=== PATIENT | female | born 2005 | race Caucasian/White ===

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

== ENCOUNTER 2023-03-15 12:28 | Emergency (ER) | payer MEDICAID, SELFPAY ==
[2023-03-15] VITALS (31 sets, daily range): BP systolic 110–147; BP diastolic 54–94; PULSE 76–152; RESP 12–32; TEMP 37; O2SAT 98
--- NOTE | 2023-03-15 12:30 | RT.EKG_ITS ---
APPROVED REPORT Exam: Resting ECG Reason for Exam: tachycardia Patient Location: E HR:118 bpm ECG Measurements Heart Rate 118 AXIS MS 128 P 79 QRSd 77 QRS 79 QT 316 T -35 QTc 443 Conclusion Sinus tachycardia...rate> 99 Nonspecific repolarization abnormalities...ST dep, T neg, 2-3 leads
[2023-03-15 13:02] LABS: Abs Immature Grans 0.02 10^3/uL (0.0-0.06); Absolute Basophil Count 0.05 10^3/uL (0.0-0.2); Absolute Eosinophil Count 0.03 10^3/uL (0.0-0.7); Absolute Lymphocyte Count 2.35 10^3/uL (1.2-3.4); Absolute Monocyte Count 0.44 10^3/uL (0.1-0.8); Absolute Neutrophil Count 4.22 10^3/uL (1.2-6.7); Basophils % 0.7; Eosinophils % 0.4; HCT 37.8 % (36.0-46.0); HGB 12.9 g/dL (11.2-15.7); Immature Grans % 0.3; Lymphocytes % 33.1; MCH 31.2 pg (27.0-33.0); MCHC 34.1 % (32.0-36.0); MCV 92 fL (80-95); MPV 9.2 fL (8.0-11.0); Monocytes % 6.2; Neutrophils % 59.3; Platelet Count 324 10^3/uL (130-400); RBC 4.13 10^6/uL (3.93-5.22); RDW 12.2 % (11.7-14.6); WBC 7.11 10^3/uL (4.4-10.8)
[2023-03-15] MEDS: Lactated Ringers 1,000 ML 1000 ML IV (13:02)
[2023-03-15] MEDS: Dexamethasone 10 MG/ML VIAL IVP (13:02)
[2023-03-15 13:10] LABS: Mono Screening Negative (Negative)
[2023-03-15 13:22] LABS: ALT 15 U/L (14-59); AST 12 U/L (15-37); Albumin 4.4 g/dL (3.4-5.0); Alkaline Phosphatase 103 U/L (46-116); Anion Gap 15.2 mmol/L (3-11); BUN 10 mg/dL (7-18); Bilirubin, Total 0.5 mg/dL (0.2-1.0); CO2 20.8 mmol/L (21.0-32.0); CREATININE 0.9 mg/dL (0.55-1.02); Calcium 9.5 mg/dL (8.5-10.1); Chloride 107 mmol/L (98-107); Estimated GFR 94.44 (mL/min/1.73m2); Glucose 114 mg/dL (74-106); Potassium 3.7 mmol/L (3.5-5.1); Sodium 143 mmol/L (136-145); Total Protein 7.6 g/dL (6.4-8.2); Troponin I < 50 ng/L (< or =60)
--- NOTE | 2023-03-15 14:15 | DI.RAD_ITS ---
Exam(s) XR CHEST 2V PA LATERAL EXAM: XR CHEST 2V PA LATERAL CLINICAL HISTORY: shortness of breath TECHNIQUE: 2D digital imaging was performed. COMPARISON: No exams were available for comparison FINDINGS: HEART: Normal size. Aorta: Not dilated. PULMONARY VASCULATURE: Normal. LUNGS: Clear. PLEURAL SPACE: No pleural effusion or pneumothorax. BONE:Unremarkable for age. Soft tissues: Unremarkable. IMPRESSION: No acute abnormality. DATA REPOSITORY: RADIATION DOSE DELIVERED:
[2023-03-15 14:26] LABS: COVID-19 PCR Negative (Negative); Influenza A PCR Negative (Negative); Influenza B PCR Negative (Negative); RSV PCR Negative (Negative)
[2023-03-15 14:27] LABS: Source Nasopharynx
--- NOTE | 2023-03-15 15:16 | ED.GENADUL_ITS ---
HPI General Date/Time Provider Initiated Documentation: 03/15/23 12:45 . HPI Narrative: This 17-year-old female with history of oppositional behavior, anxiety, ADHD, familial cold auto inflammatory syndrome and numerous allergies presents with report of difficulty swallowing since 11:00 last night. Patient reportedly had some venison with some sort of spicy honey sauce and approximately 5 hours later developed some difficulty swallowing which she describes as a tightness with some shortness of breath. She used her inhaler for this and felt improvement. She not taken any additional medications at this time and her symptoms have persisted. She states she has a sore throat. Denies any additional complaints at this time. Receives an injection monthly for report of chronic fevers. Denies any drooling. Denies any rashes or lesions. Denies any chance of . Overall feeling mild improvement in symptoms per patient. Related Data Home Medications Medication Instructions Recorded Confirmed ibuprofen 200 mg tablet (Ibuprofen 600 mg PO PRN PRN 08/14/18 03/15/23 IB) inhalational spacing device (Space ##2 12/17/20 03/15/23 Chamber Plus) albuterol sulfate 90 mcg/actuation 2 puff inhalation Q4H PRN ##2 05/24/21 03/15/23 aerosol inhaler (ProAir HFA) chlorhexidine gluconate 0.12 % 15 ml mucous membrane BID #118 mL 05/24/21 03/15/23 mouthwash (Peridex) epinephrine 0.3 mg/0.3 mL 0.3 mg (0.3 mL) IM ONCE ##1 05/24/21 03/15/23 injection, auto-injector (EpiPen 2-Wellington) hydrocortisone acetate 1 % topical 1 applic topical BID #28.4 grams 05/24/21 03/15/23 cream ketotifen fumarate 0.025 % (0.035 1 drp ophthalmic (eye) BID PRN 05/24/21 03/15/23 %) eye drops allergy symptoms #5 mL cyproheptadine 4 mg tablet 4 mg PO BID #120 tabs 03/13/22 03/15/23 topiramate 25 mg tablet 25 mg PO QHS #90 tabs 03/21/22 03/15/23 topiramate 50 mg tablet 50 mg PO QAM #90 tabs 03/21/22 03/15/23 naproxen sodium 220 mg capsule 220 mg PO Q8H PRN pain #10 caps 05/22/22 03/15/23 ondansetron 4 mg disintegrating 4 mg PO Q8H PRN PRN nausea and 05/22/22 03/15/23 tablet vomiting #8 tabs cetirizine 10 mg tablet 10 mg PO DAILY #90 tab-caps 07/24/22 03/15/23 norethindrone (contraceptive) 0.35 0.35 mg PO DAILY #84 tabs 08/14/22 03/15/23 mg tablet famotidine 10 mg tablet 10 mg PO BID #60 tabs 09/20/22 03/15/23 Symbicort 80 mcg-4.5 mcg/actuation See Rx Instructions .Route 11/06/22 03/15/23 HFA aerosol inhaler .COMPLEX #10.2 grams (budesonide-formoterol) sertraline 100 mg tablet 100 mg PO DAILY #30 tabs 01/29/23 03/15/23 Previous Rx's Medication Instructions Recorded inhalational spacing device (Space ##2 12/17/20 Chamber Plus) albuterol sulfate 90 mcg/actuation 2 puff inhalation Q4H PRN ##2 05/24/21 aerosol inhaler (ProAir HFA) chlorhexidine gluconate 0.12 % 15 ml mucous membrane BID #118 mL 05/24/21 mouthwash (Peridex) epinephrine 0.3 mg/0.3 mL 0.3 mg (0.3 mL) IM ONCE ##1 05/24/21 injection, auto-injector (EpiPen 2-Wellington) hydrocortisone acetate 1 % topical 1 applic topical BID #28.4 grams 05/24/21 cream ketotifen fumarate 0.025 % (0.035 1 drp ophthalmic (eye) BID PRN 05/24/21 %) eye drops allergy symptoms #5 mL cyproheptadine 4 mg tablet 4 mg PO BID #120 tabs 03/13/22 topiramate 25 mg tablet 25 mg PO QHS #90 tabs 03/21/22 topiramate 50 mg tablet 50 mg PO QAM #90 tabs 03/21/22 naproxen sodium 220 mg capsule 220 mg PO Q8H PRN pain #10 caps 05/22/22 ondansetron 4 mg disintegrating 4 mg PO Q8H PRN PRN nausea and 05/22/22 tablet vomiting #8 tabs cetirizine 10 mg tablet 10 mg PO DAILY #90 tab-caps 07/24/22 norethindrone (contraceptive) 0.35 0.35 mg PO DAILY #84 tabs 08/14/22 mg tablet famotidine 10 mg tablet 10 mg PO BID #60 tabs 09/20/22 Symbicort 80 mcg-4.5 mcg/actuation See Rx Instructions .Route 11/06/22 HFA aerosol inhaler .COMPLEX #10.2 grams (budesonide-formoterol) sertraline 100 mg tablet 100 mg PO DAILY #30 tabs 01/29/23 Allergies Allergy/AdvReac Type Severity Reaction Status Date / Time bee venom protein (honey bee) Allergy Severe PROBLEMS Verified 02/01/23 13:04 BREATHING/ HIVES davis Allergy Mild Skin Rash Verified 02/01/23 13:04 cow dander Allergy Verified 02/01/23 13:04 grass pollen Allergy Verified 02/01/23 13:04 perfume AdvReac Mild watery Verified 02/01/23 13:04 eyes, runny nose, face gets blotchy pollen extracts AdvReac Mild watery Verified 02/01/23 13:04 eyes, runny nose, face gets blotchy cologne Allergy Mild Uncoded 02/01/23 13:04 hay Allergy Mild Uncoded 02/01/23 13:04 Haile] Allergy Mild rash Uncoded 02/01/23 13:04 sun Allergy Mild skin Uncoded 02/01/23 13:04 blotches Halloween makeup AdvReac Skin Rash Uncoded 02/01/23 13:04 General Stated Complaint: Allergic GARY: 3 Course Vital Signs Vital signs: Vital Signs Temperature 37.0 C 03/15/23 12:32 Pulse 128 H 03/15/23 12:32 Respiratory Rate 24 03/15/23 12:32 Blood Pressure 147/94 H 03/15/23 12:32 Pulse Oximetry 98 03/15/23 12:32 Temperature 37.0 C 03/15/23 12:32 Temperature Source Temporal Artery Scan 03/15/23 12:32 Pulse 90 03/15/23 13:46 Pulse 92 H 03/15/23 13:50 Respiratory Rate 14 01/25/24 13:50 Respiratory Effort Normal 03/15/23 13:11 Respiratory Pattern Normal 03/15/23 13:11 Blood Pressure 111/57 L 03/15/23 13:46 Blood Pressure Mean 73 03/15/23 13:46 Pulse Oximetry 98 03/15/23 12:32 Oxygen Delivery Method Room Air 03/15/23 12:32 Oxygen Flow Rate 0 03/15/23 12:32 Lab/Test Results Lab/Test Results: 03/15/23 13:20 Tonsil - Left Group A Streptococcus Culture - Pending Laboratory Tests Range/Units 03/15/23 03/15/23 12:55 13:44 WBC (4.4-10.8) 10^3/uL 7.11 RBC (3.93-5.22) 10^6/uL 4.13 Hgb (11.2-15.7) g/dL 12.9 Hct (36.0-46.0) % 37.8 MCV (80-95) fL 92 MCH (27.0-33.0) pg 31.2 MCHC (32.0-36.0) % 34.1 RDW (11.7-14.6) % 12.2 Plt Count (130-400) 10^3/uL 324 MPV (8.0-11.0) fL 9.2 Immature Gran % 0.3 Neutrophils % 59.3 Lymphocytes % 33.1 Monocytes % 6.2 Eosinophils % 0.4 Basophils % 0.7 Nucleated RBC % (0.0-0.3) % 0.0 Absolute Neutrophils (1.2-6.7) 10^3/uL 4.22 Absolute Lymphocytes (1.2-3.4) 10^3/uL 2.35 Absolute Monocytes (0.1-0.8) 10^3/uL 0.44 Absolute Eosinophils (0.0-0.7) 10^3/uL 0.03 Absolute Basophils (0.0-0.2) 10^3/uL 0.05 Sodium (136-145) mmol/L 143 Potassium (3.5-5.1) mmol/L 3.7 Chloride (98-107) mmol/L 107 Carbon Dioxide (21.0-32.0) mmol/L 20.8 L Anion Gap (3-11) mmol/L 15.2 H BUN (7-18) mg/dL 10 Creatinine (0.55-1.02) mg/dL 0.9 Est GFR (CKD-EPI 2020) (mL/min/1.73m2) 94.44 Glucose (74-106) mg/dL 114 H Calcium (8.5-10.1) mg/dL 9.5 Total Bilirubin (0.2-1.0) mg/dL 0.5 AST (15-37) U/L 12 L ALT (14-59) U/L 15 Alkaline Phosphatase (46-116) U/L 103 Troponin I (< or =60) ng/L < 50 Total Protein (6.4-8.2) g/dL 7.6 Albumin (3.4-5.0) g/dL 4.4 COVID-19 Source Nasopharynx SARS-CoV-2 (PCR) (Negative) Negative Monoscreen (Negative) Negative Influenza Type A (PCR) (Negative) Negative Influenza Type B (PCR) (Negative) Negative RSV (PCR) (Negative) Negative POC- Test(urine) Negative POC Strep Test-RADHA(Rapid) Start: 03/15/23 12:47 Freq: .Rapid Strep Test Status: Active Protocol: Document 03/15/23 13:51 N.RUDDY (Rec: 03/15/23 13:51 NYUDITH [id number]) Strep test-RADHA(Rapid)-POC POC-Strep test-RADHA (Rapid) Negative POC-Strep test-RADHA (Rapid) Negative Medical Decision Making 17-year-old female in no acute distress presents with some difficulty swallowing and shortness of breath, generally feeling unwell, uvula patent oropharynx midline, maintaining secretions, lungs clear to auscultation, sinus tachycardia, temp of 100.7, administer Tylenol and fluids, labs consistent with dehydration, no other significant acute abnormality on labs Given a dose of steroid to help with swallowing difficulties, low suspicion clinically for pulmonary embolism, no calf swelling or tenderness, no tachycardia, no history of coagulopathy, no recent flights, surgeries, long drives. After fluids, patient pulse is 90, oxygenation 98% on room air, blood pressure stable at 122/82, no respiratory distress, very low suspicion clinically for pulmonary embolism, patient appears quite anxious on exam and is looking or showing signs of marked improvement at time of reassessment Troponin negative, negative test Patient will be discharged home and encouraged to consume regular fluids, Tylenol, received 72-hour Decadron dose in the emergency department and will take Benadryl as needed Will continue to follow fevers, chest x-ray without acute abnormality denies any urinary complaints, no abdominal tenderness lungs are clear to auscultation Given the threshold to return with new or worsening complaints, will stay away from honey and other products in the tricky until reassessed Case discussed with Dr. Berger will reevaluate patient in the office tomorrow Discharged home in stable condition with stable vitals, oropharynx patent, vital signs improved Quality:SDOH Health Related Social Needs: No Data to Display PFSH All Active Problems (Updated 03/15/23 @ 15:10 by AMANDA Leonard) Fever (Acute) Pharyngitis (Acute) Familial cold autoinflammatory syndrome (Chronic) Followed by rheumatology at [facility] Anxiety (Chronic) Encounter for vaccination (Acute) Parosmia (Acute) Allergic rhinitis (Acute) School problem (Chronic) IEP updated 05/11/20-05/10/21: Counseling services once a week 45 min; Math intervention 4 times a week; reading intervention twice a week; updated IEP in chart as of 07/21/20 Custody issue (Acute) IN CUSTODY OF [employer] SINCE 2 MONTHS OF AGE- PARENTS NOT INVOLVED Dizziness (Acute) 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 On IEP. 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 Pectus excavatum (Chronic 12/26/11) surgery following 02/04 Oppositional behavior (Chronic 08/16/15) Insomnia (Chronic 02/05/17) Frequent headaches (Chronic 09/10/14) neurology- topamax rx Asthma (Chronic 05/24/12) 10/2013 mild intermittent ADHD (attention deficit hyperactivity disorder), combined type (Chronic 09/07/14) diagnosed by Child Development at [facility]- started concerta Medical History ADHD (attention deficit hyperactivity disorder) Asthma Bee sting allergy Depression GERD (gastroesophageal reflux disease) Sleep difficulties Speech delay Surgical History Adenoidectomy Tonsillectomy Family History Mother No problems noted. Father Mental disorder schizophrenia Other Mental disorder paternal femaily members Developmental delay sibs/half sibs ADHD (attention deficit hyperactivity disorder) maternal and paternal sides Social History Smoking/Tobacco Use Status: Never Smoking risk assessment performed?: Yes Alcohol Intake: never Drug use: Never Substance use type: does not use Housing: house Communication Needs: None and Corrective Lenses Education Level: high school Details: 11th grade () [place] Pets and animals: Yes (dogs, cat, ferret) Pets and animals: cat(s), dog(s) and ferret(s) Do you feel safe at home: Yes Do you feel safe in your relationship?: Yes Additional Social history: GRANDMOTHER WITH CUSTODY SINCE 2 MONTHS OF AGE- PARENTS HOMELESS AND NEGLECT Discharge Plan Disposition Patient Disposition: Home Discharge Details Clinical Impression: Pharyngitis, Familial cold autoinflammatory syndrome, Fever Primary Care Provider: Mukesh Keating ED Provider: Lissa Hernandez Home Meds and New Rx's Prescriptions: Continued naproxen sodium 220 mg capsule 220 mg PO Q8H PRN (Reason: pain) Qty: 10 0RF ondansetron 4 mg tablet,disintegrating 4 mg PO Q8H PRN PRN (Reason: nausea and vomiting) Qty: 8 0RF famotidine 10 mg tablet 10 mg PO BID Qty: 60 0RF (DME) Space Chamber Plus Spacer 1 ea Miscellaneous Q4H PRN Qty: 2 0RF Rx Instructions: use with inhaler every 4 hours as needed albuterol sulfate [ProAir HFA] 90 mcg/actuation HFA aerosol inhaler 2 puff Inhalation Q4H PRN Qty: 2 2RF Rx Instructions: give 2puffs with spacer every 4 hr as needed chlorhexidine gluconate [Peridex] 0.12 % mouthwash 15 ml mucous membrane BID Qty: 118 2RF Rx Instructions: rinse mouth 30 seconds and spit out twice a day epinephrine [EpiPen 2-Wellington] 0.3 mg/0.3 mL auto-injector 0.3 mg IM ONCE Qty: 1 2RF hydrocortisone acetate 1 % cream 1 applic Topical BID Qty: 28.4 1RF Rx Instructions: apply to areas of allergic reaction on face or body- twice a day for up to 7 days ketotifen fumarate 0.025 % (0.035 %) drops 1 drp Ophthalmic BID PRN (Reason: allergy symptoms) Qty: 5 3RF Rx Instructions: use for dry eyes cyproheptadine 4 mg tablet 4 mg PO BID Qty: 120 1RF Rx Instructions: IN AM AND HS- please dispense in 2 bottles thank you! topiramate 25 mg tablet 25 mg PO QHS Qty: 90 3RF topiramate 50 mg tablet 50 mg PO QAM Qty: 90 3RF cetirizine 10 mg tablet 10 mg PO DAILY Qty: 90 3RF norethindrone (contraceptive) 0.35 mg tablet 0.35 mg PO DAILY Qty: 84 3RF Rx Instructions: start day 1 of menstrual cycle budesonide-formoterol [Symbicort] 80-4.5 mcg/actuation HFA aerosol inhaler See Rx Instructions .ROUTE .COMPLEX Qty: 10.2 2RF Dose Instruction: INHALE 2 PUFFS BY MOUTH TWICE DAILY. MAY ALSO USE 1-2 PUFFS EVERY 4 HOURS NEEDED Rx Instructions: INHALE 2 PUFFS BY MOUTH TWICE DAILY. MAY ALSO USE 1-2 PUFFS EVERY 4 HOURS NEEDED sertraline 100 mg tablet 100 mg PO DAILY Qty: 30 2RF ibuprofen [Ibuprofen IB] 200 mg tablet 600 mg PO PRN PRN Discharge Instructions Instructions: Urticaria (ED), Pharyngitis (ED), Fever in Adults (ED) Additional Instructions: Please call the barrel raiser helper's office first thing in the morning to be reassessed Continue on your prescribed medications Stay away from [facility] to have dedicated testing You may take Benadryl as needed for symptoms, 25 mg Please keep yourself hydrated you are dehydrated, you did receive fluids in the emergency department and you are feeling improvement Take Tylenol as needed for fever, your temperature was 100.7 in the emergency department I do not see an obvious source of infection, this may be viral or related to her rheumatological history You may take Tylenol 500 mg every 4-6 hours as needed for fever control, fevers any temperature over 100.4 Referrals: Mukesh Keating MD [Primary Care Provider] -
== END 2023-03-15 15:25 | disposition home or self-care (01) ==
PROVIDERS: Emergency Provider Physician Assistant; PCP Pediatrics
DX: J02.9 Acute pharyngitis, unspecified (principal); M04.2 Cryopyrin-associated periodic syndromes; R05.9 Cough, unspecified
CPT/HCPCS: 80053; 81025; 87637; 87880; 93005; 96361; 96374; 96375; 99285; 71046; 84484; 85025; 86308; 87081; 93010; 99284; J0131; J1100

== ENCOUNTER 2023-03-17 15:21 | Emergency (ER) | payer MEDICAID, SELFPAY ==
[2023-03-17] VITALS (36 sets, daily range): BP systolic 115–146; BP diastolic 56–99; PULSE 68–136; RESP 10–23; TEMP 37.7; O2SAT 99–100
--- NOTE | 2023-03-17 15:15 | RT.EKG_ITS ---
APPROVED REPORT Exam: Resting ECG Reason for Exam: High Heart Rate Patient Location: E HR:91 bpm ECG Measurements Heart Rate 91 AXIS MN 122 P 80 QRSd 83 QRS 71 QT 353 T [id number] QTc 436 Conclusion Sinus rhythm normal axis no ST changes
[2023-03-17 15:48] LABS: Abs Immature Grans 0.02 10^3/uL (0.0-0.06); Absolute Basophil Count 0.06 10^3/uL (0.0-0.2); Absolute Eosinophil Count 0.02 10^3/uL (0.0-0.7); Absolute Lymphocyte Count 2.72 10^3/uL (1.2-3.4); Absolute Monocyte Count 0.39 10^3/uL (0.1-0.8); Absolute Neutrophil Count 4.46 10^3/uL (1.2-6.7); Basophils % 0.8; Eosinophils % 0.3; HGB 12.9 g/dL (11.2-15.7); Immature Grans % 0.3; Lymphocytes % 35.5; MCH 31.2 pg (27.0-33.0); MCHC 33.9 % (32.0-36.0); MCV 92 fL (80-95); MPV 9.3 fL (8.0-11.0); Monocytes % 5.1; Platelet Count 297 10^3/uL (130-400); RBC 4.13 10^6/uL (3.93-5.22); RDW 12.3 % (11.7-14.6); RDW-SD 41.4 fL; WBC 7.67 10^3/uL (4.4-10.8)
[2023-03-17] MEDS: LORazepam 2 MG/ML VIAL 0.5 MG IVP (15:49)
[2023-03-17] MEDS: Normal Saline 1,000 ML 1000 ML IV ×2 (15:50→16:55)
--- NOTE | 2023-03-17 15:50 | ED.GENADUL_ITS ---
HPI General Date/Time Provider Initiated Documentation: 03/17/23 15:38 . Limitations to Documentation: no limitations . Information obtained by: patient . HPI Narrative: 17-year-old female with past medical history including familial colorectal inflammatory syndrome, anxiety, asthma, presents for evaluation of palpitations. She reports that when she stands up she feels like her heart is racing and she feels lightheaded. She has not had any loss of consciousness or syncope. Denies any chest pain. She states when she lays back down she feels better. She reports that the symptoms have been ongoing since she was seen in the emergency department 2 days ago for an allergic reaction to honey. She was not discharged with any medications. She was not given epinephrine at that time. Related Data Home Medications Medication Instructions Recorded Confirmed ibuprofen 200 mg tablet (Ibuprofen 600 mg PO PRN PRN 08/14/18 03/17/23 IB) inhalational spacing device (Space ##2 12/17/20 03/15/23 Chamber Plus) chlorhexidine gluconate 0.12 % 15 ml mucous membrane BID #118 mL 05/24/21 03/17/23 mouthwash (Peridex) epinephrine 0.3 mg/0.3 mL 0.3 mg (0.3 mL) IM ONCE ##1 05/24/21 03/17/23 injection, auto-injector (EpiPen 2-Wellington) hydrocortisone acetate 1 % topical 1 applic topical BID #28.4 grams 05/24/21 03/17/23 cream ketotifen fumarate 0.025 % (0.035 1 drp ophthalmic (eye) BID PRN 05/24/21 03/17/23 %) eye drops allergy symptoms #5 mL cyproheptadine 4 mg tablet 4 mg PO BID #120 tabs 03/13/22 03/17/23 topiramate 25 mg tablet 25 mg PO QHS #90 tabs 03/21/22 03/17/23 topiramate 50 mg tablet 50 mg PO QAM #90 tabs 03/21/22 03/17/23 naproxen sodium 220 mg capsule 220 mg PO Q8H PRN pain #10 caps 05/22/22 03/17/23 ondansetron 4 mg disintegrating 4 mg PO Q8H PRN PRN nausea and 05/22/22 03/17/23 tablet vomiting #8 tabs cetirizine 10 mg tablet 10 mg PO DAILY #90 tab-caps 07/24/22 03/17/23 norethindrone (contraceptive) 0.35 0.35 mg PO DAILY #84 tabs 08/14/22 03/17/23 mg tablet famotidine 10 mg tablet 10 mg PO BID #60 tabs 09/20/22 03/17/23 Symbicort 80 mcg-4.5 mcg/actuation See Rx Instructions .Route 11/06/22 03/17/23 HFA aerosol inhaler .COMPLEX #10.2 grams (budesonide-formoterol) sertraline 100 mg tablet 100 mg PO DAILY #30 tabs 01/29/23 03/17/23 bupropion HCl 150 mg 24 hr tablet, 150 mg PO QAM #30 tabs 03/16/23 03/17/23 extended release (Wellbutrin XL) Previous Rx's Medication Instructions Recorded inhalational spacing device (Space ##2 12/17/20 Chamber Plus) chlorhexidine gluconate 0.12 % 15 ml mucous membrane BID #118 mL 05/24/21 mouthwash (Peridex) epinephrine 0.3 mg/0.3 mL 0.3 mg (0.3 mL) IM ONCE ##1 05/24/21 injection, auto-injector (EpiPen 2-Wellington) hydrocortisone acetate 1 % topical 1 applic topical BID #28.4 grams 05/24/21 cream ketotifen fumarate 0.025 % (0.035 1 drp ophthalmic (eye) BID PRN 05/24/21 %) eye drops allergy symptoms #5 mL cyproheptadine 4 mg tablet 4 mg PO BID #120 tabs 03/13/22 topiramate 25 mg tablet 25 mg PO QHS #90 tabs 03/21/22 topiramate 50 mg tablet 50 mg PO QAM #90 tabs 03/21/22 naproxen sodium 220 mg capsule 220 mg PO Q8H PRN pain #10 caps 05/22/22 ondansetron 4 mg disintegrating 4 mg PO Q8H PRN PRN nausea and 05/22/22 tablet vomiting #8 tabs cetirizine 10 mg tablet 10 mg PO DAILY #90 tab-caps 07/24/22 norethindrone (contraceptive) 0.35 0.35 mg PO DAILY #84 tabs 08/14/22 mg tablet famotidine 10 mg tablet 10 mg PO BID #60 tabs 09/20/22 Symbicort 80 mcg-4.5 mcg/actuation See Rx Instructions .Route 11/06/22 HFA aerosol inhaler .COMPLEX #10.2 grams (budesonide-formoterol) sertraline 100 mg tablet 100 mg PO DAILY #30 tabs 01/29/23 bupropion HCl 150 mg 24 hr tablet, 150 mg PO QAM #30 tabs 03/16/23 extended release (Wellbutrin XL) Allergies Allergy/AdvReac Type Severity Reaction Status Date / Time bee venom protein (honey bee) Allergy Severe PROBLEMS Verified 03/17/23 15:30 BREATHING/ HIVES honey Allergy Severe Verified 03/17/23 15:30 davis Allergy Mild Skin Rash Verified 03/17/23 15:30 cow dander Allergy Verified 03/17/23 15:30 grass pollen Allergy Verified 03/17/23 15:30 perfume AdvReac Mild watery Verified 03/17/23 15:30 eyes, runny nose, face gets blotchy pollen extracts AdvReac Mild watery Verified 03/17/23 15:30 eyes, runny nose, face gets blotchy cologne Allergy Mild Uncoded 03/17/23 15:30 hay Allergy Mild Uncoded 03/17/23 15:30 Haile] Allergy Mild rash Uncoded 03/17/23 15:30 sun Allergy Mild skin Uncoded 03/17/23 15:30 blotches Halloween makeup AdvReac Skin Rash Uncoded 03/17/23 15:30 General Stated Complaint: Palpitatns GARY: 2 Exam Narrative Exam Narrative: Review of Systems: All systems reviewed & are unremarkable except as noted in HPI and below Well-developed, tearful, anxious NACT PERRL, normal conjunctiva RRR, Unlabored respiratory effort, clear breath sounds bilaterally Nondistended abdomen Extremities w/o deformity, no cyanosis, no edema No rashes or lesions. no focal neurologic deficits Course Vital Signs Vital signs: Vital Signs Temperature 37.7 C H 03/17/23 15:25 Pulse 99 H 03/17/23 15:25 Respiratory Rate 18 03/17/23 15:25 Blood Pressure 146/99 H 03/17/23 15:25 Pulse Oximetry 100 03/17/23 15:25 Temperature 37.7 C H 03/17/23 15:25 Pulse 99 H 03/17/23 15:25 Respiratory Rate 18 03/17/23 15:25 Respiratory Effort Non-Labored 03/17/23 15:28 Blood Pressure 146/99 H 03/17/23 15:25 Pulse Oximetry 100 03/17/23 15:25 Pain Level 6 03/17/23 15:25 Lab/Test Results Lab/Test Results: Laboratory Tests Range/Units 03/17/23 15:35 WBC (4.4-10.8) 10^3/uL 7.67 RBC (3.93-5.22) 10^6/uL 4.13 Hgb (11.2-15.7) g/dL 12.9 Hct (36.0-46.0) % 38.0 MCV (80-95) fL 92 MCH (27.0-33.0) pg 31.2 MCHC (32.0-36.0) % 33.9 RDW (11.7-14.6) % 12.3 Plt Count (130-400) 10^3/uL 297 MPV (8.0-11.0) fL 9.3 Immature Gran % 0.3 Neutrophils % 58.0 Lymphocytes % 35.5 Monocytes % 5.1 Eosinophils % 0.3 Basophils % 0.8 Nucleated RBC % (0.0-0.3) % 0.0 Absolute Neutrophils (1.2-6.7) 10^3/uL 4.46 Absolute Lymphocytes (1.2-3.4) 10^3/uL 2.72 Absolute Monocytes (0.1-0.8) 10^3/uL 0.39 Absolute Eosinophils (0.0-0.7) 10^3/uL 0.02 Absolute Basophils (0.0-0.2) 10^3/uL 0.06 Medical Decision Making Emergent evaluation of palpitations. Initial differential includes dehydration, vasovagal episode, orthostatic. Plan for lab work, IV fluids. Her orthostatic vital signs are positive. Will continue to resuscitate with IV fluids. She is highly anxious. Will give a dose of Ativan and reassess. 1640: On reassessment, the patient reports that she still feels dizzy. She has received a liter of IV fluids, but her heart rate still goes from the 80s to 120s when she stands up. Lab work is unremarkable. Will repeat a fluid bolus and reassess. Final disposition pending vital sign reassessment after second liter. Medical Records Medical records reviewed: Yes I reviewed the patient's medical records. Lab Data Lab results reviewed: Yes I reviewed the patient's lab results. ECG Data Attestation: I personally reviewed and interpreted this ECG (s) as follows: Interpretation: Sinus 91 normal axis no acute ischemic changes Quality:SDOH Health Related Social Needs: No Data to Display PFSH All Active Problems (Updated 03/17/23 @ 16:37 by Darien Betancourt MD) Heart palpitations (Acute) Orthostatic dizziness (Acute) Fever (Acute) Pharyngitis (Acute) Familial cold autoinflammatory syndrome (Chronic) Followed by rheumatology at 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 On IEP. 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 Father Mental disorder schizophrenia Other Mental disorder paternal femaily members Developmental delay sibs/half sibs ADHD (attention deficit hyperactivity disorder) maternal and paternal sides Social History Smoking/Tobacco Use Status: Never Smoking risk assessment performed?: Yes Alcohol Intake: never Drug use: Never Substance use type: does not use Housing: house Communication Needs: None and Corrective Lenses Education Level: high school Details: 11th grade () [place] Pets and animals: Yes (dogs, cat, ferret) Pets and animals: cat(s), dog(s) and ferret(s) Do you feel safe at home: Yes Do you feel safe in your relationship?: Yes Additional Social history: GRANDMOTHER WITH CUSTODY SINCE 2 MONTHS OF AGE- PARENTS HOMELESS AND NEGLECT Discharge Plan Discharge Details Chief Complaint: Palpitatns Clinical Impression: Orthostatic dizziness, Heart palpitations Primary Care Provider: Mukesh Keating ED Provider: Darine Betancourt [place] Meds and New Rx's Prescriptions: No Action naproxen sodium 220 mg capsule 220 mg PO Q8H PRN (Reason: pain) Qty: 10 0RF ondansetron 4 mg tablet,disintegrating 4 mg PO Q8H PRN PRN (Reason: nausea and vomiting) Qty: 8 0RF famotidine 10 mg tablet 10 mg PO BID Qty: 60 0RF bupropion HCl [Wellbutrin XL] 150 mg tablet extended release 24 hr 150 mg PO QAM Qty: 30 0RF (DME) Space Chamber Plus Spacer 1 ea Miscellaneous Q4H PRN Qty: 2 0RF Rx Instructions: use with inhaler every 4 hours as needed chlorhexidine gluconate [Peridex] 0.12 % mouthwash 15 ml mucous membrane BID Qty: 118 2RF Rx Instructions: rinse mouth 30 seconds and spit out twice a day epinephrine [EpiPen 2-Wellington] 0.3 mg/0.3 mL auto-injector 0.3 mg IM ONCE Qty: 1 2RF hydrocortisone acetate 1 % cream 1 applic Topical BID Qty: 28.4 1RF Rx Instructions: apply to areas of allergic reaction on face or body- twice a day for up to 7 days ketotifen fumarate 0.025 % (0.035 %) drops 1 drp Ophthalmic BID PRN (Reason: allergy symptoms) Qty: 5 3RF Rx Instructions: use for dry eyes cyproheptadine 4 mg tablet 4 mg PO BID Qty: 120 1RF Rx Instructions: IN AM AND HS- please dispense in 2 bottles thank you! topiramate 25 mg tablet 25 mg PO QHS Qty: 90 3RF topiramate 50 mg tablet 50 mg PO QAM Qty: 90 3RF cetirizine 10 mg tablet 10 mg PO DAILY Qty: 90 3RF norethindrone (contraceptive) 0.35 mg tablet 0.35 mg PO DAILY Qty: 84 3RF Rx Instructions: start day 1 of menstrual cycle budesonide-formoterol [Symbicort] 80-4.5 mcg/actuation HFA aerosol inhaler See Rx Instructions .ROUTE .COMPLEX Qty: 10.2 2RF Dose Instruction: INHALE 2 PUFFS BY MOUTH TWICE DAILY. MAY ALSO USE 1-2 PUFFS EVERY 4 HOURS NEEDED Rx Instructions: INHALE 2 PUFFS BY MOUTH TWICE DAILY. MAY ALSO USE 1-2 PUFFS EVERY 4 HOURS NEEDED sertraline 100 mg tablet 100 mg PO DAILY Qty: 30 2RF ibuprofen [Ibuprofen IB] 200 mg tablet 600 mg PO PRN PRN
[2023-03-17 16:14] LABS: ALT 13 U/L (14-59); AST 13 U/L (15-37); Albumin 4.7 g/dL (3.4-5.0); Alkaline Phosphatase 95 U/L (46-116); Anion Gap 12.5 mmol/L (3-11); BUN 15 mg/dL (7-18); Bilirubin, Total 0.5 mg/dL (0.2-1.0); CO2 23.5 mmol/L (21.0-32.0); CREATININE 0.8 mg/dL (0.55-1.02); Calcium 9.6 mg/dL (8.5-10.1); Chloride 107 mmol/L (98-107); Estimated GFR 108.78 (mL/min/1.73m2); Glucose 104 mg/dL (74-106); Potassium 3.5 mmol/L (3.5-5.1); Sodium 143 mmol/L (136-145); Total Protein 7.8 g/dL (6.4-8.2)
[2023-03-17 16:17] LABS: TSH (W/Ref FT4) 2.29 uIU/mL (0.52-4.13)
--- NOTE | 2023-03-17 17:03 | W.EDPROG ---
Date of service: 03/17/23 Time of Service: 17:04 Medical Decision Making I received signout on this 17-year-old female in the emergency department in the setting of palpitations with dizziness. She has not been eating and drinking well over the past several days secondary to a visit for an allergic reaction last week. She has reassuring labs. She was found to be mildly orthostatic. She is receiving a second liter of IV fluids. She has also received lorazepam. Plan is to repeat orthostatic vital signs. She has recently been started on bupropion. 6:30 PM Patient felt markedly improved. She received 2 L. She was not nauseous nor vomiting. Her heart rate did not go up when she stood following fluids. It transiently increased when she she was supine. At rest her heart rate is now in the 70s. On reassessment she remains in no acute distress and is eager for discharge. It is certainly possible that the patient may have POTS syndrome and may require autonomic testing. Alternatively her new bupropion could be causing dizziness and possibly a tacky dysrhythmia although none were captured on telemetry in the emergency department. Given that she is not vomiting and she has no acute electrolyte abnormalities I feel that she is appropriate for an empiric trial of discharge with expectant outpatient management PCP follow-up. Quality:SDOH Health Related Social Needs: No Data to Display Sign Out Sign Out Data: Sign Out Comment: 17y F with dizziness with standing. +orthostatic HR (80>120s) labs unremarkable. +++anxiety plan for 2L and repeat orthostatics Last updated by Darien Betancourt MD at 03/17/23 16:39 Discharge Plan Disposition Patient Disposition: Home Discharge Details Clinical Impression: Orthostatic dizziness, Heart palpitations Primary Care Provider: Mukesh Keating ED Provider: Tobi Lorenzo Home Meds and New Rx's Prescriptions: Continued naproxen sodium 220 mg capsule 220 mg PO Q8H PRN (Reason: pain) Qty: 10 0RF ondansetron 4 mg tablet,disintegrating 4 mg PO Q8H PRN PRN (Reason: nausea and vomiting) Qty: 8 0RF famotidine 10 mg tablet 10 mg PO BID Qty: 60 0RF bupropion HCl [Wellbutrin XL] 150 mg tablet extended release 24 hr 150 mg PO QAM Qty: 30 0RF (DME) Space Chamber Plus Spacer 1 ea Miscellaneous Q4H PRN Qty: 2 0RF Rx Instructions: use with inhaler every 4 hours as needed chlorhexidine gluconate [Peridex] 0.12 % mouthwash 15 ml mucous membrane BID Qty: 118 2RF Rx Instructions: rinse mouth 30 seconds and spit out twice a day epinephrine [EpiPen 2-Wellington] 0.3 mg/0.3 mL auto-injector 0.3 mg IM ONCE Qty: 1 2RF hydrocortisone acetate 1 % cream 1 applic Topical BID Qty: 28.4 1RF Rx Instructions: apply to areas of allergic reaction on face or body- twice a day for up to 7 days ketotifen fumarate 0.025 % (0.035 %) drops 1 drp Ophthalmic BID PRN (Reason: allergy symptoms) Qty: 5 3RF Rx Instructions: use for dry eyes cyproheptadine 4 mg tablet 4 mg PO BID Qty: 120 1RF Rx Instructions: IN AM AND HS- please dispense in 2 bottles thank you! topiramate 25 mg tablet 25 mg PO QHS Qty: 90 3RF topiramate 50 mg tablet 50 mg PO QAM Qty: 90 3RF cetirizine 10 mg tablet 10 mg PO DAILY Qty: 90 3RF norethindrone (contraceptive) 0.35 mg tablet 0.35 mg PO DAILY Qty: 84 3RF Rx Instructions: start day 1 of menstrual cycle budesonide-formoterol [Symbicort] 80-4.5 mcg/actuation HFA aerosol inhaler See Rx Instructions .ROUTE .COMPLEX Qty: 10.2 2RF Dose Instruction: INHALE 2 PUFFS BY MOUTH TWICE DAILY. MAY ALSO USE 1-2 PUFFS EVERY 4 HOURS NEEDED Rx Instructions: INHALE 2 PUFFS BY MOUTH TWICE DAILY. MAY ALSO USE 1-2 PUFFS EVERY 4 HOURS NEEDED sertraline 100 mg tablet 100 mg PO DAILY Qty: 30 2RF ibuprofen [Ibuprofen IB] 200 mg tablet 600 mg PO PRN PRN Discharge Instructions Instructions: Heart Palpitations (ED) Additional Instructions: You were seen in the emergency department for your heart palpitations. Your ECG showed that your heart was beating in normal rhythm. Please ensure that you are able to eat and drink at home and follow-up with the primary care provider as needed next week. Please return to the emergency department if you develop nausea vomiting or any difficulty breathing. Discharge Data Discharge Date/Time-TO BE ENTERED AT DEPARTURE: 03/17/23 18:52
== END 2023-03-17 18:52 | disposition home or self-care (01) ==
PROVIDERS: Emergency Medicine; Emergency Provider Emergency Medicine; PCP Pediatrics
DX: R00.2 Palpitations (principal); K50.10 Crohn's disease of large intestine without complications; F41.9 Anxiety disorder, unspecified; J45.909 Unspecified asthma, uncomplicated; R42 Dizziness and giddiness
CPT/HCPCS: 00123; 80053; 81025; 93005; 96361; 96374; 99284; 84443; 85025; 93010; J2060

== ENCOUNTER 2023-04-09 17:57 | Emergency (ER) | payer MEDICAID, SELFPAY ==
[2023-04-09 18:22] VITALS: BP 144/78; PULSE 103; RESP 16; TEMP 37.1; O2SAT 100
[2023-04-09 18:46] LABS: Bilirubin Negative (Negative); Blood Negative (Negative); Clarity Clear (Clear); Glucose Negative (Negative); Ketones Negative (Negative); Leukocyte Esterase Negative (Negative); Nitrite Negative (Negative)
--- NOTE | 2023-04-09 20:45 | RT.EKG_ITS ---
APPROVED REPORT Exam: Resting ECG Reason for Exam: baseline, QTc check Patient Location: E HR:74 bpm ECG Measurements Heart Rate 74 AXIS MO 122 P 64 QRSd 81 QRS 74 QT 376 T 65 QTc 418 Conclusion Sinus rhythm Normal axis no stemi
--- NOTE | 2023-04-09 20:52 | ED.GENADUL_ITS ---
HPI General Date/Time Provider Initiated Documentation: 04/09/23 17:58 . HPI Narrative: 17 year-old female presents to ED today by POV/ambulating with her mother with a chief complaint of RUQ abdominal pain, worse immediately after eating with onset noted today. Quality described as dull aching pain, no radiation to nausea/vomiting, fever, bowel changes, chest pain, shortness of breath, cough. Severity is described as moderate to severe. Palliating factors include nothing specific attempted. Provoking factors include nothing specific. Events leading up to the incident/Associated Symptoms: patients' mother concerned with possible appendicitis. Patient not anticoagulated. Related Data Home Medications Medication Instructions Recorded Confirmed ibuprofen 200 mg tablet (Ibuprofen 600 mg PO PRN PRN 08/14/18 04/09/23 IB) inhalational spacing device (Space ##2 12/17/20 03/30/23 Chamber Plus) chlorhexidine gluconate 0.12 % 15 ml mucous membrane BID #118 mL 05/24/21 04/09/23 mouthwash (Peridex) epinephrine 0.3 mg/0.3 mL 0.3 mg (0.3 mL) IM ONCE ##1 05/24/21 04/09/23 injection, auto-injector (EpiPen 2-Wellington) topiramate 25 mg tablet 25 mg PO QHS #90 tabs 03/21/22 04/09/23 topiramate 50 mg tablet 50 mg PO QAM #90 tabs 03/21/22 04/09/23 naproxen sodium 220 mg capsule 220 mg PO Q8H PRN pain #10 caps 05/22/22 04/09/23 cetirizine 10 mg tablet 10 mg PO DAILY #90 tab-caps 07/24/22 04/09/23 norethindrone (contraceptive) 0.35 0.35 mg PO DAILY #84 tabs 08/14/22 04/09/23 mg tablet Symbicort 80 mcg-4.5 mcg/actuation See Rx Instructions .Route 11/06/22 04/09/23 HFA aerosol inhaler .COMPLEX #10.2 grams (budesonide-formoterol) sertraline 100 mg tablet 100 mg PO DAILY #30 tabs 01/29/23 04/09/23 bupropion HCl 150 mg 24 hr tablet, 150 mg PO QAM #30 tabs 03/16/23 04/09/23 extended release (Wellbutrin XL) famotidine 10 mg tablet 10 mg PO BID #60 tabs 03/30/23 04/09/23 Previous Rx's Medication Instructions Recorded inhalational spacing device (Space ##2 12/17/20 Chamber Plus) chlorhexidine gluconate 0.12 % 15 ml mucous membrane BID #118 mL 05/24/21 mouthwash (Peridex) epinephrine 0.3 mg/0.3 mL 0.3 mg (0.3 mL) IM ONCE ##1 05/24/21 injection, auto-injector (EpiPen 2-Wellington) topiramate 25 mg tablet 25 mg PO QHS #90 tabs 03/21/22 topiramate 50 mg tablet 50 mg PO QAM #90 tabs 03/21/22 naproxen sodium 220 mg capsule 220 mg PO Q8H PRN pain #10 caps 05/22/22 cetirizine 10 mg tablet 10 mg PO DAILY #90 tab-caps 07/24/22 norethindrone (contraceptive) 0.35 0.35 mg PO DAILY #84 tabs 08/14/22 mg tablet Symbicort 80 mcg-4.5 mcg/actuation See Rx Instructions .Route 11/06/22 HFA aerosol inhaler .COMPLEX #10.2 grams (budesonide-formoterol) sertraline 100 mg tablet 100 mg PO DAILY #30 tabs 01/29/23 bupropion HCl 150 mg 24 hr tablet, 150 mg PO QAM #30 tabs 03/16/23 extended release (Wellbutrin XL) famotidine 10 mg tablet 10 mg PO BID #60 tabs 03/30/23 Allergies Allergy/AdvReac Type Severity Reaction Status Date / Time bee venom protein (honey bee) Allergy Severe PROBLEMS Verified 04/09/23 18:20 BREATHING/ HIVES honey Allergy Severe Skin Rash Verified 04/09/23 18:20 davis Allergy Mild Skin Rash Verified 04/09/23 18:20 cow dander Allergy Itching Verified 04/09/23 18:20 grass pollen Allergy Hives Verified 04/09/23 18:20 perfume AdvReac Mild watery Verified 04/09/23 18:20 eyes, runny nose, face gets blotchy pollen extracts AdvReac Mild watery Verified 04/09/23 18:20 eyes, runny nose, face gets blotchy cologne Allergy Mild Headache Uncoded 04/09/23 18:20 hay Allergy Mild Skin Rash Uncoded 04/09/23 18:20 Haile] Allergy Mild rash Uncoded 04/09/23 18:20 sun Allergy Mild skin Uncoded 04/09/23 18:20 blotches Halloween makeup AdvReac Skin Rash Uncoded 04/09/23 18:20 General Stated Complaint: FlankPain GARY: 3 Review of Systems All systems reviewed & are unremarkable except as noted in HPI and below Exam Narrative Exam Narrative: GENERAL APPEARANCE: Well-nourished, non-toxic, awake and alert, atraumatic, no acute distress. SKIN: Warm, pink, dry, intact, without rashes/lesions/ulcerations. HEAD: Normocephalic, atraumatic, normal hair distribution for gender/age. EYES: Pupils PERRLA, EOMs intact without nystagmus, normal conjunctiva, no exudates on lids/lashes. ENT: Nares patent, no circumoral cyanosis, no facial swelling NECK: Supple, trachea midline, painless cervical ROM. LUNGS/CHEST: Lungs CTA bilaterally- no rhonchi/rales/wheezes diffusely, non- labored respirations, normal A/P diameter, symmetrical expansion, no chest wall deformity HEART (CV/PV): Regular rate and rhythm without murmur, no peripheral edema, no JVD. ABDOMEN: Soft, non-distended, no guarding, RUQ/epigastric tenderness without Pittman's sign, no rebound tenderness, no McBurney's tenderness, mild R CVA tenderness. MSK: Normal ROM, no swelling/deformity to bilateral UEs or LEs, moving all extremities without weakness, no cyanosis, spine midline without tenderness, normal curvature. NEURO: Mental Status AAOx4 - alert to person, place, time, events No facial droop, no forehead involvement. Motor: No focal weakness - strength 5/5 in bilateral UEs and LEs, proximal and distal, symmetric. Sensory: sensation intact to light touch globally. Gait normal: patient ambulated without ataxia into ED room. PSYCH: euthymic, cooperative, pleasant, appropriate speech Course Vital Signs Vital signs: Vital Signs Temperature 37.1 C 04/09/23 18:22 Pulse 103 H 04/09/23 18:22 Respiratory Rate 16 04/09/23 18:22 Blood Pressure 144/78 H 04/09/23 18:22 Pulse Oximetry 100 04/09/23 18:22 Temperature 37.1 C 04/09/23 18:22 Temperature Source Temporal Artery Scan 04/09/23 18:22 Pulse 103 H 04/09/23 18:22 Respiratory Rate 16 04/09/23 18:22 Blood Pressure 144/78 H 04/09/23 18:22 Blood Pressure Position Sitting 04/09/23 18:22 Pulse Oximetry 100 04/09/23 18:22 Oxygen Delivery Method Room Air 04/09/23 18:22 Oxygen Flow Rate 0 04/09/23 18:22 Pain Level 8 04/09/23 18:22 Lab/Test Results Lab/Test Results: Laboratory Tests Range/Units 04/09/23 18:28 Urine Color (Yellow) Yellow Urine Clarity (Clear) Clear Urine pH (5-8) 7.0 Ur Specific [place] (1.005-1.025) 1.020 Urine Protein (Neg-Trace) mg/dL Negative Urine Ketones (Negative) mg/dL Negative Urine Blood (Negative) Negative Urine Nitrite (Negative) Negative Urine Bilirubin (Negative) Negative Urine Urobilinogen (Up to 0.2) mg/dL 2.0 H Ur Leukocyte Esterase (Negative) Negative Urine Glucose (Negative) mg/dL Negative POC- Test(urine) Negative Medical Decision Making This dictation utilizes [id number] dictation software and may contain uned ited grammatical errors. 17 y/o F presents to ED today with a chief complaint of RUQ abdominal pain, worse after eating, no fever, no intractable vomiting, no bowel changes, denies chance of . Pain has not migrated to RLQ. Patients' medical history: GERD on famotidine, anxiety, palpitations. Family and social history: noncontribuitory, mother denies known history of gall bladder problems in family. Pertinent exam findings / vital signs include ABDOMEN: Soft, non-distended, no guarding, RUQ/epigastric tenderness without Pittman's sign, no rebound tenderness, no McBurney's tenderness, mild R CVA tenderness.. Differential / pathologies of concern include cholelithiasis, GERD, renal colic, not SBO, enteritis. Diagnostic studies of: -CBC, CMP, CRP/ESR, Lactate, UA, Lipase, Upreg. -no leukocytosis -lactate neg, do not suspect sepsis, bowel ischemia, perforated viscous -lipase & LFTs wnl do not suspect gallstone pancreatitis or cholangiitis Interventions of: -IVF, APAP/NSAID, Zofran. ED Course/Assessment/Plan: 17-year-old female presents with right upper quadrant/epigastric abdominal pain, has significant heartburn and indigestion issues, her symptoms improved with IV Tylenol and Toradol completely as well as Zofran. Her labs are reassuring for no cholangitis or obstructive biliary or renal pathology, no proteinuria to suggest kidney stone. Counseled the patient's mother that this is not likely appendicitis at this time with no elevated markers of infection, I recommend that they follow-up with an outpatient ultrasound to try and arranged for them to schedule in the next few days of the right abdominal right upper quadrant as well as renal system, I counseled him to talk to their primary care provider about possible change from famotidine to omeprazole for worsening GERD. Findings not consistent with gallstone pancreatitis, cholangitis, appendicitis, perforated viscous, SBO, ectopic- history consistent with gastritis in known GERD. Disposition of Abdominal pain of Unknown etiology. Patient verbalized understanding of the plan and return to ED criteria and engaged in shared decision making. Medical Records Medical records reviewed: Yes I reviewed the patient's medical records. Lab Data Lab results reviewed: Yes I reviewed the patient's lab results. Lab results narrative: POC Urine negative Labs: Laboratory Tests Range/Units 04/09/23 04/09/23 18:28 21:10 WBC (4.4-10.8) 10^3/uL 8.32 RBC (3.93-5.22) 10^6/uL 4.07 Hgb (11.2-15.7) g/dL 12.7 Hct (36.0-46.0) % 36.9 MCV (80-95) fL 91 MCH (27.0-33.0) pg 31.2 MCHC (32.0-36.0) % 34.4 RDW (11.7-14.6) % 12.2 Plt Count (130-400) 10^3/uL 261 MPV (8.0-11.0) fL 9.4 Immature Gran % 0.2 Neutrophils % 63.3 Lymphocytes % 29.6 Monocytes % 5.8 Eosinophils % 0.6 Basophils % 0.5 Nucleated RBC % (0.0-0.3) % 0.0 Absolute Neutrophils (1.2-6.7) 10^3/uL 5.27 Absolute Lymphocytes (1.2-3.4) 10^3/uL 2.46 Absolute Monocytes (0.1-0.8) 10^3/uL 0.48 Absolute Eosinophils (0.0-0.7) 10^3/uL 0.05 Absolute Basophils (0.0-0.2) 10^3/uL 0.04 ESR (0-20) mm/hr 2 VBG Lactate (0.6-1.4) mmol/L 0.7 Magnesium (1.8-2.4) mg/dL 2.1 Total Bilirubin (0.2-1.0) mg/dL 0.5 Conjugated Bilirubin (0.0-0.2) mg/dL 0.1 AST (15-37) U/L 14 L ALT (14-59) U/L 16 Alkaline Phosphatase (46-116) U/L 107 C-Reactive Protein (<or=0.5) mg/dL < 0.50 Total Protein (6.4-8.2) g/dL 7.3 Albumin (3.4-5.0) g/dL 4.2 Lipase (16-77) U/L 47 Urine Color (Yellow) Yellow Urine Clarity (Clear) Clear Urine pH (5-8) 7.0 Ur Specific [place] (1.005-1.025) 1.020 Urine Protein (Neg-Trace) mg/dL Negative Urine Ketones (Negative) mg/dL Negative Urine Blood (Negative) Negative Urine Nitrite (Negative) Negative Urine Bilirubin (Negative) Negative Urine Urobilinogen (Up to 0.2) mg/dL 2.0 H Ur Leukocyte Esterase (Negative) Negative Urine Glucose (Negative) mg/dL Negative Quality:SDOH Health Related Social Needs: No Data to Display PFSH All Active Problems (Updated 04/09/23 @ 22:09 by AMANDA De Leon) Abdominal pain of unknown etiology (Acute) Heart palpitations (Acute) 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 On IEP. 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) [place] [facility] [place] Medical History (Updated 04/09/23 @ 22:09 by AMANDA De Leon) Asthma (05/24/12) 10/2013 mild intermittent School problem IEP updated 05/11/20-05/10/21: Counseling services once a week 45 min; Math intervention 4 times a week; reading intervention twice a week; updated IEP in chart as of 07/21/20 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 Father Mental disorder schizophrenia Other Mental disorder paternal femaily members Developmental delay sibs/half sibs ADHD (attention deficit hyperactivity disorder) maternal and paternal sides Social History Smoking/Tobacco Use Status: Never Smoking risk assessment performed?: Yes Alcohol Intake: never Drug use: Never Substance use type: does not use Housing: house Communication Needs: None and Corrective Lenses Education Level: high school Details: 11th grade () [place] Pets and animals: Yes (dogs, cat, ferret) Pets and animals: cat(s), dog(s) and ferret(s) Do you feel safe at home: Yes Do you feel safe in your relationship?: Yes Additional Social history: GRANDMOTHER WITH CUSTODY SINCE 2 MONTHS OF AGE- PARENTS HOMELESS AND NEGLECT Discharge Plan Disposition Patient Disposition: Home Condition: Stable Discharge Details Clinical Impression: Abdominal pain of unknown etiology Primary Care Provider: Mukesh Keating ED Provider: Mukesh Francisco Home Meds and New Rx's Prescriptions: Continued naproxen sodium 220 mg capsule 220 mg PO Q8H PRN (Reason: pain) Qty: 10 0RF famotidine 10 mg tablet 10 mg PO BID Qty: 60 4RF bupropion HCl [Wellbutrin XL] 150 mg tablet extended release 24 hr 150 mg PO QAM Qty: 30 0RF (DME) Space Chamber Plus Spacer 1 ea Miscellaneous Q4H PRN Qty: 2 0RF Rx Instructions: use with inhaler every 4 hours as needed chlorhexidine gluconate [Peridex] 0.12 % mouthwash 15 ml mucous membrane BID Qty: 118 2RF Rx Instructions: rinse mouth 30 seconds and spit out twice a day epinephrine [EpiPen 2-Wellington] 0.3 mg/0.3 mL auto-injector 0.3 mg IM ONCE Qty: 1 2RF topiramate 25 mg tablet 25 mg PO QHS Qty: 90 3RF topiramate 50 mg tablet 50 mg PO QAM Qty: 90 3RF cetirizine 10 mg tablet 10 mg PO DAILY Qty: 90 3RF norethindrone (contraceptive) 0.35 mg tablet 0.35 mg PO DAILY Qty: 84 3RF Rx Instructions: start day 1 of menstrual cycle budesonide-formoterol [Symbicort] 80-4.5 mcg/actuation HFA aerosol inhaler See Rx Instructions .ROUTE .COMPLEX Qty: 10.2 2RF Dose Instruction: INHALE 2 PUFFS BY MOUTH TWICE DAILY. MAY ALSO USE 1-2 PUFFS EVERY 4 HOURS NEEDED Rx Instructions: INHALE 2 PUFFS BY MOUTH TWICE DAILY. MAY ALSO USE 1-2 PUFFS EVERY 4 HOURS NEEDED sertraline 100 mg tablet 100 mg PO DAILY Qty: 30 2RF ibuprofen [Ibuprofen IB] 200 mg tablet 600 mg PO PRN PRN Discharge Instructions Instructions: Biliary Colic (ED), Gastritis in Children (ED) Additional Instructions: You were seen in the emergency department for your right upper quadrant/epigastric and flank tenderness, this is not consistent with appendicitis at this time your symptoms improved with IV Tylenol and IV anti- inflammatory as well as a nausea medicine. Your labs are reassuring for no gallbladder pathology, normal liver enzymes, normal pancreas enzymes, no proteinuria to suspect kidney disease, no markers of infection like appendicitis or inflammation, your exam was not consistent with appendicitis. I have ordered you an outpatient ultrasound of the biliary tree as well as renal system, please schedule this at your convenience by calling the number attached in your ultrasound order form in your discharge packet. This could be worsening gastritis with your known acid reflux disease and you may need to talk with your primary care provider about switching from famotidine to a more potent medicine for this like omeprazole. Please return to the ER for any migration of the pain to right lower quadrant, developing fever, intractable nausea or vomiting. Referrals: Mukesh Keating MD [Primary Care Provider] - Discharge Data Discharge Date/Time-TO BE ENTERED AT DEPARTURE: 04/09/23 22:36
[2023-04-09 21:00] VITALS: BP 144/78; PULSE 88; RESP 16; TEMP 37.1
[2023-04-09] MEDS: Ketorolac 15 MG/ML VIAL IVP (21:22)
[2023-04-09 21:23] LABS: Lactate 0.7 mmol/L (0.6-1.4)
[2023-04-09 21:25] LABS: ESR 2 mm/hr (0-20)
[2023-04-09 21:28] LABS: Abs Immature Grans 0.02 10^3/uL (0.0-0.06); Absolute Basophil Count 0.04 10^3/uL (0.0-0.2); Absolute Eosinophil Count 0.05 10^3/uL (0.0-0.7); Absolute Lymphocyte Count 2.46 10^3/uL (1.2-3.4); Absolute Monocyte Count 0.48 10^3/uL (0.1-0.8); Absolute Neutrophil Count 5.27 10^3/uL (1.2-6.7); Basophils % 0.5; Eosinophils % 0.6; HCT 36.9 % (36.0-46.0); HGB 12.7 g/dL (11.2-15.7); Immature Grans % 0.2; Lymphocytes % 29.6; MCH 31.2 pg (27.0-33.0); MCHC 34.4 % (32.0-36.0); MCV 91 fL (80-95); MPV 9.4 fL (8.0-11.0); Monocytes % 5.8; Neutrophils % 63.3; Platelet Count 261 10^3/uL (130-400); RBC 4.07 10^6/uL (3.93-5.22); RDW 12.2 % (11.7-14.6); RDW-SD 40.4 fL; WBC 8.32 10^3/uL (4.4-10.8)
[2023-04-09 21:39] LABS: ALT 16 U/L (14-59); AST 14 U/L (15-37); Albumin 4.2 g/dL (3.4-5.0); Alkaline Phosphatase 107 U/L (46-116); Bilirubin, Direct 0.1 mg/dL (0.0-0.2); Bilirubin, Total 0.5 mg/dL (0.2-1.0); Lipase 47 U/L (16-77); Magnesium 2.1 mg/dL (1.8-2.4); Total Protein 7.3 g/dL (6.4-8.2)
[2023-04-09 21:43] LABS: C-Reactive Protein < 0.50 mg/dL (<or=0.5)
[2023-04-09] MEDS: Famotidine 20 MG/2 ML VIAL IVP (22:17)
[2023-04-09] MEDS: Normal Saline 50 ML 200 ML (22:18)
--- NOTE | 2023-04-09 22:56 | NUR.NOTE ---
Ultrasound req faxed to DI for abd/renal study, will f/u with pcp. Patient instructed to call DI scheduling for appt. Abd ultrasound instructions given to patient.Nursing Note:
== END 2023-04-09 22:36 | disposition home or self-care (01) ==
PROVIDERS: Emergency Medicine; Emergency Provider Physician Assistant; PCP Pediatrics
DX: R10.11 Right upper quadrant pain (principal); R10.13 Epigastric pain; R11.0 Nausea
CPT/HCPCS: 36415; 80076; 83690; 85652; 93005; 96374; 96375; 99284; 81003; 83605; 83735; 85025; 86140; 93010; J1885

== ENCOUNTER → 2023-04-10 07:11 | Outpatient (CLI) | payer MEDICAID, SELFPAY ==
--- NOTE | 2023-04-10 | DI.US_ITS ---
Exam(s) US ABDOMEN RENAL EXAM: US ABDOMEN RENAL CLINICAL HISTORY: RUQ PAIN, RT CVA TTP TECHNIQUE: Ultrasound of complete upper abdomen performed using standard protocol. COMPARISON: CT CT ABDOMEN PELVIS W from 09/09/2022 US POCUS EXAM from 09/09/2022 FINDINGS: There is no ascites evident. LIVER: There are no hepatic lesions evident nor obvious dilatation of intrahepatic ducts. GALLBLADDER/BILIARY: There are no gallstones. No gallbladder wall edema nor pericholecystic fluid. The common hepatic duct isnot dilated, measuring 2-3mm at the level of kenneth hepatis. PANCREAS: There is no evidence of pancreatic mass nor dilatation of the pancreatic duct. SPLEEN: The spleen is not enlarged and there are no intrasplenic lesions evident. KIDNEYS:Kidneys exhibit normal size with no evidence of solid mass, calculus, nor hydronephrosis. No cortical cysts evident. ABDOMINAL AORTA: There is no evidence of abdominal aortic aneurysm. IVC: Normal diameter where visualized. URINARY BLADDER prevoid volume 363 cc. Postvoid volume is 0. Normal appearing urinary bladder wall. No abnormal thickening. Both ureterovesical jets were identified. IMPRESSION: 1. No evidence of cholelithiasis nor dilatation of the biliary tree. 2. No other significant ultrasound findings in the upper abdomen. 3. No significant findings in the kidneys and urinary bladder DATA REPOSITORY:
== END ==
PROVIDERS: PCP Pediatrics; Visit Provider Physician Assistant
DX: R10.11 Right upper quadrant pain (principal)
CPT/HCPCS: 76770; 76700

== ENCOUNTER 2023-04-30 19:08 | Emergency (ER) | payer MEDICAID, SELFPAY ==
[2023-04-30 19:12] VITALS: BP 131/88; PULSE 117; RESP 18; TEMP 37.5; O2SAT 100
--- NOTE | 2023-04-30 19:28 | W.ED.GENAD ---
Discharge Plan Disposition Patient Disposition: Home Condition: Stable Discharge Details Clinical Impression: Viral syndrome Primary Care Provider: Mukesh Keating ED Provider: Mukesh Francisco Home Meds and New Rx's Prescriptions: Continued naproxen sodium 220 mg capsule 220 mg PO Q8H PRN (Reason: pain) Qty: 10 0RF famotidine 10 mg tablet 10 mg PO BID Qty: 60 4RF clotrimazole 1 % cream 1 applic topical TID Qty: 45 1RF (DME) Space Chamber Plus Spacer 1 ea Miscellaneous Q4H PRN Qty: 2 0RF Rx Instructions: use with inhaler every 4 hours as needed chlorhexidine gluconate [Peridex] 0.12 % mouthwash 15 ml mucous membrane BID Qty: 118 2RF Rx Instructions: rinse mouth 30 seconds and spit out twice a day epinephrine [EpiPen 2-Wellington] 0.3 mg/0.3 mL auto-injector 0.3 mg IM ONCE Qty: 1 2RF cetirizine 10 mg tablet 10 mg PO DAILY Qty: 90 3RF norethindrone (contraceptive) 0.35 mg tablet 0.35 mg PO DAILY Qty: 84 3RF Rx Instructions: start day 1 of menstrual cycle budesonide-formoterol [Symbicort] 80-4.5 mcg/actuation HFA aerosol inhaler See Rx Instructions .ROUTE .COMPLEX Qty: 10.2 2RF Dose Instruction: INHALE 2 PUFFS BY MOUTH TWICE DAILY. MAY ALSO USE 1-2 PUFFS EVERY 4 HOURS NEEDED Rx Instructions: INHALE 2 PUFFS BY MOUTH TWICE DAILY. MAY ALSO USE 1-2 PUFFS EVERY 4 HOURS NEEDED sertraline 100 mg tablet 100 mg PO DAILY Qty: 30 2RF bupropion HCl [Wellbutrin XL] 150 mg tablet extended release 24 hr 150 mg PO QAM Qty: 30 2RF topiramate 25 mg tablet 25 mg PO BID Qty: 180 1RF Rx Instructions: Please place in 2 separate bottles if possible (1 for AM dose, 1 for PM dose). Thank you ibuprofen [Ibuprofen IB] 200 mg tablet 600 mg PO PRN PRN Discharge Instructions Instructions: Viral Syndrome (ED) Additional Instructions: You were seen in the emergency department for your acute viral syndrome, have a constellation of complaints across multiple body systems indicating that this is likely the onset of a common cold virus. Please use therapeutic dosing of Tylenol (acetamenophen) & Advil (ibuprofen) in an alternating fashion as follows: Take 1000mg of Tylenol every 6 hours without missing doses- that is 4 times per day. [place] in between the Tylenol dosings, take 400-600mg of Advil also on a 6 hour schedule, that is also 4 times per day. The daily maximum dosing of Tylenol is 4000mg, and the daily maximum dosing of Advil is 2400mg. This is safe to do for weeks. Please note that some common cold medications & prescription pain medications may contain acetamenophen and you need to read OTC drug labels and factor that in to maximum daily dosings. Your COVID and flu and RSV swab was negative, your rapid strep was negative as well, your throat swab was sent for culture for more accurate result. Your headache improved with simple migraine medications. Please take any cough medicine [id number] for symptomatic treatment as directed by customer response representative's labeling, return to the ED for any neurological changes, high fever not responding to Tylenol and ibuprofen, intractable nausea and vomiting, profound weakness. Referrals: Mukesh Keating MD [Primary Care Provider] - HPI General Date/Time Provider Initiated Documentation: 04/30/23 19:27. HPI Narrative: 17 year-old female presents to ED today by POV/ambulating with a chief complaint of headache, sore throat, cough, ear pain with onset this morning. Quality described as headache being the most focal complaint and what brought her here, no radiation to visual changes, vertigo, vomiting, constipation, diarrhea, shortness of breath. Severity is described as moderate. Palliating factors include nothing specific. Provoking factors include nothing specific. Patient not anticoagulated. Related Data Home Medications Medication Instructions Recorded Confirmed ibuprofen 200 mg tablet (Ibuprofen 600 mg PO PRN PRN 08/14/18 04/18/23 IB) inhalational spacing device (Space ##2 12/17/20 04/18/23 Chamber Plus) chlorhexidine gluconate 0.12 % 15 ml mucous membrane BID #118 mL 05/24/21 04/18/23 mouthwash (Peridex) epinephrine 0.3 mg/0.3 mL 0.3 mg (0.3 mL) IM ONCE ##1 05/24/21 04/18/23 injection, auto-injector (EpiPen 2-Wellington) naproxen sodium 220 mg capsule 220 mg PO Q8H PRN pain #10 caps 05/22/22 04/18/23 cetirizine 10 mg tablet 10 mg PO DAILY #90 tab-caps 07/24/22 04/18/23 norethindrone (contraceptive) 0.35 0.35 mg PO DAILY #84 tabs 08/14/22 04/18/23 mg tablet Symbicort 80 mcg-4.5 mcg/actuation See Rx Instructions .Route 11/06/22 04/18/23 HFA aerosol inhaler .COMPLEX #10.2 grams (budesonide-formoterol) sertraline 100 mg tablet 100 mg PO DAILY #30 tabs 01/29/23 04/18/23 famotidine 10 mg tablet 10 mg PO BID #60 tabs 03/30/23 04/18/23 bupropion HCl 150 mg 24 hr tablet, 150 mg PO QAM #30 tabs 04/12/23 04/18/23 extended release (Wellbutrin XL) clotrimazole 1 % topical cream 1 applic topical TID #45 grams 04/18/23 04/18/23 topiramate 25 mg tablet 25 mg PO BID #180 tabs 04/18/23 04/18/23 Previous Rx's Medication Instructions Recorded inhalational spacing device (Space ##2 12/17/20 Chamber Plus) chlorhexidine gluconate 0.12 % 15 ml mucous membrane BID #118 mL 05/24/21 mouthwash (Peridex) epinephrine 0.3 mg/0.3 mL 0.3 mg (0.3 mL) IM ONCE ##1 05/24/21 injection, auto-injector (EpiPen 2-Wellington) naproxen sodium 220 mg capsule 220 mg PO Q8H PRN pain #10 caps 05/22/22 cetirizine 10 mg tablet 10 mg PO DAILY #90 tab-caps 07/24/22 norethindrone (contraceptive) 0.35 0.35 mg PO DAILY #84 tabs 08/14/22 mg tablet Symbicort 80 mcg-4.5 mcg/actuation See Rx Instructions .Route 11/06/22 HFA aerosol inhaler .COMPLEX #10.2 grams (budesonide-formoterol) sertraline 100 mg tablet 100 mg PO DAILY #30 tabs 01/29/23 famotidine 10 mg tablet 10 mg PO BID #60 tabs 03/30/23 bupropion HCl 150 mg 24 hr tablet, 150 mg PO QAM #30 tabs 04/12/23 extended release (Wellbutrin XL) clotrimazole 1 % topical cream 1 applic topical TID #45 grams 04/18/23 topiramate 25 mg tablet 25 mg PO BID #180 tabs 04/18/23 Allergies Allergy/AdvReac Type Severity Reaction Status Date / Time bee venom protein (honey bee) Allergy Severe PROBLEMS Verified 04/18/23 11:30 BREATHING/ HIVES honey Allergy Severe Skin Rash Verified 04/18/23 11:30 davis Allergy Mild Skin Rash Verified 04/18/23 11:30 cow dander Allergy Itching Verified 04/18/23 11:30 grass pollen Allergy Hives Verified 04/18/23 11:30 perfume AdvReac Mild watery Verified 04/18/23 11:30 eyes, runny nose, face gets blotchy pollen extracts AdvReac Mild watery Verified 04/18/23 11:30 eyes, runny nose, face gets blotchy cologne Allergy Mild Headache Uncoded 04/18/23 11:30 hay Allergy Mild Skin Rash Uncoded 04/18/23 11:30 Haile] Allergy Mild rash Uncoded 04/18/23 11:30 sun Allergy Mild skin Uncoded 04/18/23 11:30 blotches Halloween makeup AdvReac Skin Rash Uncoded 04/18/23 11:30 General Stated Complaint: Sorethroat GARY: 4 Review of Systems All systems reviewed & are unremarkable except as noted in HPI and below Exam Narrative Exam Narrative: GENERAL APPEARANCE: Well-nourished, non-toxic, awake and alert, atraumatic, no acute distress. SKIN: Warm, pink, dry, intact, without rashes/lesions/ulcerations. HEAD: Normocephalic, atraumatic, normal hair distribution for gender/age. EYES: Pupils PERRLA, EOMs intact without nystagmus, normal conjunctiva, no exudates on lids/lashes. ENT: Nares patent, no circumoral cyanosis, no facial swelling NECK: Supple, trachea midline, painless cervical ROM. LUNGS/CHEST: Lungs CTA bilaterally- no rhonchi/rales/wheezes diffusely, non-labored respirations, normal A/P diameter, symmetrical expansion, no chest wall deformity HEART (CV/PV): Regular rate and rhythm without murmur, no peripheral edema, no JVD. ABDOMEN: Soft, non-distended, no guarding. MSK: Normal ROM, no swelling/deformity to bilateral UEs or LEs, moving all extremities without weakness, no cyanosis, spine midline without tenderness, normal curvature. NEURO: Mental Status AAOx4 - alert to person, place, time, events No facial droop, no forehead involvement. Motor: No focal weakness - strength 5/5 in bilateral UEs and LEs, proximal and distal, symmetric. Sensory: sensation intact to light touch globally. Gait normal: patient ambulated without ataxia into ED room. PSYCH: euthymic, cooperative, pleasant, appropriate speech Course Vital Signs Vital signs: Vital Signs Temperature 37.5 C 04/30/23 19:12 Pulse 117 H 04/30/23 19:12 Respiratory Rate 18 04/30/23 19:12 Blood Pressure 131/88 04/30/23 19:12 Pulse Oximetry 100 04/30/23 19:12 Temperature 37.5 C 04/30/23 19:12 Temperature Source Tympanic 04/30/23 19:12 Pulse 117 H 04/30/23 19:12 Respiratory Rate 18 04/30/23 19:12 Blood Pressure 131/88 04/30/23 19:12 Blood Pressure Position Sitting 04/30/23 19:12 Pulse Oximetry 100 04/30/23 19:12 Oxygen Delivery Method Room Air 04/30/23 19:12 Oxygen Flow Rate 0 04/30/23 19:12 Pain Level 8 04/30/23 19:12 Medical Decision Making This dictation utilizes [id number] dictation software and may contain unedited grammatical errors. 17 y/o F presents to ED today with a chief complaint of headache, sore throat, mild cough, shortness of breath- onset this morning, took Tylenol this afternoon. Patient denies chest pain, vertigo, has not vomiting and is tolerating p.o. intake is otherwise healthy. Patients' medical history: Asthma, GERD. Family and social history: Noncontributory. Pertinent exam findings / vital signs include mildly tachycardic but patient likely has early onset of viral syndrome, do not suspect any cardiac etiology, neuro intact, lungs CTA, appears mildly dehydrated-pale. Differential / pathologies of concern include dehydration, viral syndrome, URI, sinusitis, migraine syndrome. Diagnostic studies of: -Rapid Strep, Covid/Flu/RSV PCR - all negative. Interventions of: -1L IVF NS, IV Toradol, Reglan, Benadryl - relief of headache. ED Course/Assessment/Plan: Counseled the patient and her father that she likely has a viral syndrome and that empiric antibiotics are not warranted on day 1 of illness, she appears well and is otherwise a 17-year-old healthy young female. She only took 1 dose of Tylenol before presenting to ED, I recommend therapeutic dosing of Tylenol and ibuprofen and erzg-jcf-herneln cold medicines, with strict return criteria for any failure to improve. Findings not consistent with toxic illness, respiratory distress, neurologic abnormality. Disposition of viral syndrome. Patient verbalized understanding of the plan and return to ED criteria and engaged in shared decision making. Medical Records Medical records reviewed: Yes I reviewed the patient's medical records. Lab Data Lab results reviewed: Yes I reviewed the patient's lab results. 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 On IEP. 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) [place] [facility] [place] Medical History (Updated 04/30/23 @ 20:27 by AMANDA De Leon) Asthma (05/24/12) 10/2013 mild intermittent School problem IEP updated 05/11/20-05/10/21: Counseling services once a week 45 min; Math intervention 4 times a week; reading intervention twice a week; updated IEP in chart as of 07/21/20 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 Social History Smoking/Tobacco Use Status: Never Smoking risk assessment performed?: Yes Alcohol Intake: never Drug use: Never Substance use type: does not use Housing: house Communication Needs: None and Corrective Lenses Education Level: high school Details: 11th grade () [employer] Pets and animals: Yes (dogs, cat, ferret) Pets and animals: cat(s), dog(s) and ferret(s) Do you feel safe at home: Yes Do you feel safe in your relationship?: Yes Additional Social history: GRANDMOTHER WITH CUSTODY SINCE 2 MONTHS OF AGE- PARENTS HOMELESS AND NEGLECT
[2023-04-30] MEDS: diphenhydrAMINE 50 MG/ML VIAL 25 MG IVP (20:08)
[2023-04-30] MEDS: Ketorolac 15 MG/ML VIAL IVP (20:09)
[2023-04-30] MEDS: Metoclopramide 10 MG/2 ML VIAL IVP (20:09)
[2023-04-30] MEDS: Normal Saline 1,000 ML 1000 ML IV (20:09)
[2023-04-30 20:18] LABS: COVID-19 PCR Negative (Negative); Influenza A PCR Negative (Negative); Influenza B PCR Negative (Negative); RSV PCR Negative (Negative)
[2023-04-30 20:20] LABS: Source Nasopharynx
[2023-04-30 20:48] VITALS: BP 101/62; PULSE 102; RESP 18; TEMP 37.2; O2SAT 99
== END 2023-04-30 20:53 | disposition home or self-care (01) ==
PROVIDERS: Emergency Provider Physician Assistant; PCP Pediatrics
DX: R51.9 Headache, unspecified (principal); J02.9 Acute pharyngitis, unspecified; B34.9 Viral infection, unspecified; R05.9 Cough, unspecified; J45.909 Unspecified asthma, uncomplicated; Z79.899 Other long term (current) drug therapy; K21.9 Gastro-esophageal reflux disease without esophagitis
CPT/HCPCS: 87637; 87880; 96361; 96374; 96375; 99284; 99283; J1200; J1885; J2765

== ENCOUNTER 2023-05-02 13:04 | Outpatient (REF) | payer MEDICAID, SELFPAY | END 2023-05-02 13:05 | disposition home or self-care (01) | LOC: LBO 13:04 | PROVIDERS: PCP Pediatrics; Referring Provider Pediatrics; Visit Provider Pediatrics | DX: J02.9 Acute pharyngitis, unspecified (principal) | CPT/HCPCS: 87070 ==

== ENCOUNTER 2023-05-10 10:57 | Outpatient (RCR) | payer MEDICAID, SELFPAY ==
--- NOTE | 2023-05-10 11:00 | HOLTER_ITS ---
APPROVED REPORT Conclusion This is a 48-hour Holter monitor Rhythm throughout was sinus with an average heart of 82. Minimum 45, maximum 153 There was 1 premature ventricular contraction There were 23 atrial premature beats There was no atrial fibrillation, no SVT, no high-grade AV block, no pauses greater than 3 seconds Symptoms were reported which correlated to sinus rhythm and sinus tachycardia
== END 2023-05-20 23:59 | disposition home or self-care (01) ==
LOC: CARDOPNVT 10:57
PROVIDERS: PCP Pediatrics; Visit Provider Internal Medicine Cardiovascular Disease
DX: R00.2 Palpitations (principal); R00.0 Tachycardia, unspecified
CPT/HCPCS: 93225; 93226

== ENCOUNTER 2023-06-02 09:16 | Emergency (ER) | payer MEDICAID, SELFPAY ==
[2023-06-02 09:23] VITALS: BP 131/67; PULSE 123; RESP 14; TEMP 37.2; O2SAT 98
[2023-06-02 09:43] LABS: Bilirubin Moderate (Negative); Blood Large (Negative); Clarity Cloudy (Clear); Glucose Negative (Negative); Ketones >=160 mg/dL (Negative); Leukocyte Esterase Trace (Negative); Nitrite Negative (Negative); Specific Gravity >= 1.030 (1.005-1.025); pH 5.5 (5-8)
[2023-06-02 10:02] LABS: Bacteria Few HPF (Negative); C & S Indicated? No/Sq. Contamination; Casts Negative LPF (Negative); Crystals Negative HPF (Negative); Epithelial Cells Many HPF (Negative); Mucus Negative (Negative); RBC >50 HPF (0-2)
[2023-06-02 10:13] VITALS: BP 131/67; PULSE 105; RESP 14; TEMP 37.2; O2SAT 98
--- NOTE | 2023-06-02 10:23 | ED.GENADUL_ITS ---
Discharge Plan Disposition Patient Disposition: Home Condition: Stable Discharge Details Clinical Impression: UTI (urinary tract infection) Primary Care Provider: Mukesh Keating ED Provider: Kylie Lindsay Home Meds and New Rx's Prescriptions: New cephalexin 500 mg tablet 500 mg PO BID 7 Days Qty: 14 0RF phenazopyridine [Pyridium] 100 mg tablet 100 mg PO TID PRNQty: 6 0RF No Action naproxen sodium 220 mg capsule 220 mg PO Q8H PRN (Reason: pain) Qty: 10 0RF famotidine 10 mg tablet 10 mg PO BID Qty: 60 4RF clotrimazole 1 % cream 1 applic topical TID Qty: 45 1RF hydroxyzine HCl 25 mg tablet 25 mg PO Q8H PRN PRN (Reason: panic feeling) Qty: 10 0RF (DME) Space Chamber Plus Spacer 1 ea Miscellaneous Q4H PRN Qty: 2 0RF Rx Instructions: use with inhaler every 4 hours as needed chlorhexidine gluconate [Peridex] 0.12 % mouthwash 15 ml mucous membrane BID Qty: 118 2RF Rx Instructions: rinse mouth 30 seconds and spit out twice a day epinephrine [EpiPen 2-Wellington] 0.3 mg/0.3 mL auto-injector 0.3 mg IM ONCE Qty: 1 2RF cetirizine 10 mg tablet 10 mg PO DAILY Qty: 90 3RF norethindrone (contraceptive) 0.35 mg tablet 0.35 mg PO DAILY Qty: 84 3RF Rx Instructions: start day 1 of menstrual cycle budesonide-formoterol [Symbicort] 80-4.5 mcg/actuation HFA aerosol inhaler See Rx Instructions .ROUTE .COMPLEX Qty: 10.2 2RF Dose Instruction: INHALE 2 PUFFS BY MOUTH TWICE DAILY. MAY ALSO USE 1-2 PUFFS EVERY 4 HOURS NEEDED Rx Instructions: INHALE 2 PUFFS BY MOUTH TWICE DAILY. MAY ALSO USE 1-2 PUFFS EVERY 4 HOURS NEEDED bupropion HCl [Wellbutrin XL] 150 mg tablet extended release 24 hr 150 mg PO QAM Qty: 30 2RF topiramate 25 mg tablet 25 mg PO BID Qty: 180 1RF Rx Instructions: Please place in 2 separate bottles if possible (1 for AM dose, 1 for PM dose). Thank you sertraline 100 mg tablet 100 mg PO DAILY Qty: 30 2RF ibuprofen [Ibuprofen IB] 200 mg tablet 600 mg PO PRN PRN Discharge Instructions Instructions: Urinary Tract Infection in Women (ED) Additional Instructions: Take the antibiotics twice daily with yogurt or probiotic as directed. Take the Pyridium as prescribed, will turn your urine bright orange and may stain your close so just be aware of this. Follow up with primary care provider in 3-5 days. Return to ED sooner if any worsening or concerns. Please take Tylenol or Ibuprofen with food every 4-6 hours as needed for pain and swelling. Increase oral fluids Referrals: Mukesh Keating MD [Primary Care Provider] - 5 days HPI General Mode of arrival: ambulatory . Date/Time Provider Initiated Documentation: 06/02/23 09:21 . Limitations to Documentation: no limitations . Information obtained by: patient, RN notes reviewed and old records reviewed . HPI Narrative: 17 year old female presents with hematuria, urinary frequency and burning which began yesterday. Denies abd pain, back pain, N/V/D. No other associated symptoms or patient concerns reported. 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 Related Data Home Medications Medication Instructions Recorded Confirmed ibuprofen 200 mg tablet (Ibuprofen 600 mg PO PRN PRN 08/14/18 05/18/23 IB) inhalational spacing device (Space ##2 12/17/20 05/18/23 Chamber Plus) chlorhexidine gluconate 0.12 % 15 ml mucous membrane BID #118 mL 05/24/21 05/18/23 mouthwash (Peridex) epinephrine 0.3 mg/0.3 mL 0.3 mg (0.3 mL) IM ONCE ##1 05/24/21 05/18/23 injection, auto-injector (EpiPen 2-Wellington) naproxen sodium 220 mg capsule 220 mg PO Q8H PRN pain #10 caps 05/22/22 05/18/23 cetirizine 10 mg tablet 10 mg PO DAILY #90 tab-caps 07/24/22 05/18/23 norethindrone (contraceptive) 0.35 0.35 mg PO DAILY #84 tabs 08/14/22 05/18/23 mg tablet Symbicort 80 mcg-4.5 mcg/actuation See Rx Instructions .Route 11/06/22 05/18/23 HFA aerosol inhaler .COMPLEX #10.2 grams (budesonide-formoterol) famotidine 10 mg tablet 10 mg PO BID #60 tabs 03/30/23 05/18/23 bupropion HCl 150 mg 24 hr tablet, 150 mg PO QAM #30 tabs 04/12/23 05/18/23 extended release (Wellbutrin XL) clotrimazole 1 % topical cream 1 applic topical TID #45 grams 04/18/23 05/18/23 topiramate 25 mg tablet 25 mg PO BID #180 tabs 04/18/23 05/18/23 sertraline 100 mg tablet 100 mg PO DAILY #30 tabs 05/01/23 05/18/23 hydroxyzine HCl 25 mg tablet 25 mg PO Q8H PRN PRN panic feeling 05/02/23 05/02/23 #10 tabs cephalexin 500 mg tablet 500 mg PO BID 7 days #14 tabs 06/02/23 phenazopyridine 100 mg tablet 100 mg PO TID PRN 6 doses #6 tabs 06/02/23 (Pyridium) Previous Rx's Medication Instructions Recorded inhalational spacing device (Space ##2 12/17/20 Chamber Plus) chlorhexidine gluconate 0.12 % 15 ml mucous membrane BID #118 mL 05/24/21 mouthwash (Peridex) epinephrine 0.3 mg/0.3 mL 0.3 mg (0.3 mL) IM ONCE ##1 05/24/21 injection, auto-injector (EpiPen 2-Wellington) naproxen sodium 220 mg capsule 220 mg PO Q8H PRN pain #10 caps 05/22/22 cetirizine 10 mg tablet 10 mg PO DAILY #90 tab-caps 07/24/22 norethindrone (contraceptive) 0.35 0.35 mg PO DAILY #84 tabs 08/14/22 mg tablet Symbicort 80 mcg-4.5 mcg/actuation See Rx Instructions .Route 11/06/22 HFA aerosol inhaler .COMPLEX #10.2 grams (budesonide-formoterol) famotidine 10 mg tablet 10 mg PO BID #60 tabs 03/30/23 bupropion HCl 150 mg 24 hr tablet, 150 mg PO QAM #30 tabs 04/12/23 extended release (Wellbutrin XL) clotrimazole 1 % topical cream 1 applic topical TID #45 grams 04/18/23 topiramate 25 mg tablet 25 mg PO BID #180 tabs 04/18/23 sertraline 100 mg tablet 100 mg PO DAILY #30 tabs 05/01/23 hydroxyzine HCl 25 mg tablet 25 mg PO Q8H PRN PRN panic feeling 05/02/23 #10 tabs cephalexin 500 mg tablet 500 mg PO BID 7 days #14 tabs 06/02/23 phenazopyridine 100 mg tablet 100 mg PO TID PRN 6 doses #6 tabs 06/02/23 (Pyridium) Allergies Allergy/AdvReac Type Severity Reaction Status Date / Time bee venom protein (honey bee) Allergy Severe PROBLEMS Verified 05/29/23 10:53 BREATHING/ HIVES honey Allergy Severe Skin Rash Verified 05/29/23 10:53 davis Allergy Mild Skin Rash Verified 05/29/23 10:53 cow dander Allergy Itching Verified 05/29/23 10:53 grass pollen Allergy Hives Verified 05/29/23 10:53 perfume AdvReac Mild watery Verified 05/29/23 10:53 eyes, runny nose, face gets blotchy pollen extracts AdvReac Mild watery Verified 05/29/23 10:53 eyes, runny nose, face gets blotchy cologne Allergy Mild Headache Uncoded 05/29/23 10:53 hay Allergy Mild Skin Rash Uncoded 05/29/23 10:53 Haile] Allergy Mild rash Uncoded 05/29/23 10:53 sun Allergy Mild skin Uncoded 05/29/23 10:53 blotches Halloween makeup AdvReac Skin Rash Uncoded 05/29/23 10:53 General Stated Complaint: Urinary GARY: 4 Review of Systems All systems reviewed & are unremarkable except as noted in HPI and below Constitutional Constitutional: Denies chills and Denies fever(s) Gastrointestinal Gastrointestinal: Denies abdominal pain Genitourinary Genitourinary: Reports as per HPI, Reports hematuria, Reports dysuria and Reports urinary urgency Exam Narrative Exam Narrative: Constitutional: Alert and oriented x3. Appears stated age. Normal body habitus. Head: Normocephalic, no trauma. Eyes: Pupils PERRL, Red reflex noted, EOM's intact. Eyelids symmetrical without lesions, discharge, or swelling. ENT: Bilateral TM's WNL, External ear normal to inspection, no mastoid TTP, swelling, or erythema, Nasal turbinates WNL, no nasal discharge. Normal dentition, Posterior pharynx WNL, no exudate. Chest: RRR, Normal S1, S2, distal pulses intact. Resp: Lungs clear to auscultation bilaterally, no wheezes, rales, or rhonchi. Abdomen: Soft, non-distended, Normoactive bowel sounds all 4 quads. Musculoskeletal: Normal gait, Skin: No suspicious rashes or lesions. Capillary refill less than 2 sec. Neurologic: Cranial nerves II-XII intact. Alert and oriented x 3. Motor: No deficits noted. Sensory: Intact bilaterally all 4 extremities. Hematologic/Lymphatic: No ecchymosis, no lymphadenopathy. Course Vital Signs Vital signs: Vital Signs Temperature 37.2 C 06/02/23 09:23 Pulse 123 H 06/02/23 09:23 Respiratory Rate 14 06/02/23 09:23 Blood Pressure 131/67 06/02/23 09:23 Pulse Oximetry 98 06/02/23 09:23 Temperature 37.2 C 06/02/23 10:13 Temperature Source Skin 06/02/23 09:23 Pulse 105 H 06/02/23 10:13 Respiratory Rate 14 06/02/23 10:13 Blood Pressure 131/67 06/02/23 10:13 Blood Pressure Position Sitting 06/02/23 10:13 Pulse Oximetry 98 06/02/23 10:13 Oxygen Delivery Method Room Air 06/02/23 10:13 Oxygen Flow Rate 0 06/02/23 09:23 Pain Level 0 06/02/23 10:13 Lab/Test Results Lab/Test Results: Laboratory Tests Range/Units 06/02/23 09:27 Urine Color (Yellow) Yellow Urine Clarity (Clear) Cloudy Urine pH (5-8) 5.5 Ur Specific [place] (1.005-1.025) >= 1.030 H Urine Protein (Neg-Trace) mg/dL 100 H Urine Ketones (Negative) mg/dL >=160 H Urine Blood (Negative) Large H Urine Nitrite (Negative) Negative Urine Bilirubin (Negative) Moderate H Urine Urobilinogen (Up to 0.2) mg/dL 1.0 H Ur Leukocyte Esterase (Negative) Trace H Urine RBC (0-2) HPF >50 H Urine WBC (0-5) HPF 10-20 H Ur Epithelial Cells (Negative) HPF Many Urine Crystals (Negative) HPF Negative Urine Bacteria (Negative) HPF Few Urine Casts (Negative) LPF Negative Urine Mucus (Negative) Negative Ur Culture Indicated? No/Sq. Contamination Urine Glucose (Negative) mg/dL Negative POC- Test(urine) Negative Medical Decision Making 17 year old female presents with hematuria, urinary frequency and burning which began yesterday. Denies abd pain, back pain, N/V/D. No other associated symptoms or patient concerns reported. 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 Urinalysis shows 100 protein, greater than 160 ketones large blood moderate bilirubin, greater than 50 RBCs 10-20 WBCs reports squamous contamination. Many epithelial cells. However due to patient's symptoms we will go ahead and treat for UTI. Patient denies any vomiting, abdominal pain or back pain no flank pain. This text was generated using [employer]ation system, please disregard any oddities of phrase or misspellings. Lab Data Lab results reviewed: Yes I reviewed the patient's lab results. Labs: Laboratory Tests Range/Units 06/02/23 09:27 Urine Color (Yellow) Yellow Urine Clarity (Clear) Cloudy Urine pH (5-8) 5.5 Ur Specific [place] (1.005-1.025) >= 1.030 H Urine Protein (Neg-Trace) mg/dL 100 H Urine Ketones (Negative) mg/dL >=160 H Urine Blood (Negative) Large H Urine Nitrite (Negative) Negative Urine Bilirubin (Negative) Moderate H Urine Urobilinogen (Up to 0.2) mg/dL 1.0 H Ur Leukocyte Esterase (Negative) Trace H Urine RBC (0-2) HPF >50 H Urine WBC (0-5) HPF 10-20 H Ur Epithelial Cells (Negative) HPF Many Urine Crystals (Negative) HPF Negative Urine Bacteria (Negative) HPF Few Urine Casts (Negative) LPF Negative Urine Mucus (Negative) Negative Ur Culture Indicated? No/Sq. 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 On IEP. 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) diagnosed by Child Development at [facility] [place]- started concerta Medical History (Updated 06/02/23 @ 10:25 by Kylie Lindsay NP) Asthma (05/24/12) 10/2013 mild intermittent School problem IEP updated 05/11/20-05/10/21: Counseling services once a week 45 min; Math intervention 4 times a week; reading intervention twice a week; updated IEP in chart as of 07/21/20 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 Social History Smoking/Tobacco Use Status: Never Smoking risk assessment performed?: Yes Alcohol Intake: never Drug use: Never Substance use type: does not use Housing: house Communication Needs: None and Corrective Lenses Education Level: high school Details: 11th grade () [place] Pets and animals: Yes (dogs, cat, ferret) Pets and animals: cat(s), dog(s) and ferret(s) Do you feel safe at home: Yes Do you feel safe in your relationship?: Yes Additional Social history: GRANDMOTHER WITH CUSTODY SINCE 2 MONTHS OF AGE- PARENTS HOMELESS AND NEGLECT
[2023-06-02] MEDS: Phenazopyridine 100 MG TAB PO (10:28)
[2023-06-02] MEDS: Cephalexin 500 MG CAP PO (10:28)
[2023-06-02 10:43] VITALS: BP 124/64; PULSE 96; RESP 14; TEMP 37.2; O2SAT 98
== END 2023-06-02 10:45 | disposition home or self-care (01) ==
PROVIDERS: Emergency Provider Registered Nurse Emergency; PCP Pediatrics
DX: N39.0 Urinary tract infection, site not specified (principal)
CPT/HCPCS: 81025; 99283; 81003; 81015

== ENCOUNTER 2023-07-13 13:59 | Emergency (ER) | payer MEDICAID, SELFPAY ==
[2023-07-13 14:01] VITALS: BP 134/98; PULSE 115; RESP 18; TEMP 36.6; O2SAT 99
--- NOTE | 2023-07-13 14:06 | W.ED.GENAD ---
Discharge Plan Disposition Patient Disposition: Home Discharge Details Clinical Impression: Hand pain, right Primary Care Provider: Mukesh Keating ED Provider: Tobi Lorenzo Home Meds and New Rx's Prescriptions: Continued naproxen sodium 220 mg capsule 220 mg PO Q8H PRN (Reason: pain) Qty: 10 0RF famotidine 10 mg tablet 10 mg PO BID Qty: 60 4RF hydroxyzine HCl 25 mg tablet 25 mg PO Q8H PRN PRN (Reason: panic feeling) Qty: 10 0RF (DME) Space Chamber Plus Spacer 1 ea Miscellaneous Q4H PRN Qty: 2 0RF Rx Instructions: use with inhaler every 4 hours as needed chlorhexidine gluconate [Peridex] 0.12 % mouthwash 15 ml mucous membrane BID Qty: 118 2RF Rx Instructions: rinse mouth 30 seconds and spit out twice a day cetirizine 10 mg tablet 10 mg PO DAILY Qty: 90 3RF norethindrone (contraceptive) 0.35 mg tablet 0.35 mg PO DAILY Qty: 84 3RF Rx Instructions: start day 1 of menstrual cycle budesonide-formoterol [Symbicort] 80-4.5 mcg/actuation HFA aerosol inhaler See Rx Instructions .ROUTE .COMPLEX Qty: 10.2 2RF Dose Instruction: INHALE 2 PUFFS BY MOUTH TWICE DAILY. MAY ALSO USE 1-2 PUFFS EVERY 4 HOURS NEEDED Rx Instructions: INHALE 2 PUFFS BY MOUTH TWICE DAILY. MAY ALSO USE 1-2 PUFFS EVERY 4 HOURS NEEDED topiramate 25 mg tablet 25 mg PO BID Qty: 180 1RF Rx Instructions: Please place in 2 separate bottles if possible (1 for AM dose, 1 for PM dose). Thank you epinephrine [EpiPen 2-Wellington] 0.3 mg/0.3 mL auto-injector 0.3 mg IM ONCE Qty: 1 2RF ondansetron 4 mg tablet,disintegrating 4 mg PO Q8H PRN PRN (Reason: nausea and vomiting) Qty: 8 0RF bupropion HCl [Wellbutrin XL] 150 mg tablet extended release 24 hr 150 mg PO QAM Qty: 30 2RF ibuprofen [Ibuprofen IB] 200 mg tablet 600 mg PO PRN PRN Discharge Instructions Additional Instructions: You were seen in the emergency department for your right hand pain. Your x-ray showed no sign of any fractures or dislocations. As discussed please ice your hand for 20 minutes on 20 minutes off for the remainder of the day today. Please return to the emergency department if you develop any significant swelling or color changes to your right hand. Your numbness will likely resolve with time. Please follow-up as needed next week with your primary care provider. For your pain please take medications as follows: 1. Take acetaminophen (Tylenol), 500 mg tabs every 6 hours [2. Take ibuprofen (Advil), 400 mg every 6 hours.] Discharge Data Discharge Date/Time-TO BE ENTERED AT DEPARTURE: 07/13/23 15:12 HPI General Date/Time Provider Initiated Documentation: 07/13/23 14:06. HPI Narrative: MDM This is an overall very well-appearing tachycardic but normothermic 17-year-old lyczs-pmbf-vhnevkif female with right hand pain concerning for contusion versus fracture and for which patient will undergo plain films. No reported attempts at self-harm so no indication for crisis evaluation. I suspect that the numbness that the patient describes is secondary to some transient neuropraxia as she has no significant signs of injury to suggest increased risk for nerve injury. No trauma to upper arm to suggest brachial plexus injury. No pain in wrist nor forearm nor elbow to suggest benefit from proximal plain films. No pain out of proportion to suggest necrotizing soft tissue infection. Right hand warm and well-perfused so I am not concerned for critical limb ischemia. No lacerations that will require closure. No fluctuance to suggest abscess. No erythema nor warmth to suggest cellulitis. Will reassess following plain films and treat with ice and oral nonnarcotic analgesia. 3 PM Plain films negative for any acute osseous abnormalities. Repeat heart rate within normal limits. I met with the patient and explained that she should ice her right hand for 20 minutes on 20 minutes off for the remainder of the day. She received oral acetaminophen and ibuprofen and I counseled her on dosing of these medications at home. I advised that she should rest her hand for the remainder of the day. I advised that if she developed any significant changes in her pain any significant increases in swelling that she should return to the emergency department. Otherwise I advised primary care follow-up as needed. She understood her return indications and was discharged with an empiric trial of spectrum to outpatient management. HPI This is a zganq-iyhw-ifcrkcsy 17-year-old female not on anticoagulants arriving to the emergency department via private vehicle in the setting of right hand pain. Patient reports that just prior to arrival she became frustrated and punched the ground with her right hand. She reports that she has a history of anger issues. She was not trying to harm herself. She has no history of surgeries to her right hand. Denies any other injuries. She has been able to move her hand but notes some numbness. She has not applied ice or taken any analgesia orally prior to arrival. Exam General: Well-appearing in no acute distress speaking in complete sentences. Head: Normocephalic, atraumatic. Eye: Extraocular eye movements intact. No conjunctival injection. No scleral icterus. Ear, nose, mouth, throat: Grossly normal inspection. Normal voice, handling secretions normally. Neck: Trachea midline. Cardiovascular: Well-perfused distal extremities. Respiratory: Nonlabored respiration. Gastrointestinal: Nondistended abdomen. Musculoskeletal: Right hand Warm well-perfused. 2+ right radial pulse. Cap refill less than 2 seconds in the right fingertips. No ecchymoses lacerations or obvious deformities to right hand. Patient has full strength and range of motion across the radial, median, ulnar nerve distributions. No significant tenderness to fingertips nor entire hand. No tenderness specifically to MCP joints. Skin: Normal for age and race, grossly normal temperature and turgor. No acute rash. Neurologic: Alert and appropriate, no apparent acute deficits. Psychiatric: Mood and manner are appropriate. Grooming and personal hygiene are appropriate. MCP knuckle pain status post punching wall concerning for Related Data Home Medications Medication Instructions Recorded Confirmed ibuprofen 200 mg tablet (Ibuprofen 600 mg PO PRN PRN 08/14/18 07/13/23 IB) inhalational spacing device (Space ##2 12/17/20 07/13/23 Chamber Plus) chlorhexidine gluconate 0.12 % 15 ml mucous membrane BID #118 mL 05/24/21 07/13/23 mouthwash (Peridex) naproxen sodium 220 mg capsule 220 mg PO Q8H PRN pain #10 caps 05/22/22 07/13/23 cetirizine 10 mg tablet 10 mg PO DAILY #90 tab-caps 07/24/22 07/13/23 norethindrone (contraceptive) 0.35 0.35 mg PO DAILY #84 tabs 08/14/22 07/13/23 mg tablet Symbicort 80 mcg-4.5 mcg/actuation See Rx Instructions .Route 11/06/22 07/13/23 HFA aerosol inhaler .COMPLEX #10.2 grams (budesonide-formoterol) famotidine 10 mg tablet 10 mg PO BID #60 tabs 03/30/23 07/13/23 topiramate 25 mg tablet 25 mg PO BID #180 tabs 04/18/23 07/13/23 hydroxyzine HCl 25 mg tablet 25 mg PO Q8H PRN PRN panic feeling 05/02/23 07/13/23 #10 tabs epinephrine 0.3 mg/0.3 mL 0.3 mg (0.3 mL) IM ONCE ##1 06/18/23 07/13/23 injection, auto-injector (EpiPen 2-Wellington) ondansetron 4 mg disintegrating 4 mg PO Q8H PRN PRN nausea and 06/18/23 07/13/23 tablet vomiting #8 tabs bupropion HCl 150 mg 24 hr tablet, 150 mg PO QAM #30 tabs 07/11/23 extended release (Wellbutrin XL) Previous Rx's Medication Instructions Recorded inhalational spacing device (Space ##2 12/17/20 Chamber Plus) chlorhexidine gluconate 0.12 % 15 ml mucous membrane BID #118 mL 05/24/21 mouthwash (Peridex) naproxen sodium 220 mg capsule 220 mg PO Q8H PRN pain #10 caps 05/22/22 cetirizine 10 mg tablet 10 mg PO DAILY #90 tab-caps 07/24/22 norethindrone (contraceptive) 0.35 0.35 mg PO DAILY #84 tabs 08/14/22 mg tablet Symbicort 80 mcg-4.5 mcg/actuation See Rx Instructions .Route 11/06/22 HFA aerosol inhaler .COMPLEX #10.2 grams (budesonide-formoterol) famotidine 10 mg tablet 10 mg PO BID #60 tabs 03/30/23 topiramate 25 mg tablet 25 mg PO BID #180 tabs 04/18/23 hydroxyzine HCl 25 mg tablet 25 mg PO Q8H PRN PRN panic feeling 05/02/23 #10 tabs epinephrine 0.3 mg/0.3 mL 0.3 mg (0.3 mL) IM ONCE ##1 06/18/23 injection, auto-injector (EpiPen 2-Wellington) ondansetron 4 mg disintegrating 4 mg PO Q8H PRN PRN nausea and 06/18/23 tablet vomiting #8 tabs bupropion HCl 150 mg 24 hr tablet, 150 mg PO QAM #30 tabs 07/11/23 extended release (Wellbutrin XL) Allergies Allergy/AdvReac Type Severity Reaction Status Date / Time bee venom protein (honey bee) Allergy Severe PROBLEMS Verified 07/13/23 14:04 BREATHING/ HIVES honey Allergy Severe Skin Rash Verified 07/13/23 14:04 davis Allergy Mild Skin Rash Verified 07/13/23 14:04 cow dander Allergy Itching Verified 07/13/23 14:04 grass pollen Allergy Hives Verified 07/13/23 14:04 perfume AdvReac Mild watery Verified 07/13/23 14:04 eyes, runny nose, face gets blotchy pollen extracts AdvReac Mild watery Verified 07/13/23 14:04 eyes, runny nose, face gets blotchy cologne Allergy Mild Headache Uncoded 07/13/23 14:04 hay Allergy Mild Skin Rash Uncoded 07/13/23 14:04 Haile] Allergy Mild rash Uncoded 07/13/23 14:04 sun Allergy Mild skin Uncoded 07/13/23 14:04 blotches shellfish Allergy Unknown Unknown Uncoded 07/13/23 14:04 Halloween makeup AdvReac Skin Rash Uncoded 07/13/23 14:04 General Stated Complaint: Orthopedic GARY: 4 Course Vital Signs Vital signs: Vital Signs Temperature 36.6 C 07/13/23 14:01 Pulse 115 H 07/13/23 14:01 Respiratory Rate 18 07/13/23 14:01 Blood Pressure 134/98 H 07/13/23 14:01 Pulse Oximetry 99 07/13/23 14:01 Temperature 36.6 C 07/13/23 14:01 Temperature Source Skin 07/13/23 14:01 Pulse 115 H 07/13/23 14:01 Respiratory Rate 18 07/13/23 14:01 Respiratory Effort Normal, Non-Labored 07/13/23 14:04 Blood Pressure 134/98 H 07/13/23 14:01 Blood Pressure Position Sitting 07/13/23 14:01 Pulse Oximetry 99 07/13/23 14:01 Oxygen Delivery Method Room Air 07/13/23 14:01 Oxygen Flow Rate 0 07/13/23 14:01 Medical Decision Making Quality:SDOH Health Related Social Needs: No Data to Display PFSH All Active Problems (Updated 07/13/23 @ 14:31 by Tobi Lorenzo MD) Hand pain, right (Acute) Breakthrough bleeding (Acute) 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 On IEP. 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) diagnosed by Child Development at [facility] [place]- started concerta Medical History Asthma (05/24/12) 10/2013 mild intermittent School problem IEP updated 05/11/20-05/10/21: Counseling services once a week 45 min; Math intervention 4 times a week; reading intervention twice a week; updated IEP in chart as of 07/21/20 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 Allergy to shellfish Social History Smoking/Tobacco Use Status: Never Smoking risk assessment performed?: Yes Alcohol Intake: never Drug use: Never Substance use type: does not use Housing: house Communication Needs: None and Corrective Lenses Education Level: high school Details: 11th grade () [place] Pets and animals: Yes (dogs, cat, ferret) Pets and animals: cat(s), dog(s) and ferret(s) Do you feel safe at home: Yes Do you feel safe in your relationship?: Yes Additional Social history: GRANDMOTHER WITH CUSTODY SINCE 2 MONTHS OF AGE- PARENTS HOMELESS AND NEGLECT
[2023-07-13] MEDS: Acetaminophen 500 MG TAB PO (14:14)
[2023-07-13] MEDS: Ibuprofen 400 MG TAB PO (14:15)
--- NOTE | 2023-07-13 14:35 | DI.RAD_ITS ---
Exam(s) XR HAND RT COMPLETE EXAM: XR HAND RT COMPLETE CLINICAL HISTORY: Right hand pain status post punching. TECHNIQUE: 2D digital imaging was performed. Three views. COMPARISON: CR,XR XR FINGER RT INDEX from 09/14/2019 FINDINGS: BONES: No acute fracture is present. No bony destructive lesion is seen. JOINTS: No dislocation present. SOFT TISSUE: Mild dorsal posterior swelling over the metacarpal heads. IMPRESSION: Unremarkable radiographs of the right hand. DATA REPOSITORY: RADIATION DOSE DELIVERED:
[2023-07-13 14:40] VITALS: PULSE 96
[2023-07-13 15:10] VITALS: BP 114/66; PULSE 94; RESP 18; O2SAT 98
== END 2023-07-13 15:12 | disposition home or self-care (01) ==
PROVIDERS: Emergency Provider Emergency Medicine; PCP Pediatrics
DX: M79.641 Pain in right hand (principal); R20.0 Anesthesia of skin; R20.2 Paresthesia of skin
CPT/HCPCS: 99283; 73130

== ENCOUNTER 2023-08-24 21:39 | Emergency (ER) | payer MEDICAID, SELFPAY ==
[2023-08-24 21:45] VITALS: BP 120/80; PULSE 110; RESP 15; TEMP 36.8; O2SAT 97
[2023-08-24 21:47] VITALS: BP 120/80; PULSE 110; RESP 15; TEMP 36.8; O2SAT 97
--- NOTE | 2023-08-24 22:28 | ED.GENADUL_ITS ---
Discharge Plan Disposition Patient Disposition: Home Condition: Good Discharge Details Clinical Impression: UTI (urinary tract infection) Primary Care Provider: Mukesh Keating ED Provider: Juanita Ramirez Home Meds and New Rx's Prescriptions: New cephalexin 500 mg tablet 500 mg PO QID Qty: 16 0RF Continued naproxen sodium 220 mg capsule 220 mg PO Q8H PRN (Reason: pain) Qty: 10 0RF famotidine 10 mg tablet 10 mg PO BID Qty: 60 4RF hydroxyzine HCl 25 mg tablet 25 mg PO Q8H PRN PRN (Reason: panic feeling) Qty: 10 0RF (DME) Space Chamber Plus Spacer 1 ea Miscellaneous Q4H PRN Qty: 2 0RF Rx Instructions: use with inhaler every 4 hours as needed chlorhexidine gluconate [Peridex] 0.12 % mouthwash 15 ml mucous membrane BID Qty: 118 2RF Rx Instructions: rinse mouth 30 seconds and spit out twice a day cetirizine 10 mg tablet 10 mg PO DAILY Qty: 90 3RF norethindrone (contraceptive) 0.35 mg tablet 0.35 mg PO DAILY Qty: 84 3RF Rx Instructions: start day 1 of menstrual cycle budesonide-formoterol [Symbicort] 80-4.5 mcg/actuation HFA aerosol inhaler See Rx Instructions .ROUTE .COMPLEX Qty: 10.2 2RF Dose Instruction: INHALE 2 PUFFS BY MOUTH TWICE DAILY. MAY ALSO USE 1-2 PUFFS EVERY 4 HOURS NEEDED Rx Instructions: INHALE 2 PUFFS BY MOUTH TWICE DAILY. MAY ALSO USE 1-2 PUFFS EVERY 4 HOURS NEEDED topiramate 25 mg tablet 25 mg PO BID Qty: 180 1RF Rx Instructions: Please place in 2 separate bottles if possible (1 for AM dose, 1 for PM dose). Thank you epinephrine [EpiPen 2-Wellington] 0.3 mg/0.3 mL auto-injector 0.3 mg IM ONCE Qty: 1 2RF ondansetron 4 mg tablet,disintegrating 4 mg PO Q8H PRN PRN (Reason: nausea and vomiting) Qty: 8 0RF bupropion HCl [Wellbutrin XL] 150 mg tablet extended release 24 hr 150 mg PO QAM Qty: 30 2RF ibuprofen [Ibuprofen IB] 200 mg tablet 600 mg PO PRN PRN Discharge Instructions Instructions: Urinary Tract Infection, Adult ED Additional Instructions: Take the antibiotic four times a day for the next 5 days. Return to the emergency department for new or worsening symptoms including fever, flank pain, or if your symptoms do not improve after 48 hours on antibiotics. Referrals: Mukesh Keating MD [Primary Care Provider] - [facility] General Mode of arrival: ambulatory . Date/Time Provider Initiated Documentation: 08/24/23 21:55 . Limitations to Documentation: no limitations . Information obtained by: patient . HPI Narrative: 17yo F presenting with urinary frequency and dysuria. No hematuria or flank pain. No fevers, rash, nasuea, vomiting, or abdominal pain. Otherwise in her usual state of health. Related Data Home Medications Medication Instructions Recorded Confirmed ibuprofen 200 mg tablet (Ibuprofen 600 mg PO PRN PRN 08/14/18 08/24/23 IB) inhalational spacing device (Space ##2 12/17/20 08/24/23 Chamber Plus) chlorhexidine gluconate 0.12 % 15 ml mucous membrane BID #118 mL 05/24/21 08/24/23 mouthwash (Peridex) naproxen sodium 220 mg capsule 220 mg PO Q8H PRN pain #10 caps 05/22/22 08/24/23 cetirizine 10 mg tablet 10 mg PO DAILY #90 tab-caps 07/24/22 08/24/23 norethindrone (contraceptive) 0.35 0.35 mg PO DAILY #84 tabs 08/14/22 08/24/23 mg tablet Symbicort 80 mcg-4.5 mcg/actuation See Rx Instructions .Route 11/06/22 08/24/23 HFA aerosol inhaler .COMPLEX #10.2 grams (budesonide-formoterol) famotidine 10 mg tablet 10 mg PO BID #60 tabs 03/30/23 08/24/23 topiramate 25 mg tablet 25 mg PO BID #180 tabs 04/18/23 08/24/23 hydroxyzine HCl 25 mg tablet 25 mg PO Q8H PRN PRN panic feeling 05/02/23 08/24/23 #10 tabs epinephrine 0.3 mg/0.3 mL 0.3 mg (0.3 mL) IM ONCE ##1 06/18/23 08/24/23 injection, auto-injector (EpiPen 2-Wellington) ondansetron 4 mg disintegrating 4 mg PO Q8H PRN PRN nausea and 06/18/23 08/24/23 tablet vomiting #8 tabs bupropion HCl 150 mg 24 hr tablet, 150 mg PO QAM #30 tabs 07/11/23 08/24/23 extended release (Wellbutrin XL) cephalexin 500 mg tablet 500 mg PO QID #16 tabs 08/24/23 Previous Rx's Medication Instructions Recorded inhalational spacing device (Space ##2 12/17/20 Chamber Plus) chlorhexidine gluconate 0.12 % 15 ml mucous membrane BID #118 mL 05/24/21 mouthwash (Peridex) naproxen sodium 220 mg capsule 220 mg PO Q8H PRN pain #10 caps 05/22/22 cetirizine 10 mg tablet 10 mg PO DAILY #90 tab-caps 07/24/22 norethindrone (contraceptive) 0.35 0.35 mg PO DAILY #84 tabs 08/14/22 mg tablet Symbicort 80 mcg-4.5 mcg/actuation See Rx Instructions .Route 11/06/22 HFA aerosol inhaler .COMPLEX #10.2 grams (budesonide-formoterol) famotidine 10 mg tablet 10 mg PO BID #60 tabs 03/30/23 topiramate 25 mg tablet 25 mg PO BID #180 tabs 04/18/23 hydroxyzine HCl 25 mg tablet 25 mg PO Q8H PRN PRN panic feeling 05/02/23 #10 tabs epinephrine 0.3 mg/0.3 mL 0.3 mg (0.3 mL) IM ONCE ##1 06/18/23 injection, auto-injector (EpiPen 2-Wellington) ondansetron 4 mg disintegrating 4 mg PO Q8H PRN PRN nausea and 06/18/23 tablet vomiting #8 tabs bupropion HCl 150 mg 24 hr tablet, 150 mg PO QAM #30 tabs 07/11/23 extended release (Wellbutrin XL) cephalexin 500 mg tablet 500 mg PO QID #16 tabs 08/24/23 Allergies Allergy/AdvReac Type Severity Reaction Status Date / Time bee venom protein (honey bee) Allergy Severe PROBLEMS Verified 08/24/23 21:49 BREATHING/ HIVES honey Allergy Severe Skin Rash Verified 08/24/23 21:49 davis Allergy Mild Skin Rash Verified 08/24/23 21:49 cow dander Allergy Itching Verified 08/24/23 21:49 grass pollen Allergy Hives Verified 08/24/23 21:49 perfume AdvReac Mild watery Verified 08/24/23 21:49 eyes, runny nose, face gets blotchy pollen extracts AdvReac Mild watery Verified 08/24/23 21:49 eyes, runny nose, face gets blotchy cologne Allergy Mild Headache Uncoded 08/24/23 21:49 hay Allergy Mild Skin Rash Uncoded 08/24/23 21:49 Haile] Allergy Mild rash Uncoded 08/24/23 21:49 sun Allergy Mild skin Uncoded 08/24/23 21:49 blotches shellfish Allergy Unknown Unknown Uncoded 08/24/23 21:49 Halloween makeup AdvReac Skin Rash Uncoded 08/24/23 21:49 General Stated Complaint: Urinary GARY: 3 Review of Systems Narrative: see HPI Exam Narrative Exam Narrative: General: Alert, well appearing, well nourished, in no acute distress. Head: Normocephalic, atraumatic Neck: Trachea midline, ?Neck supple. Cardiac: ?RRR Resp: No respiratory distress. Speaking in full sentences. . Abd: ?Soft, non-distended, nontender. : ?No suprapubic tenderness. No CVA tenderness. Extremities: ?No deformities.? No peripheral edema. Neurologic: GCS 15. ? Moves all extremities freely against gravity Course Vital Signs Vital signs: Vital Signs Temperature 36.8 C 08/24/23 21:45 Pulse 110 H 08/24/23 21:45 Respiratory Rate 15 08/24/23 21:45 Blood Pressure 120/80 08/24/23 21:45 Pulse Oximetry 97 08/24/23 21:45 Temperature 36.8 C 08/24/23 21:47 Temperature Source Tympanic 08/24/23 21:45 Pulse 110 H 08/24/23 21:47 Respiratory Rate 15 08/24/23 21:47 Respiratory Effort Normal 08/24/23 21:47 Blood Pressure 120/80 08/24/23 21:47 Blood Pressure Position Sitting 08/24/23 21:47 Pulse Oximetry 97 08/24/23 21:47 Oxygen Delivery Method Room Air 08/24/23 21:47 Oxygen Flow Rate 0 08/24/23 21:45 Pain Level 5 08/24/23 21:47 Medical Decision Making 17yo F presenting with urinary frequency and dysuria. Systemically well. No fevers or flank pain. No abdominal pain. Not overtly septic. Slightly tachcyardiac on arrival after ambulating into department, vital signs otherwise reassuring. Very well appearing on exam, no abdominal tenderness, suprapubic tenderness, or CVA tenderness. Not concerning for pyelonephritits, nephrolithiasis, or ovrain pathology/etopic/torsion. Upreg negative. UA suggestive of infection. Repeat vital signs improved to <100 with no intervention. Remains extremely well appearing. I am not concerned for sepsis at this time. Likely acute cystitis. Discharged home on 5 day course of keflex. Discharge instructions and return precautions were reviewed with patient who verbalized understanding. All questions were answered and she is in full agreement with the plan. Lab Data Lab results reviewed: Yes I reviewed the patient's lab results. Labs: 08/24/23 22:15 Urine - Reflex from Ua Urine Culture - Pending Laboratory Tests Range/Units 08/24/23 22:15 Urine Color (Yellow) Yellow Urine Clarity (Clear) Clear Urine pH (5-8) 6.0 Ur Specific [place] (1.005-1.025) 1.010 Urine Protein (Neg-Trace) mg/dL Negative Urine Ketones (Negative) mg/dL Negative Urine Blood (Negative) Negative Urine Nitrite (Negative) Positive H Urine Bilirubin (Negative) Negative Urine Urobilinogen (Up to 0.2) mg/dL 0.2 Ur Leukocyte Esterase (Negative) Trace H Urine RBC (0-2) HPF 0-2 Urine WBC (0-5) HPF 10-20 H Ur Epithelial Cells (Negative) HPF Few Urine Crystals (Negative) HPF Negative Urine Bacteria (Negative) HPF Few Urine Casts (Negative) LPF Negative Urine Mucus (Negative) Negative Ur Culture Indicated? 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 On IEP. 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) diagnosed by Child Development at [facility]- started concerta Medical History Asthma (05/24/12) 10/2013 mild intermittent School problem IEP updated 05/11/20-05/10/21: Counseling services once a week 45 min; Math intervention 4 times a week; reading intervention twice a week; updated IEP in chart as of 07/21/20 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 Allergy to shellfish Social History Smoking/Tobacco Use Status: Never Smoking risk assessment performed?: Yes Alcohol Intake: never Drug use: Never Substance use type: does not use Housing: house Communication Needs: None and Corrective Lenses Education Level: high school Details: 11th grade () [place] Pets and animals: Yes (dogs, cat, ferret) Pets and animals: cat(s), dog(s) and ferret(s) Do you feel safe at home: Yes Do you feel safe in your relationship?: Yes Additional Social history: GRANDMOTHER WITH CUSTODY SINCE 2 MONTHS OF AGE- PARENTS HOMELESS AND NEGLECT
[2023-08-24 22:45] LABS: Bilirubin Negative (Negative); Blood Negative (Negative); Clarity Clear (Clear); Glucose Negative (Negative); Ketones Negative (Negative); Leukocyte Esterase Trace (Negative); Nitrite Positive (Negative); Urobilinogen 0.2 mg/dL (Up to 0.2)
[2023-08-24 22:48] VITALS: BP 125/76; PULSE 99; RESP 14; TEMP 36.4; O2SAT 97
[2023-08-24 22:55] LABS: Bacteria Few HPF (Negative); C & S Indicated? Yes; Casts Negative LPF (Negative); Crystals Negative HPF (Negative); Epithelial Cells Few HPF (Negative); Mucus Negative (Negative); RBC 0-2 HPF (0-2)
[2023-08-24] MEDS: Cephalexin 500 MG CAP PO (23:12)
[2023-08-24] MEDS: Cephalexin 500 MG CAP, 4 CAPS/BTL PO (23:12)
[2023-08-24 23:18] VITALS: BP 134/83; PULSE 95; RESP 14; TEMP 36.9; O2SAT 98
== END 2023-08-24 23:18 | disposition home or self-care (01) ==
PROVIDERS: Physician Assistant; Emergency Provider Student in an Organized Health Care Education/Training Program; PCP Pediatrics
DX: N39.0 Urinary tract infection, site not specified
CPT/HCPCS: 81025; 99283; 81003; 81015; 87086; 99284

== ENCOUNTER 2023-09-19 14:09 | Emergency (ER) | payer MEDICAID, SELFPAY ==
[2023-09-19 14:11] VITALS: BP 140/87; PULSE 105; RESP 18; TEMP 36.6; O2SAT 99
--- NOTE | 2023-09-19 14:24 | ED.GENADUL_ITS ---
Discharge Plan Disposition Patient Disposition: Home Condition: Stable Discharge Details Clinical Impression: Erythema of finger Primary Care Provider: Mukesh Keating ED Provider: Alexander Reyez Home Meds and New Rx's Prescriptions: Continued naproxen sodium 220 mg capsule 220 mg PO Q8H PRN (Reason: pain) Qty: 10 0RF famotidine 10 mg tablet 10 mg PO BID Qty: 60 4RF hydroxyzine HCl 25 mg tablet 25 mg PO Q8H PRN PRN (Reason: panic feeling) Qty: 10 0RF (DME) Space Chamber Plus Spacer 1 ea Miscellaneous Q4H PRN Qty: 2 0RF Rx Instructions: use with inhaler every 4 hours as needed chlorhexidine gluconate [Peridex] 0.12 % mouthwash 15 ml mucous membrane BID Qty: 118 2RF Rx Instructions: rinse mouth 30 seconds and spit out twice a day cetirizine 10 mg tablet 10 mg PO DAILY Qty: 90 3RF norethindrone (contraceptive) 0.35 mg tablet 0.35 mg PO DAILY Qty: 84 3RF Rx Instructions: start day 1 of menstrual cycle budesonide-formoterol [Symbicort] 80-4.5 mcg/actuation HFA aerosol inhaler See Rx Instructions .ROUTE .COMPLEX Qty: 10.2 2RF Dose Instruction: INHALE 2 PUFFS BY MOUTH TWICE DAILY. MAY ALSO USE 1-2 PUFFS EVERY 4 HOURS NEEDED Rx Instructions: INHALE 2 PUFFS BY MOUTH TWICE DAILY. MAY ALSO USE 1-2 PUFFS EVERY 4 HOURS NEEDED topiramate 25 mg tablet 25 mg PO BID Qty: 180 1RF Rx Instructions: Please place in 2 separate bottles if possible (1 for AM dose, 1 for PM dose). Thank you epinephrine [EpiPen 2-Wellington] 0.3 mg/0.3 mL auto-injector 0.3 mg IM ONCE Qty: 1 2RF ondansetron 4 mg tablet,disintegrating 4 mg PO Q8H PRN PRN (Reason: nausea and vomiting) Qty: 8 0RF bupropion HCl [Wellbutrin XL] 150 mg tablet extended release 24 hr 150 mg PO QAM Qty: 30 2RF ibuprofen [Ibuprofen IB] 200 mg tablet 600 mg PO PRN PRN Discharge Instructions Additional Instructions: Use the bacitracin 3 times a day for 5 days or until the medication is gone If your fingers not better with the bacitracin and a week follow-up with your primary care provider If you feel more ill or have new symptoms such as high fevers or severe worsening pain return to the emergency department for reevaluation. HPI General Mode of arrival: ambulatory . Date/Time Provider Initiated Documentation: 09/19/23 14:10 . Limitations to Documentation: no limitations . Information obtained by: patient . History of Present Illness 17 year old F presents to the emergency department with the chief complaint of left ring finger redness, described as mild, and is localized to the left and upper extremity. Patient reports no radiation. Patient started experiencing this day(s) (1) and it has been constant. No relieving factors improve symptom(s), No exacerbating factors reported . Patient notes no other s ymptoms.. Related Data Home Medications ?Medication ?Instructions ?Recorded ?Confirmed ibuprofen 200 mg tablet (Ibuprofen 600 mg PO PRN PRN 08/14/18 09/19/23 IB) inhalational spacing device (Space ##2 12/17/20 09/19/23 Chamber Plus) chlorhexidine gluconate 0.12 % 15 ml mucous membrane BID #118 mL 05/24/21 09/19/23 mouthwash (Peridex) naproxen sodium 220 mg capsule 220 mg PO Q8H PRN pain #10 caps 05/22/22 09/19/23 cetirizine 10 mg tablet 10 mg PO DAILY #90 tab-caps 07/24/22 09/19/23 norethindrone (contraceptive) 0.35 0.35 mg PO DAILY #84 tabs 08/14/22 09/19/23 mg tablet Symbicort 80 mcg-4.5 mcg/actuation See Rx Instructions .Route 11/06/22 09/19/23 HFA aerosol inhaler .COMPLEX #10.2 grams (budesonide-formoterol) famotidine 10 mg tablet 10 mg PO BID #60 tabs 03/30/23 09/19/23 topiramate 25 mg tablet 25 mg PO BID #180 tabs 04/18/23 09/19/23 hydroxyzine HCl 25 mg tablet 25 mg PO Q8H PRN PRN panic feeling 05/02/23 09/19/23 #10 tabs epinephrine 0.3 mg/0.3 mL 0.3 mg (0.3 mL) IM ONCE ##1 06/18/23 09/19/23 injection, auto-injector (EpiPen 2-Wellington) ondansetron 4 mg disintegrating 4 mg PO Q8H PRN PRN nausea and 06/18/23 09/19/23 tablet vomiting #8 tabs bupropion HCl 150 mg 24 hr tablet, 150 mg PO QAM #30 tabs 07/11/23 09/19/23 extended release (Wellbutrin XL) Previous Rx's ?Medication ?Instructions ?Recorded inhalational spacing device (Space ##2 12/17/20 Chamber Plus) chlorhexidine gluconate 0.12 % 15 ml mucous membrane BID #118 mL 05/24/21 mouthwash (Peridex) naproxen sodium 220 mg capsule 220 mg PO Q8H PRN pain #10 caps 05/22/22 cetirizine 10 mg tablet 10 mg PO DAILY #90 tab-caps 07/24/22 norethindrone (contraceptive) 0.35 0.35 mg PO DAILY #84 tabs 08/14/22 mg tablet Symbicort 80 mcg-4.5 mcg/actuation See Rx Instructions .Route 11/06/22 HFA aerosol inhaler .COMPLEX #10.2 grams (budesonide-formoterol) famotidine 10 mg tablet 10 mg PO BID #60 tabs 03/30/23 topiramate 25 mg tablet 25 mg PO BID #180 tabs 04/18/23 hydroxyzine HCl 25 mg tablet 25 mg PO Q8H PRN PRN panic feeling 05/02/23 #10 tabs epinephrine 0.3 mg/0.3 mL 0.3 mg (0.3 mL) IM ONCE ##1 06/18/23 injection, auto-injector (EpiPen 2-Wellington) ondansetron 4 mg disintegrating 4 mg PO Q8H PRN PRN nausea and 06/18/23 tablet vomiting #8 tabs bupropion HCl 150 mg 24 hr tablet, 150 mg PO QAM #30 tabs 07/11/23 extended release (Wellbutrin XL) Allergies Allergy/AdvReac Type Severity Reaction Status Date / Time bee venom protein (honey bee) Allergy Severe PROBLEMS Verified 09/19/23 14:14 BREATHING/ HIVES honey Allergy Severe Skin Rash Verified 09/19/23 14:14 davis Allergy Mild Skin Rash Verified 09/19/23 14:14 cow dander Allergy Itching Verified 09/19/23 14:14 grass pollen Allergy Hives Verified 09/19/23 14:14 perfume AdvReac Mild watery Verified 09/19/23 14:14 eyes, runny nose, face gets blotchy pollen extracts AdvReac Mild watery Verified 09/19/23 14:14 eyes, runny nose, face gets blotchy cologne Allergy Mild Headache Uncoded 09/19/23 14:14 hay Allergy Mild Skin Rash Uncoded 09/19/23 14:14 Haile] Allergy Mild rash Uncoded 09/19/23 14:14 sun Allergy Mild skin Uncoded 09/19/23 14:14 blotches shellfish Allergy Unknown Unknown Uncoded 09/19/23 14:14 Halloween makeup AdvReac Skin Rash Uncoded 09/19/23 14:14 General Stated Complaint: Cellulitis GARY: 4 Review of Systems All systems reviewed & are unremarkable except as noted in HPI and below Constitutional Constitutional: Denies chills, Denies fever(s) and Denies weakness Cardiovascular Cardiovascular: Denies chest pain and Denies dyspnea Respiratory Respiratory: Denies cough and Denies dyspnea Gastrointestinal Gastrointestinal: Denies abdominal pain, Denies nausea and Denies vomiting Integumentary/Breasts Skin/Breast: Reports rash Neurologic Neurologic: Denies weakness Exam Const General: no acute distress Orientation: alert [facility] Head: normal to inspection Ears: external ears normal General nose exam: external nose normal Mouth: moist mucous membranes Eyes General: appearance normal, both eyes and all related structures Neck Neck: normal visual inspection Resp Effort & Inspection: normal respiratory effort and able to speak in complete sentences Cardio Rate: regular rate Skin General skin exam: erythema Neuro General: patient alert and patient oriented x3 Extrem General: full ROM and capillary refill normal Psych Mental Status: mental status grossly normal Course Vital Signs Vital signs: Vital Signs Temperature 36.6 C 09/19/23 14:11 Pulse 105 H 09/19/23 14:11 Respiratory Rate 18 09/19/23 14:11 Blood Pressure 140/87 09/19/23 14:11 Pulse Oximetry 99 09/19/23 14:11 Temperature 36.6 C 09/19/23 14:11 Temperature Source Temporal Artery Scan 09/19/23 14:11 Pulse 105 H 09/19/23 14:11 Respiratory Rate 18 09/19/23 14:11 Respiratory Effort Normal, Non-Labored 09/19/23 14:13 Blood Pressure 140/87 09/19/23 14:11 Blood Pressure Position Sitting 09/19/23 14:11 Pulse Oximetry 99 09/19/23 14:11 Oxygen Delivery Method Room Air 09/19/23 14:11 Oxygen Flow Rate 0 09/19/23 14:11 Pain Level 5 09/19/23 14:11 Medical Decision Making 78-year-old female comes in with redness of her left distal ring finger. Says she filled off a hangnail and has had some redness of the distal finger since. She says she has not had any fevers and no pain. She is well-appearing on exam, her left distal ring finger on the posterior surface is very mild erythema surrounding the site where she removed a hangnail. There is no pustules or col lections of fluid, she has full range of motion of the finger, there is no swelling or discomfort on the palmar surface of the finger. Suspect this could just be skin irritation, do not suspect cellulitis at this time but will cover with topical bacitracin. Do not feel oral antibiotics indicated at this time. 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 On IEP. 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) diagnosed by Child Development at [facility] [place]- started concerta Medical History Asthma (05/24/12) 10/2013 mild intermittent School problem IEP updated 05/11/20-05/10/21: Counseling services once a week 45 min; Math intervention 4 times a week; reading intervention twice a week; updated IEP in chart as of 07/21/20 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 Allergy to shellfish Social History Smoking/Tobacco Use Status: Never Smoking risk assessment performed?: Yes Alcohol Intake: never Drug use: Never Substance use type: does not use Housing: house Communication Needs: None and Corrective Lenses Education Level: high school Details: 11th grade () [place] Pets and animals: Yes (dogs, cat, ferret) Pets and animals: cat(s), dog(s) and ferret(s) Do you feel safe at home: Yes Do you feel safe in your relationship?: Yes Additional Social history: GRANDMOTHER WITH CUSTODY SINCE 2 MONTHS OF AGE- PARENTS HOMELESS AND NEGLECT
[2023-09-19] MEDS: Bacitracin 30 GM TUBE TP (14:46)
[2023-09-19 14:47] VITALS: PULSE 86; O2SAT 98
== END 2023-09-19 14:47 | disposition home or self-care (01) ==
PROVIDERS: Emergency Provider Emergency Medicine; PCP Pediatrics
DX: L53.9 Erythematous condition, unspecified (principal)
CPT/HCPCS: 99283

== ENCOUNTER 2023-10-19 16:37 | Emergency (ER) | payer MEDICAID, SELFPAY ==
[2023-10-19 16:39] VITALS: BP 129/86; PULSE 104; RESP 18; TEMP 36.7; O2SAT 98
[2023-10-19 16:46] VITALS: BP 129/86; PULSE 104; RESP 18; TEMP 36.7; O2SAT 98
--- NOTE | 2023-10-19 16:52 | ED.GENADUL_ITS ---
Discharge Plan Disposition Patient Disposition: Home Condition: Stable Discharge Details Clinical Impression: Viral upper respiratory infection Primary Care Provider: Mukesh Keating ED Provider: Kylie Lindsay Home Meds and New Rx's Prescriptions: New benzonatate 100 mg capsule 100 mg PO BID PRN (Reason: cough) Qty: 7 0RF Rx Instructions: Take one tablet by mouth twice daily as needed for cough No Action naproxen sodium 220 mg capsule 220 mg PO Q8H PRN (Reason: pain) Qty: 10 0RF (DME) Space Chamber Plus Spacer 1 ea Miscellaneous Q4H PRN Qty: 2 0RF Rx Instructions: use with inhaler every 4 hours as needed chlorhexidine gluconate [Peridex] 0.12 % mouthwash 15 ml mucous membrane BID Qty: 118 2RF Rx Instructions: rinse mouth 30 seconds and spit out twice a day epinephrine [EpiPen 2-Wellington] 0.3 mg/0.3 mL auto-injector 0.3 mg IM ONCE Qty: 1 2RF ondansetron 4 mg tablet,disintegrating 4 mg PO Q8H PRN PRN (Reason: nausea and vomiting) Qty: 8 0RF bupropion HCl [Wellbutrin XL] 150 mg tablet extended release 24 hr 150 mg PO QAM Qty: 30 2RF cetirizine 10 mg tablet 10 mg PO DAILY Qty: 90 3RF famotidine 10 mg tablet 10 mg PO BID Qty: 60 4RF hydroxyzine HCl 25 mg tablet 25 mg PO Q8H PRN PRN (Reason: panic feeling) Qty: 10 0RF budesonide-formoterol [Symbicort] 80-4.5 mcg/actuation HFA aerosol inhaler See Rx Instructions .ROUTE .COMPLEX Qty: 10.2 2RF Dose Instruction: INHALE 2 PUFFS BY MOUTH TWICE DAILY. MAY ALSO USE 1-2 PUFFS EVERY 4 HOURS NEEDED Rx Instructions: INHALE 2 PUFFS BY MOUTH TWICE DAILY. MAY ALSO USE 1-2 PUFFS EVERY 4 HOURS NEEDED norethindrone (contraceptive) 0.35 mg tablet 0.35 mg PO DAILY Qty: 84 3RF Rx Instructions: start day 1 of menstrual cycle topiramate 25 mg tablet 25 mg PO BID Qty: 60 1RF ibuprofen [Ibuprofen IB] 200 mg tablet 600 mg PO PRN PRN Discharge Instructions Instructions: Viral Upper Respiratory Infection, Adult (DC) Additional Instructions: No evidence of pneumonia on the chest x-ray. Negative for COVID or the flu. I do suspect you have a viral URI or allergies. Please take the cough medicine as directed. Follow up with primary care provider in 3-5 days. Return to ED sooner if any worsening or concerns. Please take Tylenol or Ibuprofen with food every 4-6 hours as needed for pain and swelling. Referrals: Mukesh Keating MD [Primary Care Provider] - 5 days Discharge Data Discharge Date/Time-TO BE ENTERED AT DEPARTURE: 10/19/23 17:43 HPI General Mode of arrival: ambulatory . Date/Time Provider Initiated Documentation: 10/19/23 16:43 . Limitations to Documentation: no limitations . Information obtained by: patient, RN notes reviewed and old records reviewed . HPI Narrative: 17 year old female presents to the ED with cc of cough x 1 week, pain to her lower rib cage and fever which resolved 2 days ago. No other associated symptoms or concerns, denies productive cough denies ear pain or sore throat. Related Data Home Medications ?Medication ?Instructions ?Recorded ?Confirmed ibuprofen 200 mg tablet (Ibuprofen 600 mg PO PRN PRN 08/14/18 10/19/23 IB) inhalational spacing device (Space ##2 12/17/20 10/19/23 Chamber Plus) chlorhexidine gluconate 0.12 % 15 ml mucous membrane BID #118 mL 05/24/21 10/19/23 mouthwash (Peridex) naproxen sodium 220 mg capsule 220 mg PO Q8H PRN pain #10 caps 05/22/22 10/19/23 epinephrine 0.3 mg/0.3 mL 0.3 mg (0.3 mL) IM ONCE ##1 06/18/23 10/19/23 injection, auto-injector (EpiPen 2-Wellington) ondansetron 4 mg disintegrating 4 mg PO Q8H PRN PRN nausea and 06/18/23 10/19/23 tablet vomiting #8 tabs Symbicort 80 mcg-4.5 mcg/actuation See Rx Instructions .Route 09/19/23 10/19/23 HFA aerosol inhaler .COMPLEX #10.2 grams (budesonide-formoterol) bupropion HCl 150 mg 24 hr tablet, 150 mg PO QAM #30 tabs 09/19/23 10/19/23 extended release (Wellbutrin XL) cetirizine 10 mg tablet 10 mg PO DAILY #90 tab-caps 09/19/23 10/19/23 famotidine 10 mg tablet 10 mg PO BID #60 tabs 09/19/23 10/19/23 hydroxyzine HCl 25 mg tablet 25 mg PO Q8H PRN PRN panic feeling 09/19/23 10/19/23 #10 tabs norethindrone (contraceptive) 0.35 0.35 mg PO DAILY #84 tabs 09/19/23 10/19/23 mg tablet topiramate 25 mg tablet 25 mg PO BID #60 tabs 10/15/23 10/19/23 benzonatate 100 mg capsule 100 mg PO BID PRN cough #7 caps 10/19/23 Previous Rx's ?Medication ?Instructions ?Recorded inhalational spacing device (Space ##2 12/17/20 Chamber Plus) chlorhexidine gluconate 0.12 % 15 ml mucous membrane BID #118 mL 05/24/21 mouthwash (Peridex) naproxen sodium 220 mg capsule 220 mg PO Q8H PRN pain #10 caps 05/22/22 epinephrine 0.3 mg/0.3 mL 0.3 mg (0.3 mL) IM ONCE ##1 06/18/23 injection, auto-injector (EpiPen 2-Wellington) ondansetron 4 mg disintegrating 4 mg PO Q8H PRN PRN nausea and 06/18/23 tablet vomiting #8 tabs Symbicort 80 mcg-4.5 mcg/actuation See Rx Instructions .Route 09/19/23 HFA aerosol inhaler .COMPLEX #10.2 grams (budesonide-formoterol) bupropion HCl 150 mg 24 hr tablet, 150 mg PO QAM #30 tabs 09/19/23 extended release (Wellbutrin XL) cetirizine 10 mg tablet 10 mg PO DAILY #90 tab-caps 09/19/23 famotidine 10 mg tablet 10 mg PO BID #60 tabs 09/19/23 hydroxyzine HCl 25 mg tablet 25 mg PO Q8H PRN PRN panic feeling 09/19/23 #10 tabs norethindrone (contraceptive) 0.35 0.35 mg PO DAILY #84 tabs 09/19/23 mg tablet topiramate 25 mg tablet 25 mg PO BID #60 tabs 10/15/23 benzonatate 100 mg capsule 100 mg PO BID PRN cough #7 caps 10/19/23 Allergies Allergy/AdvReac Type Severity Reaction Status Date / Time bee venom protein (honey bee) Allergy Severe PROBLEMS Verified 09/26/23 13:00 BREATHING/ HIVES honey Allergy Severe Skin Rash Verified 09/26/23 13:00 davis Allergy Mild Skin Rash Verified 09/26/23 13:00 cow dander Allergy Itching Verified 09/26/23 13:00 grass pollen Allergy Hives Verified 09/26/23 13:00 perfume AdvReac Mild watery Verified 09/26/23 13:00 eyes, runny nose, face gets blotchy pollen extracts AdvReac Mild watery Verified 09/26/23 13:00 eyes, runny nose, face gets blotchy cologne Allergy Mild Headache Uncoded 09/26/23 13:00 hay Allergy Mild Skin Rash Uncoded 09/26/23 13:00 Haile] Allergy Mild rash Uncoded 09/26/23 13:00 sun Allergy Mild skin Uncoded 09/26/23 13:00 blotches shellfish Allergy Unknown Unknown Uncoded 09/26/23 13:00 Halloween makeup AdvReac Skin Rash Uncoded 09/26/23 13:00 General Stated Complaint: RespSymp GARY: 4 Review of Systems All systems reviewed & are unremarkable except as noted in HPI and below Respiratory Respiratory: Reports cough Exam Narrative Exam Narrative: Constitutional: Alert and oriented x3. Appears stated age. Normal body habitus. Head: Normocephalic, no trauma. Eyes: Pupils PERRL, Red reflex noted, EOM's intact. Eyelids symmetrical without lesions, discharge, or swelling. ENT: Bilateral TM's WNL, External ear normal to inspection, no mastoid TTP, swelling, or erythema, Nasal turbinates WNL, no nasal discharge. Normal dentition, Posterior pharynx WNL, no exudate. Chest: RRR, Normal S1, S2, distal pulses intact. Resp: Lungs clear to auscultation bilaterally, no wheezes, rales, or rhonchi. Abdomen: Soft, non-distended, Normoactive bowel sounds all 4 quads. Musculoskeletal: Normal gait, Moves all 4 extremities without difficulty. Skin: No suspicious rashes or lesions. Capillary refill less than 2 sec. Neurologic: Cranial nerves II-XII intact. Alert and oriented x 3. Motor: No deficits noted. Sensory: Intact bilaterally all 4 extremities. Hematologic/Lymphatic: No ecchymosis, no lymphadenopathy. Course Vital Signs Vital signs: Vital Signs Temperature 36.7 C 10/19/23 16:39 Pulse 104 H 10/19/23 16:39 Respiratory Rate 18 10/19/23 16:39 Blood Pressure 129/86 10/19/23 16:39 Pulse Oximetry 98 10/19/23 16:39 Temperature 36.7 C 10/19/23 16:46 Temperature Source Oral 10/19/23 16:46 Pulse 104 H 10/19/23 16:46 Respiratory Rate 18 10/19/23 16:46 Blood Pressure 129/86 10/19/23 16:46 Blood Pressure Position Sitting 10/19/23 16:46 Pulse Oximetry 98 10/19/23 16:46 Oxygen Delivery Method Room Air 10/19/23 16:46 Oxygen Flow Rate 0 10/19/23 16:46 Medical Decision Making 17 year old female presents to the ED with cc of cough x 1 week, pain to her lower rib cage and fever which resolved 2 days ago. No other associated symptoms or concerns, denies productive cough denies ear pain or sore throat. Flu and covid swab ordered, CXR Chest x-ray within normal limits negative COVID and flu swab. Will give Tessalon Perles and discharged with viral URI. Patient discharged in hemodynamically stable condition. This text was generated using Jalousier dictation system, please disregard any oddities of phrase or misspellings. 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 On IEP. 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 Pectus excavatum (Chronic 12/26/11) no interventions necessary per [facility] [place] Surgery Insomnia (Chronic 02/05/17) Frequent headaches (Chronic 09/10/14) neurology- topamax rx ADHD (attention deficit hyperactivity disorder), combined type (Chronic 09/07/14) diagnosed by Child Development at [facility] [place]- started concerta Medical History Custody issue IN CUSTODY OF SINCE 2 MONTHS OF AGE- PARENTS NOT INVOLVED Asthma (05/24/12) 10/2013 mild intermittent School problem IEP updated 05/11/20-05/10/21: Counseling services once a week 45 min; Math intervention 4 times a week; reading intervention twice a week; updated IEP in chart as of 07/21/20 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 Allergy to shellfish Social History Smoking/Tobacco Use Status: Never Smoking risk assessment performed?: Yes Alcohol Intake: never Drug use: Never Substance use type: does not use Housing: house Communication Needs: None and Corrective Lenses Education Level: high school Details: 11th grade () [place] Pets and animals: Yes (dogs, cat, ferret) Pets and animals: cat(s), dog(s) and ferret(s) Do you feel safe at home: Yes Do you feel safe in your relationship?: Yes Additional Social history: GRANDMOTHER WITH CUSTODY SINCE 2 MONTHS OF AGE- PARENTS HOMELESS AND NEGLECT
--- NOTE | 2023-10-19 17:17 | DI.RAD_ITS ---
Exam(s) XR CHEST 2V PA LATERAL EXAM: XR CHEST 2V PA LATERAL CLINICAL HISTORY: Cough TECHNIQUE: 2D digital imaging was performed. Two views. COMPARISON: CR XR CHEST 2V PA LATERAL from 03/15/2023 FINDINGS: HEART: Normal size. Aorta: Not dilated. PULMONARY VASCULATURE: Normal. MEDIASTINUM: Unremarkable. LUNGS: Clear. PLEURAL SPACE: No pleural effusion or pneumothorax. BONE:Unremarkable for age. SOFT TISSUES: Unremarkable. IMPRESSION: No acute abnormality. DATA REPOSITORY: RADIATION DOSE DELIVERED:
[2023-10-19 17:24] VITALS: TEMP 36.9
[2023-10-19] MEDS: Benzonatate 100 MG CAP PO ×2 (17:35)
[2023-10-19 17:41] VITALS: BP 113/66; PULSE 101; RESP 16; O2SAT 97
--- NOTE | 2023-10-20 08:32 | W.ED.FU ---
Date of service: 10/21/23 Follow Up Plan: Smoking patient as she is quite anxious about taking Tessalon Perles, encouraged supportive care, offered inhaler albuterol which patient declined. Denies any fever or worsening symptoms. Speaking complete sentences on the phone in no acute distress asked for an antibiotic which I have declined at this time. Patient is aware that she may return for this event
== END 2023-10-19 17:43 | disposition home or self-care (01) ==
PROVIDERS: Emergency Provider Registered Nurse Emergency; PCP Pediatrics
DX: J06.9 Acute upper respiratory infection, unspecified (principal)
CPT/HCPCS: 87426; 99283; 71046

== ENCOUNTER 2023-10-29 17:25 | Emergency (ER) | payer MEDICAID, SELFPAY ==
[2023-10-29] VITALS (8 sets, daily range): BP systolic 112–131; BP diastolic 62–90; PULSE 91–115; RESP 13–21; TEMP 36.8; O2SAT 98–99
--- NOTE | 2023-10-29 17:30 | DI.CT_ITS ---
Exam(s) CT ABDOMEN PELVIS W EXAM: CT ABDOMEN PELVIS W CLINICAL HISTORY: ruq abd pain. TECHNIQUE: Imaging Protocol: Axial computed tomography images with coronal and sagittal reformatted images were created and reviewed CONTRAST MATERIAL: Intravenous: Omnipaque 350 Contrast volume:90 ml Oral: no COMPARISON: CT CT ABDOMEN PELVIS W from 09/09/2022 FINDINGS: ABDOMEN and PELVIS: Lung Bases: No acute findings. Liver: Normal density. No suspicious mass. Gallbladder and biliary tract: No radiodense calculus. No biliary dilation. Pancreas: Normal density. No abnormal calcifications or inflammatory process. No evidence of mass. Spleen: Normal. Kidneys: Normal size, contour and axis. No radiodense stones. No obstructive uropathy. No suspicious masses seen. Adrenal glands: No masses seen. Vasculature: Abdominal aorta non-dilated. Soft tissues: Unremarkable. Bladder: No gross wall thickening. No calculi.No focal mass. Bowel: No obstruction. No bowel wall thickening. Appendix normal. Peritoneal cavity: No ascites. No focal collection. No mesenteric inflammatory response. Bones: Unremarkable for age. Reproductive organs: Unremarkable. Lymph nodes: No pathologically enlarged lymph nodes. IMPRESSION:: No acute abnormality in the abdomen or pelvis. RADIATION DOSE DELIVERED: 147.7mGy.cm Total DLP DATA REPOSITORY: All CT scans at this facility are submitted to the National Radiology Data Registry (NRDR) Dose Index Registry (DIR) with the [employer] ([employer]). RADIATION OPTIMIZATION: All CT scans at this facility use at least one of these dose optimization te chniques: automated exposure control; mA and/or kV adjustment per patient size (includes targeted exa ms where dose is matched to clinical indication); or iterative reconstruction.
[2023-10-29 17:55] LABS: Abs Immature Grans 0.01 10^3/uL (0.0-0.06); Absolute Basophil Count 0.06 10^3/uL (0.0-0.2); Absolute Eosinophil Count 0.06 10^3/uL (0.0-0.7); Absolute Lymphocyte Count 1.83 10^3/uL (1.2-3.4); Absolute Neutrophil Count 5.48 10^3/uL (1.2-6.7); Basophils % 0.7 %; Eosinophils % 0.7 %; HCT 40.1 % (36.0-46.0); Immature Grans % 0.1 %; Lymphocytes % 21.9 %; MCH 30.8 pg (27.0-33.0); MCHC 32.4 % (32.0-36.0); MCV 95 fL (80-95); MPV 9.1 fL (8.0-11.0); Monocytes % 10.8 %; Neutrophils % 65.8 %; Platelet Count 288 10^3/uL (130-400); RBC 4.22 10^6/uL (3.93-5.22); RDW 12.5 % (11.7-14.6); RDW-SD 43.1 fL; WBC 8.34 10^3/uL (4.4-10.8)
[2023-10-29] MEDS: Ondansetron 4 MG/2 ML VIAL IVP (17:57)
[2023-10-29] MEDS: Normal Saline 1,000 ML 1000 ML IV (17:57)
[2023-10-29] MEDS: Ketorolac 15 MG/ML VIAL 10 MG IVP (17:58)
[2023-10-29 18:06] LABS: Lipase 53 U/L (16-77)
[2023-10-29] MEDS: ALPRAZolam 0.25 MG TAB 0.5 MG PO (18:13)
[2023-10-29 18:15] LABS: ALT 15 U/L (14-59); AST 11 U/L (15-37); Albumin 4.2 g/dL (3.4-5.0); Alkaline Phosphatase 119 U/L (46-116); Anion Gap 9.3 mmol/L (3-11); BUN 9 mg/dL (7-18); Bilirubin, Total 0.27 mg/dL (0.2-1.0); CO2 26.7 mmol/L (21.0-32.0); CREATININE 0.8 mg/dL (0.55-1.02); Calcium 9.2 mg/dL (8.5-10.1); Chloride 106 mmol/L (98-107); Estimated GFR 108.78 (mL/min/1.73m2); Glucose 101 mg/dL (74-106); Potassium 3.5 mmol/L (3.5-5.1); Sodium 142 mmol/L (136-145); Total Protein 7.6 g/dL (6.4-8.2)
--- NOTE | 2023-10-29 18:38 | W.ED.GENAD ---
Discharge Plan Disposition Patient Disposition: Home Discharge Details Clinical Impression: Abdominal pain, Hematuria Primary Care Provider: Mukesh Keating ED Provider: Darien Betancourt Home Meds and New Rx's Prescriptions: No Action naproxen sodium 220 mg capsule 220 mg PO Q8H PRN (Reason: pain) Qty: 10 0RF (DME) Space Chamber Plus Spacer 1 ea Miscellaneous Q4H PRN Qty: 2 0RF Rx Instructions: use with inhaler every 4 hours as needed chlorhexidine gluconate [Peridex] 0.12 % mouthwash 15 ml mucous membrane BID Qty: 118 2RF Rx Instructions: rinse mouth 30 seconds and spit out twice a day epinephrine [EpiPen 2-Wellington] 0.3 mg/0.3 mL auto-injector 0.3 mg IM ONCE Qty: 1 2RF ondansetron 4 mg tablet,disintegrating 4 mg PO Q8H PRN PRN (Reason: nausea and vomiting) Qty: 8 0RF bupropion HCl [Wellbutrin XL] 150 mg tablet extended release 24 hr 150 mg PO QAM Qty: 30 2RF cetirizine 10 mg tablet 10 mg PO DAILY Qty: 90 3RF famotidine 10 mg tablet 10 mg PO BID Qty: 60 4RF hydroxyzine HCl 25 mg tablet 25 mg PO Q8H PRN PRN (Reason: panic feeling) Qty: 10 0RF budesonide-formoterol [Symbicort] 80-4.5 mcg/actuation HFA aerosol inhaler See Rx Instructions .ROUTE .COMPLEX Qty: 10.2 2RF Dose Instruction: INHALE 2 PUFFS BY MOUTH TWICE DAILY. MAY ALSO USE 1-2 PUFFS EVERY 4 HOURS NEEDED Rx Instructions: INHALE 2 PUFFS BY MOUTH TWICE DAILY. MAY ALSO USE 1-2 PUFFS EVERY 4 HOURS NEEDED norethindrone (contraceptive) 0.35 mg tablet 0.35 mg PO DAILY Qty: 84 3RF Rx Instructions: start day 1 of menstrual cycle topiramate 25 mg tablet 25 mg PO BID Qty: 60 1RF ibuprofen [Ibuprofen IB] 200 mg tablet 600 mg PO PRN PRN benzonatate 100 mg capsule 100 mg PO BID PRN (Reason: cough) Qty: 7 0RF Rx Instructions: Take one tablet by mouth twice daily as needed for cough Discharge Instructions Instructions: Abdominal Pain, Adult ED Additional Instructions: Lab work and CT imaging today are unremarkable. Please up with your PCP for reevaluation of any ongoing symptoms. It does seem that your symptoms seem to be food related, so please monitor what you eat. You do have some blood in your urine. This could be very nonspecific, I would recommend a recheck of the urinalysis in a few months and if it is persistent, you may need to see a urologist. The primary care provider can handle these outpatient workups. HPI General Date/Time Provider Initiated Documentation: 10/29/23 17:29. Limitations to Documentation: no limitations. Information obtained by: patient. HPI Narrative: 17-year-old female without significant past medical history presents for evaluation of right upper quadrant abdominal pain. She reports that this is been ongoing for the last 2 days. It is worse with food. It is a sharp intermittent pain. Not associated with fever or vomiting. Not associated with diarrhea. Denies any change in urination including dysuria or hematuria. She reports that the pain is always in the same spot. Feels better if she does not eat. She states that she has had this pain previously and was told that it was from spicy and greasy food. Related Data Home Medications ?Medication ?Instructions ?Recorded ?Confirmed ibuprofen 200 mg tablet (Ibuprofen 600 mg PO PRN PRN 08/14/18 10/29/23 IB) inhalational spacing device (Space ##2 12/17/20 10/29/23 Chamber Plus) chlorhexidine gluconate 0.12 % 15 ml mucous membrane BID #118 mL 05/24/21 10/29/23 mouthwash (Peridex) naproxen sodium 220 mg capsule 220 mg PO Q8H PRN pain #10 caps 05/22/22 10/29/23 epinephrine 0.3 mg/0.3 mL 0.3 mg (0.3 mL) IM ONCE ##1 06/18/23 10/29/23 injection, auto-injector (EpiPen 2-Wellington) ondansetron 4 mg disintegrating 4 mg PO Q8H PRN PRN nausea and 06/18/23 10/29/23 tablet vomiting #8 tabs Symbicort 80 mcg-4.5 mcg/actuation See Rx Instructions .Route 09/19/23 10/29/23 HFA aerosol inhaler .COMPLEX #10.2 grams (budesonide-formoterol) bupropion HCl 150 mg 24 hr tablet, 150 mg PO QAM #30 tabs 09/19/23 10/29/23 extended release (Wellbutrin XL) cetirizine 10 mg tablet 10 mg PO DAILY #90 tab-caps 09/19/23 10/29/23 famotidine 10 mg tablet 10 mg PO BID #60 tabs 09/19/23 10/29/23 hydroxyzine HCl 25 mg tablet 25 mg PO Q8H PRN PRN panic feeling 09/19/23 10/29/23 #10 tabs norethindrone (contraceptive) 0.35 0.35 mg PO DAILY #84 tabs 09/19/23 10/29/23 mg tablet topiramate 25 mg tablet 25 mg PO BID #60 tabs 10/15/23 10/29/23 benzonatate 100 mg capsule 100 mg PO BID PRN cough #7 caps 10/19/23 10/29/23 Previous Rx's ?Medication ?Instructions ?Recorded inhalational spacing device (Space ##2 12/17/20 Chamber Plus) chlorhexidine gluconate 0.12 % 15 ml mucous membrane BID #118 mL 05/24/21 mouthwash (Peridex) naproxen sodium 220 mg capsule 220 mg PO Q8H PRN pain #10 caps 05/22/22 epinephrine 0.3 mg/0.3 mL 0.3 mg (0.3 mL) IM ONCE ##1 06/18/23 injection, auto-injector (EpiPen 2-Wellington) ondansetron 4 mg disintegrating 4 mg PO Q8H PRN PRN nausea and 06/18/23 tablet vomiting #8 tabs Symbicort 80 mcg-4.5 mcg/actuation See Rx Instructions .Route 09/19/23 HFA aerosol inhaler .COMPLEX #10.2 grams (budesonide-formoterol) bupropion HCl 150 mg 24 hr tablet, 150 mg PO QAM #30 tabs 09/19/23 extended release (Wellbutrin XL) cetirizine 10 mg tablet 10 mg PO DAILY #90 tab-caps 09/19/23 famotidine 10 mg tablet 10 mg PO BID #60 tabs 09/19/23 hydroxyzine HCl 25 mg tablet 25 mg PO Q8H PRN PRN panic feeling 09/19/23 #10 tabs norethindrone (contraceptive) 0.35 0.35 mg PO DAILY #84 tabs 09/19/23 mg tablet topiramate 25 mg tablet 25 mg PO BID #60 tabs 10/15/23 benzonatate 100 mg capsule 100 mg PO BID PRN cough #7 caps 10/19/23 Allergies Allergy/AdvReac Type Severity Reaction Status Date / Time bee venom protein (honey bee) Allergy Severe PROBLEMS Verified 10/29/23 17:31 BREATHING/ HIVES honey Allergy Severe Skin Rash Verified 10/29/23 17:31 davis Allergy Mild Skin Rash Verified 10/29/23 17:31 cow dander Allergy Itching Verified 10/29/23 17:31 grass pollen Allergy Hives Verified 10/29/23 17:31 perfume AdvReac Mild watery Verified 10/29/23 17:31 eyes, runny nose, face gets blotchy pollen extracts AdvReac Mild watery Verified 10/29/23 17:31 eyes, runny nose, face gets blotchy cologne Allergy Mild Headache Uncoded 10/29/23 17:31 hay Allergy Mild Skin Rash Uncoded 10/29/23 17:31 Haile] Allergy Mild rash Uncoded 10/29/23 17:31 sun Allergy Mild skin Uncoded 10/29/23 17:31 blotches shellfish Allergy Unknown Unknown Uncoded 10/29/23 17:31 Halloween makeup AdvReac Skin Rash Uncoded 10/29/23 17:31 General Stated Complaint: Abd Prob GARY: 3 Exam Narrative Exam Narrative: Review of Systems: All systems reviewed & are unremarkable except as noted in HPI and below Well-developed, no acute distress NCAT PERRL, normal conjunctiva no jaundice RRR, no murmur Unlabored respiratory effort, CTAB Nondistended abdomen , +RUQ pain no guarding/ rebound Course Vital Signs Vital signs: Vital Signs Temperature 36.8 C 10/29/23 17:28 Pulse 106 H 10/29/23 17:28 Respiratory Rate 18 10/29/23 17:28 Blood Pressure 131/90 10/29/23 17:28 Pulse Oximetry 98 10/29/23 17:28 Temperature 36.8 C 10/29/23 17:32 Temperature Source Oral 09/09/24 17:32 Pulse 106 H 10/29/23 18:34 Respiratory Rate 20 10/29/23 18:34 Respiratory Effort Normal, Non-Labored 10/29/23 17:33 Blood Pressure 112/62 10/29/23 18:34 Blood Pressure Mean 78 10/29/23 18:34 Blood Pressure Position Sitting 10/29/23 17:32 Pulse Oximetry 98 10/29/23 17:32 Oxygen Delivery Method Room Air 10/29/23 17:32 Oxygen Flow Rate 0 10/29/23 17:32 Pain Level 0 10/29/23 18:34 Lab/Test Results Lab/Test Results: Laboratory Tests Range/Units 10/29/23 17:48 WBC (4.4-10.8) 10^3/uL 8.34 RBC (3.93-5.22) 10^6/uL 4.22 Hgb (11.2-15.7) g/dL 13.0 Hct (36.0-46.0) % 40.1 MCV (80-95) fL 95 MCH (27.0-33.0) pg 30.8 MCHC (32.0-36.0) % 32.4 RDW (11.7-14.6) % 12.5 Plt Count (130-400) 10^3/uL 288 MPV (8.0-11.0) fL 9.1 Immature Gran % % 0.1 Neutrophils % % 65.8 Lymphocytes % % 21.9 Monocytes % % 10.8 Eosinophils % % 0.7 Basophils % % 0.7 Nucleated RBC % (0.0-0.3) % 0.0 Absolute Neutrophils (1.2-6.7) 10^3/uL 5.48 Absolute Lymphocytes (1.2-3.4) 10^3/uL 1.83 Absolute Monocytes (0.1-0.8) 10^3/uL 0.90 H Absolute Eosinophils (0.0-0.7) 10^3/uL 0.06 Absolute Basophils (0.0-0.2) 10^3/uL 0.06 Sodium (136-145) mmol/L 142 Potassium (3.5-5.1) mmol/L 3.5 Chloride (98-107) mmol/L 106 Carbon Dioxide (21.0-32.0) mmol/L 26.7 Anion Gap (3-11) mmol/L 9.3 BUN (7-18) mg/dL 9 Creatinine (0.55-1.02) mg/dL 0.8 Est GFR (CKD-EPI 2020) (mL/min/1.73m2) 108.78 Glucose (74-106) mg/dL 101 Calcium (8.5-10.1) mg/dL 9.2 Total Bilirubin (0.2-1.0) mg/dL 0.27 AST (15-37) U/L 11 L ALT (14-59) U/L 15 Alkaline Phosphatase (46-116) U/L 119 H Total Protein (6.4-8.2) g/dL 7.6 Albumin (3.4-5.0) g/dL 4.2 Lipase (16-77) U/L 53 POC- Test(urine) Negative Medical Decision Making Emergent evaluation of right upper quadrant abdominal pain. Initial differential includes cholelithiasis, pancreatitis, gas, renal colic. Patient is afebrile and hemodynamically stable. She has minor upper quadrant tenderness on exam. Unfortunately given the time of day and unable to get an ultrasound to evaluate. The patient did have blood work obtained. There is no leukocytosis or anemia. There is no electrolyte derangement. Her renal function is within normal limits. Her bilirubin and LFTs are normal. These lab findings are reassuring, I doubt a serious bacterial illness, infectious etiology or obstructive biliary etiology. Her urinalysis does demonstrate blood. She is not on her menstrual cycle. I recommend that she get a repeat urinalysis with her PCP in the near future and if hematuria persist, she may need further urology evaluation. The renal stone may be a etiology of her symptoms and because of hematuria, there was no apparent stone on the CT scanner. The patient has been observed in the emergency department and is very well-appearing and pain-free. At this time she is stable for discharge home. 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 On IEP. 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 Pectus excavatum (Chronic 12/26/11) [place] [facility] [place] Insomnia (Chronic 02/05/17) Frequent headaches (Chronic 09/10/14) neurology- topamax rx ADHD (attention deficit hyperactivity disorder), combined type (Chronic 09/07/14) [place] [facility] [place] Medical History Custody issue IN CUSTODY OF SINCE 2 MONTHS OF AGE- PARENTS NOT INVOLVED Asthma (05/24/12) 10/2013 mild intermittent School problem IEP updated 05/11/20-05/10/21: Counseling services once a week 45 min; Math intervention 4 times a week; reading intervention twice a week; updated IEP in chart as of 07/21/20 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 Allergy to shellfish Social History Smoking/Tobacco Use Status: Never Smoking risk assessment performed?: Yes Alcohol Intake: never Drug use: Never Substance use type: does not use Housing: house Communication Needs: None and Corrective Lenses Education Level: high school Details: 11th grade () [employer] Pets and animals: Yes (dogs, cat, ferret) Pets and animals: cat(s), dog(s) and ferret(s) Do you feel safe at home: Yes Do you feel safe in your relationship?: Yes Additional Social history: GRANDMOTHER WITH CUSTODY SINCE 2 MONTHS OF AGE- PARENTS HOMELESS AND NEGLECT
[2023-10-29] MEDS: Omnipaque 350 MG/ML 100 ML BTL IJ (18:54)
[2023-10-29] MEDS: Normal Saline Flush 10 ML SYR IVP (18:55)
[2023-10-29] MEDS: Normal Saline - Diluent 50 ML VIAL IJ (18:55)
[2023-10-29 19:08] LABS: Bilirubin Negative (Negative); Blood Moderate (Negative); Clarity Sl Cloudy (Clear); Glucose Negative (Negative); Ketones Negative (Negative); Leukocyte Esterase Negative (Negative); Nitrite Negative (Negative); Urobilinogen 0.2 mg/dL (Up to 0.2)
[2023-10-29 19:17] LABS: Bacteria Rare HPF (Negative); C & S Indicated? No; Casts Negative LPF (Negative); Crystals Negative HPF (Negative); Epithelial Cells Rare HPF (Negative); Mucus Negative (Negative); WBC 0-2 HPF (0-5)
--- NOTE | 2023-10-29 20:05 | DI.VRAD_ITS ---
PROCEDURE INFORMATION: Exam: CT Abdomen And Pelvis With Contrast Exam date and time: 10/29/2023 7:05 PM Age: 17 years old Clinical indication: Abdominal pain; Localized; Right upper quadrant (ruq); Patient HX: Ruq pain TECHNIQUE: Imaging protocol: Computed tomography of the abdomen and pelvis with contrast. Radiation optimization: All CT scans at this facility use at least one of these dose optimization techniques: automated exposure control; mA and/or kV adjustment per patient size (includes targeted exams where dose is matched to clinical indication); or iterative reconstruction. Contrast material: OMNIPAQUE 350; Contrast volume: 65 ml; Contrast route: INTRAVENOUS (IV); COMPARISON: CT ABDOMEN PELVIS W 09/09/2022 9:42 PM FINDINGS: Liver: Normal. No mass. Gallbladder and biliary ducts: Normal. No calcified stones. No ductal dilation. Pancreas: Normal. No ductal dilation. Spleen: Normal. No splenomegaly. Adrenal glands: Normal. No mass. Kidneys and ureters: Normal. No hydronephrosis. Stomach and bowel: There is no evidence of small or large bowel inflammation. There is no evidence for bowel obstruction. Appendix: The appendix is well visualized in the right lower quadrant and appears normal. Intraperitoneal space: There is a tiny amount of free fluid in the pelvis, as on prior study, likely physiologic. There is no free intraperitoneal air. Vasculature: Unremarkable. No abdominal aortic aneurysm. Lymph nodes: Unremarkable. No enlarged lymph nodes. Urinary bladder: Unremarkable as visualized. Reproductive: The uterus appears to be retroverted and anteflexed, as on prior study. Bones/joints: Unremarkable. No acute fracture. Soft tissues: Unremarkable. IMPRESSION: No acute process within the abdomen or pelvis identified. Dictated and Authenticated by: Tobi Catherine MD. Ordering:[facility] Asia Dominguez MD
== END 2023-10-29 20:13 | disposition home or self-care (01) ==
PROVIDERS: Emergency Provider Emergency Medicine; PCP Pediatrics
DX: R10.11 Right upper quadrant pain (principal); R31.29 Other microscopic hematuria
CPT/HCPCS: 80053; 81025; 83690; 96361; 96374; 96375; 99285; 74177; 81003; 81015; 85025; 99283; J1885; J2405; J3490

== ENCOUNTER 2023-10-31 10:26 | Outpatient (REF) | payer MEDICAID, SELFPAY ==
[2023-11-01 12:26] LABS: Chlamydia Result Negative (Negative); GC Result Negative (Negative)
== END 2023-10-31 10:27 | disposition home or self-care (01) ==
LOC: LBO 10:26
PROVIDERS: PCP Pediatrics; Referring Provider Pediatrics; Visit Provider Pediatrics
DX: R30.0 Dysuria (principal); R31.9 Hematuria, unspecified
CPT/HCPCS: 87491; 87591; 87086

== ENCOUNTER 2024-04-16 11:33 | Outpatient (REF) | payer MEDICAID, SELFPAY ==
[2024-04-16 12:34] LABS: *AMPHETAMINES SCREEN URINE Negative (Negative); *BARBITURATES SCREEN URINE Negative (Negative); *BENZODIAZEPINES SCREEN URINE Negative (Negative); Cannabinoids THC Negative (Negative); Cocaine Screen,Urine Negative (Negative); METHADONE URINE SCREEN Negative (Negative); OPIATES URINE SCREEN Negative (Negative); Tricyclic Antidepressants Negative (Negative)
[2024-04-16 12:37] LABS: COMMENT (LAB VIEW ONLY) 118.24 mg/dL; Prot/Crea Ur Ratio 0.15
[2024-04-17 11:35] LABS: Fentanyl Scr w/Rfx Confirm Negative ng/mL (<1)
[2024-04-22 06:06] LABS: Buprenorphine Negative ng/mL (Cutoff: 5.0); Norbuprenorphine Negative ng/mL (Cutoff: 2.5)
== END 2024-04-16 11:34 | disposition home or self-care (01) ==
LOC: LBN 11:33
PROVIDERS: PCP Pediatrics; Visit Provider Advanced Practice Midwife
DX: Z34.91 Encounter for supervision of normal pregnancy, unspecified, first trimester (principal); I10 Essential (primary) hypertension
CPT/HCPCS: 80307; 80348; 82565; 84156; 87086

== ENCOUNTER 2024-04-16 11:50 | Outpatient (CLI) | payer MEDICAID, SELFPAY ==
[2024-04-16 12:03] LABS: Panorama Kit Sent via Fed Ex
[2024-04-16 12:08] LABS: Abs Immature Grans 0.04 10^3/uL (0.0-0.06); Absolute Basophil Count 0.04 10^3/uL (0.0-0.2); Absolute Eosinophil Count 0.07 10^3/uL (0.0-0.7); Absolute Lymphocyte Count 2.08 10^3/uL (1.2-3.4); Absolute Monocyte Count 0.56 10^3/uL (0.1-0.8); Absolute Neutrophil Count 7.41 10^3/uL (1.2-6.7); Basophils % 0.4 %; Eosinophils % 0.7 %; HCT 34.5 % (36.0-46.0); HGB 11.5 g/dL (11.2-15.7); Immature Grans % 0.4 %; Lymphocytes % 20.4 %; MCH 31.1 pg (27.0-33.0); MCHC 33.3 % (32.0-36.0); MCV 93 fL (80-95); Monocytes % 5.5 %; Neutrophils % 72.6 %; Platelet Count 241 10^3/uL (130-400); RDW 13.3 % (11.7-14.6); RDW-SD 45.4 fL
[2024-04-16 12:35] LABS: ALT 18 U/L (14-59); AST 12 U/L (15-37); Albumin 3.7 g/dL (3.4-5.0); Alkaline Phosphatase 68 U/L (46-116); Anion Gap 9.7 mmol/L (3-11); BUN 11 mg/dL (7-18); Bilirubin, Total 0.27 mg/dL (0.2-1.0); CO2 26.3 mmol/L (21.0-32.0); CREATININE 0.5 mg/dL (0.55-1.02); Calcium 9.7 mg/dL (8.5-10.1); Chloride 105 mmol/L (98-107); Estimated GFR 137.62 (mL/min/1.73m2); Glucose 83 mg/dL (74-106); Potassium 3.8 mmol/L (3.5-5.1); Sodium 141 mmol/L (136-145); Total Protein 7.5 g/dL (6.4-8.2)
[2024-04-17 10:16] LABS: Hepatitis B Surface Ag Negative (Negative)
[2024-04-17 10:56] LABS: Rubella IgG Ab (UVM) Positive (See Note)
[2024-04-17 11:00] LABS: Varicella IgG Antibody Positive (See Note)
[2024-04-17 13:39] LABS: Hepatitis C Ab w Rflx HCV PCR Negative (Negative)
[2024-04-17 13:57] LABS: HIV-1/2 Ag & Ab Screen Negative (Negative)
[2024-04-18 18:57] LABS: Syphilis IgG w/Reflex Nonreactive (Nonreactive)
[2024-04-28 13:02] LABS: Result Summary NEGATIVE; Specimen WB Whole Blood
== END 2024-04-16 11:51 | disposition home or self-care (01) ==
LOC: LBO 11:50
PROVIDERS: Advanced Practice Midwife; PCP Pediatrics; Visit Provider Advanced Practice Midwife
DX: Z34.91 Encounter for supervision of normal pregnancy, unspecified, first trimester (principal); I10 Essential (primary) hypertension; E84.9 Cystic fibrosis, unspecified
CPT/HCPCS: 36415; 80053; 81220; 81222; 86787; 86803; 86850; 86900; 86901; 87340; 87389; 84550; 85025; 86762; 86780

== ENCOUNTER 2024-05-14 14:28 | Outpatient (REF) | payer MEDICAID, SELFPAY ==
[2024-05-15 11:46] LABS: Chlamydia Result Negative (Negative); GC Result Negative (Negative)
== END 2024-05-14 14:29 | disposition home or self-care (01) ==
LOC: LBN 14:28
PROVIDERS: PCP Pediatrics; Visit Provider Advanced Practice Midwife
DX: Z34.91 Encounter for supervision of normal pregnancy, unspecified, first trimester (principal)
CPT/HCPCS: 87491; 87591

== ENCOUNTER 2024-08-08 01:00 | Outpatient (CLI) | payer MEDICAID, SELFPAY ==
[2024-08-08 13:53] LABS: HCT 33.2 % (36.0-46.0); HGB 10.8 g/dL (11.2-15.7); MCH 30.4 pg (27.0-33.0); MCHC 32.5 % (32.0-36.0); MCV 94 fL (80-95); MPV 9.8 fL (8.0-11.0); Platelet Count 209 10^3/uL (130-400); RBC 3.55 10^6/uL (3.93-5.22); RDW 13.2 % (11.7-14.6); RDW-SD 45.5 fL; WBC 9.75 10^3/uL (4.4-10.8)
[2024-08-08 14:15] LABS: Glucose,1 Hr (Glucola) 98 mg/dL (80-140)
== END 2024-08-08 01:01 | disposition home or self-care (01) ==
LOC: LBO 01:00
PROVIDERS: Advanced Practice Midwife; PCP Pediatrics; Visit Provider Advanced Practice Midwife
DX: Z34.93 Encounter for supervision of normal pregnancy, unspecified, third trimester (principal)
CPT/HCPCS: 36415; 82950; 85027

== ENCOUNTER 2024-08-08 13:06 | Outpatient (REF) | payer MEDICAID, SELFPAY ==
[2024-08-08 16:51] LABS: *AMPHETAMINES SCREEN URINE Negative (Negative); *BARBITURATES SCREEN URINE Negative (Negative); *BENZODIAZEPINES SCREEN URINE Negative (Negative); Cannabinoids THC Negative (Negative); Cocaine Screen,Urine Negative (Negative); METHADONE URINE SCREEN Negative (Negative); OPIATES URINE SCREEN Negative (Negative); Tricyclic Antidepressants Negative (Negative)
[2024-08-11 12:00] LABS: Fentanyl Scr w/Rfx Confirm Negative ng/mL (<1)
[2024-08-15 15:14] LABS: Buprenorphine Negative ng/mL (Cutoff: 5.0); Norbuprenorphine Negative ng/mL (Cutoff: 2.5)
== END 2024-08-08 13:07 | disposition home or self-care (01) ==
LOC: LBN 13:06
PROVIDERS: PCP Pediatrics; Visit Provider Advanced Practice Midwife
DX: Z34.93 Encounter for supervision of normal pregnancy, unspecified, third trimester (principal)
CPT/HCPCS: 80307; 80348

== ENCOUNTER 2024-08-16 10:01 | Emergency (ER) | payer MEDICAID, SELFPAY ==
[2024-08-16] VITALS (20 sets, daily range): BP systolic 92–131; BP diastolic 33–91; PULSE 134–190; RESP 16–33; TEMP 36.9–37.8; O2SAT 97–100
--- NOTE | 2024-08-16 10:15 | RT.EKG_ITS ---
APPROVED REPORT Exam: Resting ECG Reason for Exam: SOB, tachycardia Patient Location: E HR:165 bpm ECG Measurements Heart Rate 165 AXIS NM 111 P 70 QRSd 69 QRS 64 QT 259 T -50 QTc 429 Conclusion Sinus tachycardia...rate> 99 Nonspecific repol abnormality, diffuse leads...ST dep, T flat/neg, ant/lat/inf Physician: no stemi
[2024-08-16 10:54] LABS: BE (Venous) -3 mmol/L (-2-3); HCO3 (Venous) 22 mmol/L (23-28); O2 Sat (Venous) 74 %; TCO2 (Venous) 21 mmol/L (24-29); pCO2 (Venous) 38 mmHg (41-51); pH (Venous) 7.37 (7.31-7.41); pO2 (Venous) 38 mmHg
[2024-08-16 11:01] LABS: Abs Immature Grans 0.35 10^3/uL (0.0-0.06); HCT 29.4 % (36.0-46.0); HGB 9.6 g/dL (11.2-15.7); MCH 30.1 pg (27.0-33.0); MCHC 32.7 % (32.0-36.0); MCV 92 fL (80-95); Platelet Count 165 10^3/uL (130-400); RBC 3.19 10^6/uL (3.93-5.22); RDW 13.5 % (11.7-14.6); RDW-SD 46.3 fL
[2024-08-16] MEDS: Lactated Ringers 1,000 ML 1000 ML IV (11:05)
--- NOTE | 2024-08-16 11:06 | W.ED.GENAD ---
Discharge Plan Disposition Patient Disposition: Transfer-Acute Inpatient Care Specific Acute Inpt Facility: [facility] Condition: Serious Discharge Details Clinical Impression: Chest pain, Severe sepsis, Dehydration, Uterine contractions Primary Care Provider: Mukesh Keating ED Provider: Mukesh Huber Home Meds and New Rx's Prescriptions: No Action famotidine 10 mg tablet 10 mg PO BID Qty: 60 4RF albuterol sulfate 90 mcg/actuation HFA aerosol inhaler 2 puff inhalation Q6H Ilaris (PF) 150 mg/mL solution 150 mg subcut Q8W Rx Instructions: On Hold Plus Vitamin-Mineral 27 mg iron- 1 mg tablet 1 tab PO DAILY Qty: 90 6RF (DME) Space Chamber Plus Spacer 1 ea Miscellaneous Q4H PRN Qty: 2 0RF Rx Instructions: use with inhaler every 4 hours as needed chlorhexidine gluconate [Peridex] 0.12 % mouthwash 15 ml mucous membrane BID Qty: 118 2RF Rx Instructions: rinse mouth 30 seconds and spit out twice a day cetirizine 10 mg tablet 10 mg PO DAILY Qty: 90 3RF budesonide-formoterol [Symbicort] 80-4.5 mcg/actuation HFA aerosol inhaler See Rx Instructions .ROUTE .COMPLEX Qty: 10.2 2RF Dose Instruction: INHALE 2 PUFFS BY MOUTH TWICE DAILY. MAY ALSO USE 1-2 PUFFS EVERY 4 HOURS NEEDED Rx Instructions: INHALE 2 PUFFS BY MOUTH TWICE DAILY. MAY ALSO USE 1-2 PUFFS EVERY 4 HOURS NEEDED epinephrine [EpiPen 2-Wellington] 0.3 mg/0.3 mL auto-injector 0.3 mg IM ONCE Qty: 1 2RF HPI General Date/Time Provider Initiated Documentation: 08/16/24 10:24. 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 She presents today for evaluation of cough, right sided rib pain, left-sided chest pain, occasional pelvic cramping and abdominal cramping. Patient states that for the last week she has had a mild cough, and the pain has been present and worsening since then. Cough is nonproductive. Abdominal pain and cramping has been going on for the last day or 2, it is sharp, brief, and resolves on its own. She denies vaginal discharge or bleeding. She denies dysuria or frequency. She denies hemoptysis. She denies any history of blood clots, recent long trips surgeries or procedures. She states that it feels painful to breathe, it hurts when she touches the right chest, but the pain is not made worse with palpation on the left. Pain with breathing is bilateral. She denies any falls or trauma or assault. The patient had been taking Kanak into Mab, but was stopped during . She has otherwise had normal ultrasounds. She has no other complaints. Related Data Home Medications ?Medication ?Instructions ?Recorded ?Confirmed inhalational spacing device (Space ##2 12/17/20 08/16/24 Chamber Plus) chlorhexidine gluconate 0.12 % 15 ml mucous membrane BID #118 mL 05/24/21 08/16/24 mouthwash (Peridex) Symbicort 80 mcg-4.5 mcg/actuation See Rx Instructions .Route 09/19/23 08/16/24 HFA aerosol inhaler .COMPLEX #10.2 grams (budesonide-formoterol) cetirizine 10 mg tablet 10 mg PO DAILY #90 tab-caps 09/19/23 08/16/24 famotidine 10 mg tablet 10 mg PO BID #60 tabs 10/31/23 08/16/24 albuterol sulfate 90 mcg/actuation 2 puff inhalation Q6H 03/05/24 08/16/24 aerosol inhaler canakinumab (PF) 150 mg/mL 150 mg subcut Q8W 04/16/24 08/16/24 subcutaneous solution (Ilaris (PF)) Held on 08/16/24. Instructions: Changed by Provider vitamin no.180-ferrous 1 tab PO DAILY #90 tabs 07/09/24 08/16/24 fumarate 27 mg-folic acid 1 mg tablet ( Plus Vitamin-Mineral) epinephrine 0.3 mg/0.3 mL 0.3 mg (0.3 mL) IM ONCE ##1 07/11/24 08/16/24 injection, auto-injector (EpiPen 2-Wellington) Previous Rx's ?Medication ?Instructions ?Recorded inhalational spacing device (Space ##2 12/17/20 Chamber Plus) chlorhexidine gluconate 0.12 % 15 ml mucous membrane BID #118 mL 05/24/21 mouthwash (Peridex) Symbicort 80 mcg-4.5 mcg/actuation See Rx Instructions .Route 09/19/23 HFA aerosol inhaler .COMPLEX #10.2 grams (budesonide-formoterol) cetirizine 10 mg tablet 10 mg PO DAILY #90 tab-caps 09/19/23 famotidine 10 mg tablet 10 mg PO BID #60 tabs 10/31/23 vitamin no.180-ferrous 1 tab PO DAILY #90 tabs 07/09/24 fumarate 27 mg-folic acid 1 mg tablet ( Plus Vitamin-Mineral) epinephrine 0.3 mg/0.3 mL 0.3 mg (0.3 mL) IM ONCE ##1 07/11/24 injection, auto-injector (EpiPen 2-Wellington) Allergies Allergy/AdvReac Type Severity Reaction Status Date / Time bee venom protein (honey bee) Allergy Severe PROBLEMS Verified 08/08/24 12:48 BREATHING/ HIVES honey Allergy Severe Skin Rash Verified 08/08/24 12:48 davis Allergy Mild Skin Rash Verified 08/08/24 12:48 cow dander Allergy Itching Verified 08/08/24 12:48 grass pollen Allergy Hives Verified 08/08/24 12:48 perfume AdvReac Mild watery Verified 08/08/24 12:48 eyes, runny nose, face gets blotchy pollen extracts AdvReac Mild watery Verified 08/08/24 12:48 eyes, runny nose, face gets blotchy cologne Allergy Mild Headache Uncoded 08/08/24 12:48 hay Allergy Mild Skin Rash Uncoded 08/08/24 12:48 Haile] Allergy Mild rash Uncoded 08/08/24 12:48 sun Allergy Mild skin Uncoded 08/08/24 12:48 blotches shellfish Allergy Unknown Unknown Uncoded 08/08/24 12:48 Halloween makeup AdvReac Skin Rash Uncoded 08/08/24 12:48 General Stated Complaint: RespSymp GARY: 2 Exam Narrative Exam Narrative: 1.Const: Well-nourished, Well-developed, appearing stated age 2.Eyes: PERRL, no conjunctival injection, and symmetrical lids. 3.ENT: Atraumatic external nose and ears. Moist MM. Neck: Symmetric, trachea midline, No thyromegaly. 4.CVS: +S1/S2, Peripheral pulses 2+ and equal in all extremities. Brisk capillary refill in all extremities. 5.RESP: Unlabored respiratory effort. Clear to auscultation bilaterally. No wheezes rales or rhonchi. Mild reproducible tenderness on palpation of the lower right ribs. 6.GI: Soft, appropriately gravid abdomen, mild tenderness on light palpation throughout, particularly the left abdomen. No guarding or rebound no. 7.MSK: Normocephalic/Atraumatic, Extremities w/o deformity or ttp No cyanosis or clubbing, Normal movement of all extremities 8.Skin: Warm, Dry. No rashes or lesions. 9.Neuro: lens generator II-XII grossly intact. Sensation grossly intact, no focal neurologic deficits. 10.Psych: (AAO) x3. Appropriate mood and affect Course Vital Signs Vital signs: Vital Signs Temperature 36.9 C 08/16/24 10:11 Pulse 166 H 08/16/24 10:11 Respiratory Rate 16 08/16/24 10:11 Blood Pressure 111/65 08/16/24 10:11 Pulse Oximetry 98 08/16/24 10:11 Temperature 36.9 C 08/16/24 10:29 Temperature Source Oral 08/16/24 10:11 Pulse 166 H 08/16/24 10:29 Respiratory Rate 23 08/16/24 10:32 Respiratory Effort Short of Breath 08/16/24 10:32 Respiratory Depth Normal 08/16/24 10:32 Respiratory Pattern Tachypnea 08/16/24 10:32 Blood Pressure 111/65 08/16/24 10:29 Pulse Oximetry 98 08/16/24 10:29 Oxygen Delivery Method Room Air 08/16/24 10:11 Oxygen Flow Rate 0 08/16/24 10:11 Pain Level 10 08/16/24 10:11 Lab/Test Results Lab/Test Results: Laboratory Tests Range/Units 08/16/24 10:34 VBG pH (7.31-7.41) 7.37 VBG pCO2 (41-51) mmHg 38 L VBG pO2 mmHg 38 VBG HCO3 (23-28) mmol/L 22 L VBG Total CO2 (24-29) mmol/L 21 L VBG O2 Saturation % 74 VBG Base Excess (-2-3) mmol/L -3 L Medical Decision Making 18-year-old female who is a G1, P0 who is currently currently 29 weeks with a past medical history of hypertension, asthma, anxiety, GERD, 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 She presents today for evaluation of cough, right sided rib pain, left-sided chest pain, occasional pelvic cramping and abdominal cramping. Patient states that for the last week she has had a mild cough, and the pain has been present and worsening since then. Cough is nonproductive. Abdominal pain and cramping has been going on for the last day or 2, it is sharp, brief, and resolves on its own. She denies vaginal discharge or bleeding. She denies dysuria or frequency. She denies hemoptysis. She denies any history of blood clots, recent long trips surgeries or procedures. She states that it feels painful to breathe, it hurts when she touches the right chest, but the pain is not made worse with palpation on the left. Pain with breathing is bilateral. She denies any falls or trauma or assault. The patient had been taking Kanak into Mab, but was stopped during . She has otherwise had normal ultrasounds. She has no other complaints. Exam demonstrates notably tachycardic female in the 170s, clear lung sounds, reproducible right rib tenderness, mild left-sided abdominal tenderness. Bedside E-FAST was performed, right ventricle does not appear overly dilated, no large pericardial effusion or tamponade. Patient does demonstrate evidence suggestive of a mild right sided pneumonia, with scattered B-lines and some consolidation. Left lungs are otherwise clear. Bilateral lung slide. No evidence of pneumothorax. No free fluid in the abdomen, heart rate 160 for baby. Differential is broad but includes anxiety, dehydration, pneumonia and sepsis, PE. With no free fluid in the abdomen, I suspect heterotopic with ruptured ectopic notably clinically unlikely. UTI and pyelonephritis certainly of concern as well. We will evaluate for these etiologies, monitor closely and reassess. 3:13 PM Patient's laboratory workup has returned, after 2 L of IV fluids heart rate has come down from the 170s to the 140s. Blood pressure remains between the 90 systolic and 110 systolic. Laboratory workup shows white count of 11.8, left shift, 8% bands, with a unremarkable lactate, procalcitonin greater than 190. VBG is stable. Electrolytes stable, renal function normal. proBNP only slightly elevated at 431. Beta-hCG is , 59,824. urinalysis shows moderate leuk esterase but negative nitrates. Concern for potential UTI. With the patient's elevated heart rate elevated procalcitonin, we did start Zosyn antibiotics for broad coverage. The patient's D-dimer was notably high at 4000. We discussed the risks and benefits of radiation exposure to the fetus and the patient, and through shared decision making process patient consented to move forward with CT angiography to rule out PE secondary to her chest pain and shortness of breath. CT scan shows no evidence of pneumonia, pulmonary emboli, or other significant abnormality. Uncertain as to the exact cause, but with the patient's elevated procalcitonin and the bandemia, I am concerned for severe sepsis. Patient also began having contractions within the past hour, obstetrics did come and evaluate the patient, Dr. Lindsay does confirm that the cervix is closed, and she is having contractions that she feels every 4 to 5 minutes. With the patient's illness severity level, we do not feel that an. She would be the most appropriate facility for her, in addition to this she is established at [facility] /maternal care. I did contact Dr. Dias of [facility] obstetrics gynecology, she accepts the patient for transfer. Patient will be transferred for further definitive management, obstetrics monitoring, and medicine consultation and evaluation. I have extensively reviewed the treatment plan with the patient. I have addressed all patient concerns at this time. I have also discussed the plan with the admitting physician and they agree with the current assessment and plan and have agreed to assume responsibility for the patient. All parties demonstrate verbal understanding and agreement with our assessment and plan at this time. The documentation in this chart was dictated using [employer] dictation software. Please excuse any dictation errors. At time of transfer the patient was reassessed and continued to demonstrate No signs of acute respiratory distress requiring intubation, hemodynamic instability requiring pressor support, or rapidly declining mental status. FINDINGS: Pulmonary arteries: Suboptimal opacification of the segmental and subsegmental pulmonary arteries; attenuation of pulmonary artery and aorta are similar (pulmonary artery 375 Hounsfield units aorta 345 Hounsfield units.. Additionally assessment limited by streak artifact No central pulmonary thromboemboli. There is probable prominence of the main pulmonary artery, measuring up to 3.0 cm in transverse diameter. Although this is within normal size limits, it appears mildly enlarged relative to he adjacent ascending aorta. Probable fullness of the main pulmonary artery; it measures 3 cm transverse which is not enlarged however, it is larger than the adjacent aortic segment Aorta: See Pulmonary arteries finding. Lungs: No consolidation. Pleural spaces: Unremarkable. No pneumothorax. No pleural effusion. Heart: Unremarkable. No cardiomegaly. No pericardial effusion. Esophagus: Small hiatal hernia mildly patulous esophagus and possible mild distal esophageal wall thickening. Lymph nodes: Unremarkable. No enlarged lymph nodes. Bones/joints: Unremarkable. No acute fracture. Soft tissues: Unremarkable. IMPRESSION: 1. No central pulmonary thromboemboli. Segmental and subsegmental pulmonary arteries suboptimally opacified. If persistent concern for pulmonary emboli, consider a low threshold for repeat or additional imaging 2. Top-normal main pulmonary artery, measuring up to 3.0 cm in transverse diameter. Additionally, the pulmonary artery caliber is larger than the adjacent segment of the ascending aorta. This finding may be a normal variant but could also suggest early pulmonary arterial hypertension, particularly if there are supporting clinical or imaging features. Correlation with clinical history and, if indicated, echocardiography is recommended. 3. No consolidation. 4. Small hiatal hernia mildly patulous esophagus and possible mild distal esophageal wall thickening. Correlate clinically for esophagitis. Thank you for allowing us to participate in the care of your patient. Dictated and Authenticated by: Ewelina Lockhart DO 08/16/2024 2:43 PM Eastern Time ([place] & Critical Care Time Critical Care Time Critical Care Time: Yes Total Critical Care Time: 75 Attestation: Upon my evaluation, this patient had a high probability of imminent or life-threatening deterioration, which required my direct attention, intervention, and personal management. I have personally provided 45 minutes of critical care time exclusive of time spent on separately billable procedures. Time includes review of laboratory data, radiology results, discussion with consultants, and monitoring for potential decompensation. Interventions were performed as documented. 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 On IEP. 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 Pectus excavatum (Chronic 12/26/11) no interventions necessary [place] [facility] Frequent headaches (Chronic 09/10/14) [place] [facility] [place] (attention deficit hyperactivity disorder), combined type (Chronic 09/07/14) diagnosed by [place] Development [place] [facility] [place] concerta Medical History (Updated 08/16/24 @ 15:19 by Mukesh Huber DO) Insomnia (02/05/17) Allergic rhinitis Custody issue IN CUSTODY OF SINCE 2 MONTHS OF AGE- PARENTS NOT INVOLVED School problem IEP updated 05/11/20-05/10/21: Counseling services once a week 45 min; Math intervention 4 times a week; reading intervention twice a week; updated IEP in chart as of 07/21/20 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 Allergy to shellfish Social History (Updated 05/23/24 @ 10:39 by Annel Morgan RN) Smoking/Tobacco Use Status: Never Second Hand Exposure: Yes (outside only, no indoor smoking, grandfather is only smoker in house) Smoking risk assessment performed?: Yes Alcohol Intake: former Drug use: Never Substance use type: does not use Adopted: Yes (in the custody of grandparents due to DCF involvement, parents not involved) Caregiver/Support person: No Foster care: No Household members: other Details: grandparents Housing: house Communication Needs: None and Corrective Lenses Pets and animals: Yes (2 dogs, 1 cat) Pets and animals: cat(s) and dog(s) Sexually active: No Do you think of yourself as: straight/heterosexual Current gender identity: male Do you feel safe at home: Yes Do you feel safe in your relationship?: Yes Additional Social history: GRANDMOTHER WITH CUSTODY SINCE 2 MONTHS OF AGE- PARENTS HOMELESS AND NEGLECT History History 1 Para 0 Hx # Term Pregnancies 0 Multiple births 0 Hx # Pregnancies 0 Ectopic pregnancies 0 AB induced 0 Hx Number of Living Children 0 AB spontaneous 0 POCUS Exam (ED) Efast Exam DATE OF EXAM: 08/16/24 TIME OF EXAM: 11:19 PROVIDER THAT PEFORMED THE STUDY: Mukesh Huber IS THIS A REPEAT EXAM DURING THIS ENCOUNTER: no REASON FOR EXAM: Abdominal pain, Chest pain and Tachycardia VISUALIZED STRUCTURES: Hepatorneal space, Pelvis, Pericardium, Perisplenic space, Pleural space/left and Pleural space/right PERTINENT FINDINGS/IMPRESSION: no apparent abnormalities and other (Patient demonstrates B-lines and mild consolidation in the right lung field. No evidence of right-sided heart dilatation.) impression: Right-sided pneumonia ; no apparent free fluid, lung sliding, left side, lung sliding,right side, no pericardial effusion, no pleural effusion on the left side, no pleural effusion on the right side, no pneumothorax on left side and no pneumothorax on right side Limited Transthoracic Echo: Exam complete Limited Abdominal Exam: Exam complete Limited Retroperitoneal Exam: Exam complete Limited OB Exam DATE OF EXAM:: 08/16/24 TIME OF EXAM:: 11:23 PROVIDER THAT PERFORMED THE STUDY: Mukesh Huber IS THIS A REPEAT EXAM DURING THIS ENCOUNTER: No Type of Exam: Pelvic OB Trans Abdominal (abdominal pain) REASON FOR EXAM: Abdominal Pain VISUALIZED STRUCTURES: Uterus and Other (Fetus) structure: heart PERTINENT FINDINGS/IMPRESSION: cardiac activity and No apparent abnormalities Exam Complete. DIFFERENTAL DIAGNOSES: Heart rate 160
[2024-08-16 11:27] LABS: D-Dimer 4112 ng/mlFEU (<500)
[2024-08-16 11:34] LABS: TSH (W/Ref FT4) 0.93 uIU/mL (0.36-3.74)
[2024-08-16 11:45] LABS: Absolute Basophil Count 0.35 10^3/uL (0.0-0.2); Absolute Eosinophil Count 0.12 10^3/uL (0.0-0.7); Absolute Lymphocyte Count 0.71 10^3/uL (1.2-3.4); Absolute Monocyte Count 0.35 10^3/uL (0.1-0.8); Absolute Neutrophil Count 10.27 10^3/uL (1.2-6.7); Bands % 8 %
[2024-08-16 11:46] LABS: Diff Comment Manual Differential; RBC Morphology Normal
[2024-08-16 11:47] LABS: ALT 34 U/L (14-59); AST 56 U/L (15-37); Albumin 2.5 g/dL (3.4-5.0); Alkaline Phosphatase 153 U/L (46-116); Anion Gap 12.2 mmol/L (3-11); BUN 15 mg/dL (7-18); Bilirubin, Total 0.6 mg/dL (0.2-1.0); CO2 22.8 mmol/L (21.0-32.0); CREATININE 0.9 mg/dL (0.55-1.02); Calcium 9.2 mg/dL (8.5-10.1); Chloride 100 mmol/L (98-107); Estimated GFR 93.86 (mL/min/1.73m2); Glucose 115 mg/dL (74-106); NT-proBNP 431 pg/mL (<300); Potassium 4.5 mmol/L (3.5-5.1); Sodium 135 mmol/L (136-145); Total Protein 6.5 g/dL (6.4-8.2)
[2024-08-16 11:49] LABS: HCG Quant, Pregnancy 59824 mIU/mL (1-3); Troponin I < 4 ng/L (<or=51)
--- NOTE | 2024-08-16 12:15 | DI.CT_ITS ---
Exam(s) CT CHEST PE CTA EXAM: CT CHEST PE CTA CLINICAL HISTORY: CP, SOB, Pneumonia, Ddimer 4k. TECHNIQUE: Imaging Protocol: Axial CT angiography was performed with multi- slice acquisition and multi-planar reconstructions as well as axial, coronal and sagittal MIP reconstructions. Computer aided detection (CAD) was utilized. CONTRAST MATERIAL: Intravenous: Omnipaque 350 Contrast volume:60 ml COMPARISON: CR XR CHEST 2V PA LATERAL from 10/19/2023 FINDINGS: Pulmonary Arteries: No evidence of filling defect to suggest pulmonary emboli. The main pulmonary artery is prominent, measuring 3.2 cm. Mediastinum and Elli: No dominant adenopathy or fluid collection. Pulmonary parenchyma: No consolidation or dominant measurable mass. Pleura: No effusion or pneumothorax. Heart: The heart is not dilated. No coronary artery calcifications are seen. Aorta: Thoracic aorta non-dilated. No dissection. Upper abdomen: The liver appears enlarged but is not fully included on the exam. Spleen is normal in size. Bones: Unremarkable for age. Tubes, Catheters, and Lines: None Soft tissues: Unremarkable. IMPRESSION: No evidence of pulmonary embolism. Dilated main pulmonary artery. Findings could be related to pulmonary hypertension. The lungs are clear. Hepatomegaly. The preliminary [facility] report was reviewed. RADIATION DOSE DELIVERED: Total DLP DATA REPOSITORY: All CT scans at this facility are submitted to the National Radiology Data Registry (NRDR) Dose Index Registry (DIR) with the [employer] (ACR). RADIATION OPTIMIZATION: All CT scans at this facility use at least one of these dose optimization techniques: automated exposure control; mA and/or kV adjustment per patient size (includes targeted exams where dose is matched to clinical indication); or iterative reconstruction.
[2024-08-16 12:18] LABS: COVID-19 PCR Negative (Negative); Influenza A PCR Negative (Negative); Influenza B PCR Negative (Negative); RSV PCR Negative (Negative)
[2024-08-16 12:27] LABS: Troponin I < 4 ng/L (<or=51)
[2024-08-16 12:33] LABS: Source Nasopharynx
[2024-08-16 12:33] LABS: PTT Activated 27.9 sec (20.6-30.2); Prothrombin Time 10.3 sec (9.1-11.1)
[2024-08-16] MEDS: Omnipaque 350 MG/ML 100 ML BTL 60 ML IJ (12:55)
[2024-08-16] MEDS: Normal Saline - Diluent 50 ML VIAL IJ (12:57)
[2024-08-16] MEDS: Normal Saline 1,000 ML 1000 ML IV (13:25)
[2024-08-16] MEDS: ACETAMINOPHEN 1,000 MG/100 ML BAG 400 MG (13:25)
[2024-08-16 14:20] LABS: Procalcitonin > 190.00 ng/mL
--- NOTE | 2024-08-16 14:44 | DI.VRAD_ITS ---
Addendum created by Ewelina Lockhart DO on 08/16/2024 2:48:29 PM EDT: The findings were verbally communicated via telephone conference at 2:48 PM EDT on 08/16/2024 with BERNICE JOAQUIN. The findings were acknowledged and understood. Initial report created on 08/16/2024 2:43:32 PM EDT: PROCEDURE INFORMATION: Exam: CTA Chest With Contrast Exam date and time: 08/16/2024 12:51 PM Age: 18 years old Clinical indication: Condition or disease; Other: Cp, SOB, pneumonia, ddimer 4k TECHNIQUE: Imaging protocol: Computed tomographic angiography of the chest with contrast. Exam focused on the arteries. 3D rendering (Not supervised by radiologist): MIP and/or 3D reconstructed images were created by the technologist. Radiation optimization: All CT scans at this facility use at least one of these dose optimization techniques: automated exposure control; mA and/or kV adjustment per patient size (includes targeted exams where dose is matched to clinical indication); or iterative reconstruction. Contrast material: OMNI 350; Contrast volume: 60 ml; Contrast route: INTRAVENOUS (IV); COMPARISON: CR XR CHEST 2V PA LATERAL 10/19/2023 5:14 PM FINDINGS: Pulmonary arteries: Suboptimal opacification of the segmental and subsegmental pulmonary arteries; attenuation of pulmonary artery and aorta are similar (pulmonary artery 375 Hounsfield units aorta 345 Hounsfield units.. Additionally assessment limited by streak artifact No central pulmonary thromboemboli. There is probable prominence of the main pulmonary artery, measuring up to 3.0 cm in transverse diameter. Although this is within normal size limits, it appears mildly enlarged relative to the adjacent ascending aorta. Probable fullness of the main pulmonary artery; it measures 3 cm transverse which is not enlarged however, it is larger than the adjacent aortic segment Aorta: See Pulmonary arteries finding. Lungs: No consolidation. Pleural spaces: Unremarkable. No pneumothorax. No pleural effusion. Heart: Unremarkable. No cardiomegaly. No pericardial effusion. Esophagus: Small hiatal hernia mildly patulous esophagus and possible mild distal esophageal wall thickening. Lymph nodes: Unremarkable. No enlarged lymph nodes. Bones/joints: Unremarkable. No acute fracture. Soft tissues: Unremarkable. IMPRESSION: 1. No central pulmonary thromboemboli. Segmental and subsegmental pulmonary arteries suboptimally opacified. If persistent concern for pulmonary emboli, consider a low threshold for repeat or additional imaging 2. Top-normal main pulmonary artery, measuring up to 3.0 cm in transverse diameter. Additionally, the pulmonary artery caliber is larger than the adjacent segment of the ascending aorta. This finding may be a normal variant but could also suggest early pulmonary arterial hypertension, particularly if there are supporting clinical or imaging features. Correlation with clinical history and, if indicated, echocardiography is recommended. 3. No consolidation. 4. Small hiatal hernia mildly patulous esophagus and possible mild distal esophageal wall thickening. Correlate clinically for esophagitis. Dictated and Authenticated by: Ewelina Lockhart MD. Orderin Mayo Mayorga MD
[2024-08-16] MEDS: PIPERACILLIN/TAZO 3.375 GM in Normal Saline 50 ML IVPB (14:48)
[2024-08-16 14:51] LABS: Bilirubin Negative (Negative); Blood Trace-intact (Negative); Clarity Sl Cloudy (Clear); Glucose Negative (Negative); Ketones 15 mg/dL (Negative); Leukocyte Esterase Moderate (Negative); Nitrite Negative (Negative); Urobilinogen 0.2 mg/dL (Up to 0.2); pH 6.5 (5-8)
--- NOTE | 2024-08-16 15:15 | OBCE_ITS ---
Date of service: 08/16/24 Time of Service: 15:15 Assessment and Plan Assessment and plan (1) : Status: Acute Assessment and plan: G1, P0 at 29 weeks. Contractions without cervical dilation at this point. (2) Uterine contractions: Status: Acute Assessment and plan: Uterine contractions without cervical change. (3) Dehydration: Status: Acute Assessment and plan: IV hydration, Moitor I&O vital signs (4) Severe sepsis: Status: Acute Assessment and plan: Cough, shortness of breath, abnormal laboratory studies, suspect sepsis. Patient received Zosyn. Etiology uncertain. Agree with transfer to tertiary care center for both maternal- medicine support, possibility of delivery, and specialty care. History of Present Illness History of Present Illness Chief Complaint: Cough, shortness of breath, fever Narrative: Patient is a 18-year-old female primigravida at approximately 29 weeks gestation who has been seen primarily by our midwifery service. 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 She had been discontinued from canakinumab while . She presented to the emergency department with 2 to 3 days of cough, that has become progressively worsening. Her cough has been nonproductive. She also reports fevers at home. She has had some intermittent irregular abdominal cramping. This occasionally comes and goes. She denies bleeding or leaking fluid. Baby has been moving and active. On the monitor today, heart tones are 140s without evidence of tachycardia she does have accelerations that are 10 x 10. She is having irregular contractions which palpate typically mild with an occasional moderate contraction. Cervical exam is posterior, closed, soft, 30% effaced. In her workup and evaluation in the emergency department she was noted to have maternal tachycardia, fever, elevated respiratory rate with a normal blood pressure of 110s to 120s over 60s. Her pulse ox is 98% on room air. In her laboratory workup and evaluation, she does have a slight elevation in white blood cell count at 11.8 with a hemoglobin of 9.6 and an absolute neutrophil count of 10.27. She does have an elevation in D-dimer mildly elevated AST at 56 and a procalcitonin of greater than 190. In light of these findings, she was given broad-spectrum antibiotic coverage with Zosyn with a working diagnosis of possible sepsis. CTA shows no evidence of pneumonia pulmonary emboli or other significant abnormalities. In light of her maternal clinical potential instability in the face of 29-week gestation, appropriate transfer would be to [facility] for maternal- medicine. She has been seen by them in the past. Consults Consult date: 08/16/24 Requesting physician: Mukesh Huber Review of Systems Narrative: Intermittent abdominal pain, cough, shortness of breath, fever Constitutional Constitutional: Reports as per HPI Eyes Eyes: Reports system reviewed and no additional complaints, except as documented ENT Ears, Nose, Mouth, and Throat: Reports system reviewed and no additional complaints, except as documented Cardiovascular Cardiovascular: Reports system reviewed and no additional complaints, except as documented and Reports dyspnea Respiratory Respiratory: Reports as per HPI, Reports cough, Reports pain with cough and Reports dyspnea Gastrointestinal Gastrointestinal: Reports as per HPI Comments: Abdominal discomfort Genitourinary Genitourinary: Reports system reviewed and no additional complaints, except as documented Neurologic Neurologic: Reports system reviewed and no additional complaints, except as documented PFSH All Active Problems (Updated 08/16/24 @ 15:19 by Mukesh Huber DO) Uterine contractions (Acute) Dehydration (Acute) Severe sepsis (Acute) Chest pain (Acute) Anemia affecting (Acute) (Acute) Chronic hypertension (Acute) Migraine (Chronic) Stopped Topomax with +UPT Depression (Chronic) Asthma (Chronic 05/24/12) 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 On IEP. 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 Pectus excavatum (Chronic 12/26/11) [place] [facility] [place] Frequent headaches (Chronic 09/10/14) [place] [facility] [place] ADHD (attention deficit hyperactivity disorder), combined type (Chronic 09/07/14) [place] Development [place] [facility] [place] concerta Medical History (Updated 08/16/24 @ 15:19 by Mukesh Huber DO) Insomnia (02/05/17) Allergic rhinitis Custody issue IN CUSTODY OF SINCE 2 MONTHS OF AGE- PARENTS NOT INVOLVED School problem IEP updated 05/11/20-05/10/21: Counseling services once a week 45 min; Math intervention 4 times a week; reading intervention twice a week; updated IEP in chart as of 07/21/20 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 Allergy to shellfish Social History (Updated 05/23/24 @ 10:39 by Annel Morgan RN) Smoking/Tobacco Use Status: Never Second Hand Exposure: Yes (outside only, no indoor smoking, grandfather is only smoker in house) Smoking risk assessment performed?: Yes Alcohol Intake: former Drug use: Never Substance use type: does not use Adopted: Yes (in the custody of grandparents due to DCF involvement, parents not involved) Caregiver/Support person: No Foster care: No Household members: other Details: grandparents Housing: house Communication Needs: None and Corrective Lenses Pets and animals: Yes (2 dogs, 1 cat) Pets and animals: cat(s) and dog(s) Sexually active: No Do you think of yourself as: straight/heterosexual Current gender identity: male Do you feel safe at home: Yes Do you feel safe in your relationship?: Yes Additional Social history: GRANDMOTHER WITH CUSTODY SINCE 2 MONTHS OF AGE- PARENTS HOMELESS AND NEGLECT History History 2 1 Para 0 Hx # Term Pregnancies 0 Multiple births 0 Hx # Pregnancies 0 Ectopic pregnancies 0 AB induced 0 Hx Number of Living Children 0 AB spontaneous 0 Exam Const General: cooperative, in distress, anxious and ill appearing Nutritional Appearance: average body habitus HENMT Head: normal to inspection Eyes General: appearance normal, both eyes and all related structures Neck Neck: normal visual inspection Resp Effort & Inspection: normal respiratory effort and tachypneic Cardio Rate: tachycardic Rhythm: regular rhythm GI Inspection: other Palpation: soft, not firm and no guarding Other: Gravid uterus approximately 29 weeks. Occasional irregular contractions, palpating typically mild on occasional moderate. Cervix closed, slightly soft, posterior, 30%. Results Last Vital Signs Temp 99.4 F 08/16/24 14:22 Pulse 143 H 08/16/24 14:22 Resp 29 H 08/16/24 14:22 BP 122/64 08/16/24 14:22 Pulse Ox 97 08/16/24 14:22 Labs 08/16/24 10:34 08/16/24 10:34 Labs: Laboratory Results - last 24 hr 08/16/24 08/16/24 08/16/24 10:34 10:53 11:32 WBC 11.80 H RBC 3.19 L Hgb 9.6 L Hct 29.4 L MCV 92 MCH 30.1 MCHC 32.7 RDW 13.5 Plt Count 165 MPV 11.0 Immature Gran % See Differential Neutrophils % 79.0 Band Neutrophils % 8 Lymphocytes % 6.0 Monocytes % 3.0 Eosinophils % 1.0 Basophils % 3.0 Nucleated RBC % 0.0 Absolute Neutrophils 10.27 H Absolute Lymphocytes 0.71 L Absolute Monocytes 0.35 Absolute Eosinophils 0.12 Absolute Basophils 0.35 H RBC Morphology Normal PT 10.3 INR 1.0 APTT 27.9 D-Dimer 4112 H VBG pH 7.37 VBG pCO2 38 L VBG pO2 38 VBG HCO3 22 L VBG Total CO2 21 L VBG O2 Saturation 74 VBG Base Excess -3 L Sodium 135 L Potassium 4.5 Chloride 100 Carbon Dioxide 22.8 Anion Gap 12.2 H BUN 15 Creatinine 0.9 Est GFR (CKD-EPI 2020) 93.86 Glucose 115 H Calcium 9.2 Total Bilirubin 0.6 AST 56 H ALT 34 Alkaline Phosphatase 153 H Troponin I < 4 < 4 NT-Pro-B Natriuret Pep 431 H Total Protein 6.5 Albumin 2.5 L Procalcitonin > 190.00 TSH 0.93 Beta HCG, Quant 43591 H Urine Color Urine Clarity Urine pH Ur Specific [place] Urine Protein Urine Ketones Urine Blood Urine Nitrite Urine Bilirubin Urine Urobilinogen Ur Leukocyte Esterase Urine Glucose COVID-19 Source SARS-CoV-2 (PCR) Influenza Type A (PCR) Influenza Type B (PCR) RSV (PCR) ABO/Rh O Positive Antibody Screen NEGATIVE 08/16/24 08/16/24 08/16/24 11:34 13:47 13:50 WBC RBC Hgb Hct MCV MCH MCHC RDW Plt Count MPV Immature Gran % Neutrophils % Band Neutrophils % Lymphocytes % Monocytes % Eosinophils % Basophils % Nucleated RBC % Absolute Neutrophils Absolute Lymphocytes Absolute Monocytes Absolute Eosinophils Absolute Basophils RBC Morphology PT INR APTT D-Dimer VBG pH VBG pCO2 VBG pO2 VBG HCO3 VBG Total CO2 VBG O2 Saturation VBG Base Excess Sodium Potassium Chloride Carbon Dioxide Anion Gap BUN Creatinine Est GFR (CKD-EPI 2020) Glucose Calcium Total Bilirubin AST ALT Alkaline Phosphatase Troponin I Cancelled NT-Pro-B Natriuret Pep Total Protein Albumin Procalcitonin TSH Beta HCG, Quant Urine Color Yellow Urine Clarity Sl Cloudy Urine pH 6.5 Ur Specific [place] 1.010 Urine Protein 100 H Urine Ketones 15 H Urine Blood Trace-intact H Urine Nitrite Negative Urine Bilirubin Negative Urine Urobilinogen 0.2 Ur Leukocyte Esterase Moderate H Urine Glucose Negative COVID-19 Source Nasopharynx SARS-CoV-2 (PCR) Negative Influenza Type A (PCR) Negative Influenza Type B (PCR) Negative RSV (PCR) Negative ABO/Rh Antibody Screen
--- NOTE | 2024-08-16 15:39 | W.OBNST ---
Date of service: 08/16/24 Time of Service: 15:40 NST Evaluation Reason for NST Reasons for Nonstress Test: LABOR ( contractions) and OTHER, SEE COMMENT (Suspect sepsis) Test and Monitor Explained Test/Monitor Explained: Test Explained Vital Signs Blood Pressure: 105/42 Pulse: 140 Temperature: 99.4 F NST Information Date on Monitor: 08/16/24 Time on Monitor: 03:10 Date off Monitor: 08/16/24 Time off Monitor: 03:35 Total Time on Monitor: 25 Contraction Frequency: 4 NST Evaluation Patient States Movement: Present FHR Baseline: 140 Variability: Moderate 6-25 bpm Accelerations: 15x15 Decelerations: None NST Results: Reactive Note Ultrasound Done: N/A. NST Note Note: Category 1, reactive nonstress test with occasional contractions. Cervix is closed, soft, posterior, 30% effaced. Patient is en route to transfer to [facility] for ongoing care, maternal- medicine, possibility of delivery at 29 weeks. NST Reviewed and Verified by: Sumi Mcdowell
[2024-08-16 15:42] LABS: Bacteria Many HPF (Negative); C & S Indicated? Yes; Casts Negative LPF (Negative); Crystals Negative HPF (Negative); Epithelial Cells Few HPF (Negative); Mucus Negative (Negative); RBC 0-2 HPF (0-2); WBC 20-50 HPF (0-5)
== END 2024-08-16 16:20 | disposition short-term general hospital (02) ==
PROVIDERS: Emergency Provider Student in an Organized Health Care Education/Training Program; PCP Pediatrics
DX: O60.03 Preterm labor without delivery, third trimester; O98.813 Other maternal infectious and parasitic diseases complicating pregnancy, third trimester; A41.9 Sepsis, unspecified organism; R65.20 Severe sepsis without septic shock; O26.893 Other specified pregnancy related conditions, third trimester; E86.0 Dehydration; O99.413 Diseases of the circulatory system complicating pregnancy, third trimester; R07.9 Chest pain, unspecified; O10.013 Pre-existing essential hypertension complicating pregnancy, third trimester; Z3A.29 29 weeks gestation of pregnancy
CPT/HCPCS: 36415; 71275; 76604; 76705; 76815; 76857; 80053; 82805; 84145; 86850; 86900; 86901; 87040; 87077; 87637; 93005; 96361; 96365; 99285; 59025; 81003; 81015; 83880; 84443; 84484; 84702; 85025; 85379; 85610; 85730; 87086; 87186; 93010; J0131; J2543; J3490

== ENCOUNTER 2024-09-12 23:48 | Outpatient (CLI) | payer MEDICAID, SELFPAY ==
[2024-09-12 23:40] VITALS: BP 135/85; PULSE 100
[2024-09-12 23:46] VITALS: BP 135/85; PULSE 100; RESP 20; TEMP 36.8; O2SAT 98
--- NOTE | 2024-09-13 00:44 | PDOC.NST_ITS ---
Date of service: 09/13/24 Time of Service: 00:44 NST Evaluation Reason for NST Reasons for Nonstress Test: LABOR Gestational Age Gestational Age in Weeks and Days: 33 Weeks and 3Days NST Evaluation Patient States Movement: Present FHR Baseline: 130 Variability: Moderate 6-25 bpm Accelerations: 15x15 Decelerations: None NST Results: Reactive Note Ultrasound Done: N/A. NST Note NST Reviewed and Verified by: Liliana London OB - H&P; HPI Antepartum History of Present Illness Chief complaint: Labor Narrative: [f_Reg Name Full] is a [f_Reg Age Current] year old female History of Present Narrative: Deidra is a 18 year old at 33 week 3 days gestational age who presents to L&D for evaluation of abdominal pain. She describes that at 2200 while laying in bed, she developed a sharp pain in her RUQ that radiated to her lower abdomen and back. The pain was constant but also had waxing and waning elements. Since arrival on the unit, the pain has been less (at its peak it lasted for about 1 hour).There was no precipitating factor prior to onset of pain. She denies abdominal trauma. She is joined for this visit by her step-mother and friend Sylvester (which whom she is dating but not sexually active). course is notable for: 1. Autoimmune disorder- familial cold autoinflammatory syndrome (FCAS) 2. Stage 1 HTN 3. BMI 17 4. Anemia Of note, Xim[facility] 08/16/[facility], diagnosed with pyelonephritis for which she was treated with Zosyn and continues daily prophylaxis with Keflex. ROS: Constitutional: generally feels well, denies fever / aches / chills GI: denies constipation / diarrhea / N / V Urinary: denies hematuria / dysuria OB: good FM, denies LOF / VB, + BH contractions about every hour, possibly more often though difficult to time OB - H&P: Exam Physical Exam Vital signs: Temp Pulse Resp BP Pulse Ox 98.2 F 100 H 20 135/85 98 09/12/24 23:46 09/12/24 23:46 09/12/24 23:46 09/12/24 23:46 09/12/24 23:46 Constitutional: well-nourished, well-developed, alert Respiratory: effort is unlabored Gastrointestinal: non-tender to palpation, tone normal without rigidity or guarding, no masses, no hepatomegaly, liver non-tender to palpation, spleen not palpable, no hernias (though a 2 FB diastasis recti is appreciated in the upper abdomen) Musculoskeletal: no CVAT Genitourinary: - external: no inflammation, no lesions - vagina: normal vault, no abnormal discharge, no inflammatory lesions, no masses - cervix: appearance healthy, no lesions, non-tender, no discharge, no bleeding, SVE: closed / long / soft, vertex is -1 ( SVE at 0055) - uterus: gravid, normal shape, contractions q 5 minutes mild to palpation (difficult to trace on tocodynamometer) - anus: no lesions - perineum: within normal limits Skin and Subcutaneous Tissue: no rashes, no lesions, no areas of discoloration A: IUP at 33 weeks 3 days contractions Reassuring surveillance P: - Continuous and uterine monitoring - Vaginal GC/CT, fFN, UA+C and GBS obtained --- UA is reassuring against UTI or dehydration, and fFN is negative - Discussed with Deidra and her family that is it very reassuring against PTL to have a negative fFN. We reviewed that some parturients will have spells of contractions, particularly in the evening, that do not lead to labor, though contractions can be an early indicator of infection or urinary problem. There is no clinical evidence for pyelonephritis or UTI. Her abdomen is NT so infection is unlikely. There has not been any abdominal trauma. We discussed that it would be reasonable to return home, or to be observed over the next 4 hours. She prefers observation. - Update given to Dr. Ramírez - LUZ MARIA repeated at 1 hour interval, remains closed, though fetus is now ballotable. Will reassess in 3-4 hours.
--- NOTE | 2024-09-13 00:46 | HPE_ITS ---
Date of service: 09/13/24 Time of Service: 00:46 OB-HPI Labor/Delivery History of Present Illness Reason for Visit: Labor CASSIA Calculator Estimated Delivery Date Method Current WG Current Estimate 10/28/24 Ultrasound #1 33w 4d Other Estimates 10/17/24 LMP (Uncertain) 35w 1d History of Present Expected Delivery Route/Plan - CNM FOB - Tomás Garnica (first child; not together but involved) - [facility] [place] team: Tomás and step Mom Sylvia Specific Issues/Plan 1. 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 20wk US at [facility] normal, post placenta, 3VC, 1b. MFM consult: possible risk for flare , tylenol prn, FU with rheumatology if unrelenting fever/flare 1c. on 08/17 seen in ED & transferred to [facility] w/concern for sepsis and FCAS flare-up, dx'ed pylonephritis 1d. Keflex 250 mg QD recommended for the remainder of the . 2. Migraines, stopped Topamax with +UPT, relieved by tylenol and takes magnesium 500mg 3. Stage 1 HTN, no meds. Baseline CMP/CBC=nml, pr/cr 0.15, 3a. Consider 32wk growth US 3b. MFM consult: defer AP testing if BPs remain stage 1 HTN, delivery 40- 41wks 4. BMI 17, discussed protein needs and recommended weight gain 35-45lbs 5. 5 P+, initial UDS negative, 28 wk UDS=negative 6. cfDNA low risk female, CF Neg, AFP- undecided. 7. Anemia - Hgb 10.8- Discussed. Taking gummies. 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 On IEP. 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 Pectus excavatum (Chronic 12/26/11) no interventions necessary per [facility] Surgery Frequent headaches (Chronic 09/10/14) Neurology at [facility] [place] ADHD (attention deficit hyperactivity disorder), combined type (Chronic 09/07/14) diagnosed by Child Development at [facility] [place]- started concerta Medical History (Updated 08/19/24 @ 08:37 by Ashley Castaneda) Chest pain Parosmia Severe sepsis transferred & treated at [facility] [place] Dehydration Uterine contractions Insomnia (02/05/17) Allergic rhinitis Custody issue IN CUSTODY OF [facility] SINCE 2 MONTHS OF AGE- PARENTS NOT INVOLVED School problem IEP updated 05/11/20-05/10/21: Counseling services once a week 45 min; Math intervention 4 times a week; reading intervention twice a week; updated IEP in chart as of 07/21/20 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 Allergy to shellfish Social History (Updated 05/23/24 @ 10:39 by Annel Morgan RN) Smoking/Tobacco Use Status: Never Second Hand Exposure: Yes (outside only, no indoor smoking, grandfather is only smoker in house) Smoking risk assessment performed?: Yes Alcohol Intake: former Drug use: Never Substance use type: does not use Adopted: Yes (in the custody of grandparents due to DCF involvement, parents not involved) Caregiver/Support person: No Foster care: No Household members: other Details: grandparents Housing: house Communication Needs: None and Corrective Lenses Pets and animals: Yes (2 dogs, 1 cat) Pets and animals: cat(s) and dog(s) Sexually active: No Do you think of yourself as: straight/heterosexual Current gender identity: male Do you feel safe at home: Yes Do you feel safe in your relationship?: Yes Additional Social history: GRANDMOTHER WITH CUSTODY SINCE 2 MONTHS OF AGE- PARENTS HOMELESS AND NEGLECT History History 1 Para 0 Hx # Term Pregnancies 0 Multiple births 0 Hx # Pregnancies 0 Ectopic pregnancies 0 AB induced 0 Hx Number of Living Children 0 AB spontaneous 0 Meds Allergies and Home Medications Allergies Allergy/AdvReac Type Severity Reaction Status Date / Time bee venom protein (honey bee) Allergy Severe PROBLEMS Verified 09/10/24 14:16 BREATHING/ HIVES honey Allergy Severe Skin Rash Verified 09/10/24 14:16 davis Allergy Mild Skin Rash Verified 09/10/24 14:16 cow dander Allergy Itching Verified 09/10/24 14:16 grass pollen Allergy Hives Verified 09/10/24 14:16 perfume AdvReac Mild watery Verified 09/10/24 14:16 eyes, runny nose, face gets blotchy pollen extracts AdvReac Mild watery Verified 09/10/24 14:16 eyes, runny nose, face gets blotchy cologne Allergy Mild Headache Uncoded 09/10/24 14:16 hay Allergy Mild Skin Rash Uncoded 09/10/24 14:16 Haile] Allergy Mild rash Uncoded 09/10/24 14:16 sun Allergy Mild skin Uncoded 09/10/24 14:16 blotches shellfish Allergy Unknown Unknown Uncoded 09/10/24 14:16 Halloween makeup AdvReac Skin Rash Uncoded 09/10/24 14:16 Home Medications ?Medication ?Instructions ?Recorded ?Confirmed ?Type inhalational spacing device (Space ##2 12/17/20 Rx Chamber Plus) chlorhexidine gluconate 0.12 % 15 ml mucous membrane B ID #118 mL 05/24/21 09/10/24 Rx mouthwash (Peridex) Symbicort 80 mcg-4.5 mcg/actuation See Rx Instructions .Route 09/19/23 09/10/24 Rx HFA aerosol inhaler .COMPLEX #10.2 grams (budesonide-formoterol) cetirizine 10 mg tablet 10 mg PO DAILY #90 tab-caps 09/19/23 09/10/24 Rx famotidine 10 mg tablet 10 mg PO BID #60 tabs 09/10/24 Rx albuterol sulfate 90 mcg/actuation 2 puff inhalation Q 6H 03/05/24 09/10/24 Histo ry aerosol inhaler canakinumab (PF) 150 mg/mL 150 mg subcut Q8W 04/16/24 09/10/24 History subcutaneous solution (Ilaris (PF)) Held on 08/16/24. Instructions: Changed by Provider vitamin no.180-ferrous 1 tab PO DAILY #90 tab s 07/09/24 09/10/24 Rx fumarate 27 mg-folic acid 1 mg tablet ( Plus Vitamin-Mineral) epinephrine 0.3 mg/0.3 mL 0.3 mg (0.3 mL) IM ONCE ##1 07/11/24 09/10/24 Rx injection, auto-injector (EpiPen 2-Wellington) cephalexin 250 mg capsule 250 mg PO DAILY #30 caps 09/10/24 Rx ferrous sulfate 325 mg (65 mg 325 mg PO DAILY #30 tabs 09/02/24 09/10/24 Rx iron) tablet (Feosol) Exam Physical Exam Vital signs: Temp Pulse Resp BP Pulse Ox 98.2 F 100 H 20 135/85 98 09/12/24 23:46 09/12/24 23:46 09/12/24 23:46 09/12/24 23:46 09/12/24 23:46 Detailed Labor and Delivery Exam Muller Score: Cervical Points Exam 0 1 2 3 Dilation Closed 1-2cm 3-4 cm 5-6cm Effacement 0-30% 40-50% 60-70% 80% Consistency Firm Medium Soft Station -3 -2 -1,0 +1,+2 Position Posterior Mid Anterior
[2024-09-13 01:02] LABS: Glucose Negative (Negative)
[2024-09-13 01:28] LABS: Fetal Fibronectin Negative (Negative)
[2024-09-13 05:50] VITALS: BP 118/74; PULSE 78; RESP 18; TEMP 37
[2024-09-15 12:54] LABS: Chlamydia Result Negative (Negative); GC Result Negative (Negative)
[2024-09-15 16:39] VITALS: BP 137/84; PULSE 93
== END 2024-09-13 06:13 | disposition home or self-care (01) | DRG 833 ==
LOC: BCD 09-17 13:15
PROVIDERS: Advanced Practice Midwife; PCP Pediatrics; Visit Provider Obstetrics & Gynecology
DX: O99.113 Other diseases of the blood and blood-forming organs and certain disorders involving the immune mechanism complicating pregnancy, third trimester (principal); Z3A.33 33 weeks gestation of pregnancy; M04.2 Cryopyrin-associated periodic syndromes; O99.013 Anemia complicating pregnancy, third trimester; D64.9 Anemia, unspecified; O99.353 Diseases of the nervous system complicating pregnancy, third trimester; G43.909 Migraine, unspecified, not intractable, without status migrainosus; O10.913 Unspecified pre-existing hypertension complicating pregnancy, third trimester; O99.613 Diseases of the digestive system complicating pregnancy, third trimester; K21.9 Gastro-esophageal reflux disease without esophagitis; G47.00 Insomnia, unspecified
CPT/HCPCS: 87077; 87491; 87591; 59025; 81003; 82731; 87081; 87086; 87186; G0378

== ENCOUNTER 2024-09-15 11:58 | Outpatient (CLI) | payer MEDICAID, SELFPAY ==
[2024-09-15 14:13] VITALS: BP 137/84; PULSE 93; TEMP 37.2
[2024-09-15 14:28] VITALS: BP 137/84; PULSE 93
[2024-09-15 14:40] VITALS: BP 137/84; PULSE 93; RESP 16; TEMP 36.6
--- NOTE | 2024-09-15 17:20 | W.OBNST ---
Date of service: 09/15/24 Time of Service: 17:20 NST Evaluation Reason for NST Reasons for Nonstress Test: OTHER, SEE COMMENT Reason for NST Other: R/O Rupture of membranes Gestational Age Gestational Age in Weeks and Days: 33 Weeks and 6Days Test and Monitor Explained Test/Monitor Explained: Test Explained, Monitor Explained and Patient Verbalized Understanding Vital Signs Blood Pressure: 137/84 Pulse: 93 Temperature: 97.9 F Urine Results Urine Protein: Negative Urine Ketones: Negative Urine Glucose: Negative Urine Blood: Negative NST Information Date on Monitor: 09/15/24 Time on Monitor: 14:00 Date off Monitor: 09/15/24 Time off Monitor: 14:40 Total Time on Monitor: 40 NST Interventions: PO Hydration NST Evaluation Patient States Movement: Present FHR Baseline: 145 Variability: Moderate 6-25 bpm Accelerations: 15x15 Decelerations: None NST Results: Reactive Note Ultrasound Done: N/A. NST Note Note: Dedira is here with her stepmother and partner Sylvester. She reported that she was leaking some clear fluid earlier today. Pooling and nitrazine neg. ROM plus and fern neg. Speculum exam performed and cervix appears visually closed. Reviewed signs of labor and ROM. vaginal path screen taken and neg. chlamydia taken due to new relationship with Sylvester. Follow up with prental visit with [facility]. US scheduled 10/01/24 NST Reviewed and Verified by: Makayla Xie
[2024-09-15 17:23] VITALS: BP 137/84; PULSE 93; TEMP 36.6
[2024-09-17 11:58] LABS: Chlamydia Result Negative (Negative); GC Result Negative (Negative)
== END 2024-09-15 16:00 | disposition other institution (70) ==
LOC: BCD 12:12 → OBS 14:13
PROVIDERS: Advanced Practice Midwife; PCP Pediatrics; Visit Provider Physician Assistant Medical
DX: Z3A.33 33 weeks gestation of pregnancy (principal); O47.03 False labor before 37 completed weeks of gestation, third trimester
CPT/HCPCS: 84112; 87491; 87591; 59025; 87480; 87510; 87660

== ENCOUNTER 2024-10-01 01:29 | Outpatient (CLI) | payer MEDICAID, SELFPAY ==
--- NOTE | 2024-10-01 08:50 | DI.US_ITS ---
Exam(s) US OB AKHIL WEIGHT EXAM: US OB AKHIL WEIGHT CLINICAL HISTORY: stage 1 hypertension in ,i10,O23.03,z34.90. TECHNIQUE: Transabdominal obstetrical ultrasound performed. COMPARISON: No exams were available for comparison FINDINGS: Number of fetuses: 1 position: CEPHALIC Placental location: There is a grade 2 anterior placenta. No evidence of previa. BIOMETRIC DATA: BPD: 8.96cm, 36weeks 2days HC: 32.23cm, 36weeks 3days AC: 34.58cm, 38weeks 3days FL: 7.05cm, 36weeks 1day EFW: 3,211.73g, 7lb 2.2oz, 84.5% Composite Age: 36weeks 6days CASSIA: 10/23/2024 Heart Rate: 145bpm Amniotic fluid index: 22.74cm. The largest pocket measures 7.5 cm. IMPRESSION: 1. Single live intrauterine gestation as above. 2. Estimated weight is 3212gms. This is the 85th percentile. 3. Amniotic fluid index is 22.7 cm. The largest pocket is 7.5 cm. DATA REPOSITORY:
== END 2024-10-01 01:49 ==
LOC: DI 01:29
PROVIDERS: PCP Pediatrics; Visit Provider Advanced Practice Midwife
DX: I10 Essential (primary) hypertension (principal); O23.03 Infections of kidney in pregnancy, third trimester; Z3A.38 38 weeks gestation of pregnancy
CPT/HCPCS: 76816

== ENCOUNTER 2024-10-03 14:35 | Outpatient (CLI) | payer MEDICAID, SELFPAY ==
[2024-10-03 14:42] VITALS: BP 131/88; PULSE 87
[2024-10-03 15:18] VITALS: BP 134/83; PULSE 85
[2024-10-03 16:10] LABS: HCT 31.5 % (36.0-46.0); HGB 10.1 g/dL (11.2-15.7); MCH 30.5 pg (27.0-33.0); MCHC 32.1 % (32.0-36.0); MCV 95 fL (80-95); MPV 10.8 fL (8.0-11.0); Platelet Count 192 10^3/uL (130-400); RBC 3.31 10^6/uL (3.93-5.22); RDW 16.5 % (11.7-14.6); RDW-SD 57.6 fL; WBC 9.04 10^3/uL (4.4-10.8)
[2024-10-03 16:27] LABS: ALT 14 U/L (14-59); AST 24 U/L (15-37); Albumin 2.7 g/dL (3.4-5.0); Alkaline Phosphatase 180 U/L (46-116); Anion Gap 13.0 mmol/L (3-11); BUN 7 mg/dL (7-18); Bilirubin, Total 0.3 mg/dL (0.2-1.0); CO2 23.0 mmol/L (21.0-32.0); Calcium 8.7 mg/dL (8.5-10.1); Chloride 106 mmol/L (98-107); Estimated GFR 131.70 (mL/min/1.73m2); Glucose 80 mg/dL (74-106); Potassium 3.0 mmol/L (3.5-5.1); Sodium 142 mmol/L (136-145); Total Protein 6.1 g/dL (6.4-8.2); Uric Acid 5.9 mg/dL (2.6-6.0)
[2024-10-03 17:15] LABS: PROTEIN 25.3 mg/dL; Prot/Crea Ur Ratio 0.25
--- NOTE | 2024-10-03 20:17 | W.OBNST ---
Date of service: 10/03/24 Time of Service: 20:17 NST Evaluation Reason for NST Reasons for Nonstress Test: OTHER, SEE COMMENT Reason for NST Other: elevated BP in office Gestational Age Gestational Age in Weeks and Days: 33 Weeks and 6Days Test and Monitor Explained Test/Monitor Explained: Test Explained, Monitor Explained and Patient Verbalized Understanding Urine Results Urine Protein: Negative Urine Ketones: Positive Urine Glucose: Negative Urine Blood: Negative NST Information Date on Monitor: 10/03/24 Time on Monitor: 14:48 Date off Monitor: 10/03/24 Time off Monitor: 15:20 Total Time on Monitor: 32 NST Interventions: None NST Evaluation Patient States Movement: Present Variability: Moderate 6-25 bpm Accelerations: 15x15 Decelerations: None NST Results: Reactive Note Ultrasound Done: N/A. NST Note Note: Ximena had elevated BP at the office and pedal edema. She denies headache or visual changes. preeclampsia labs WNL. Signs of preeclampsia reviewed. RTO 10/10 for visit and 10/06 for BP recheck. NST Reviewed and Verified by: Makayla Xie
== END 2024-10-03 15:55 ==
LOC: BCD 14:35 → OBS 14:40
PROVIDERS: PCP Pediatrics; Visit Provider Advanced Practice Midwife
DX: O99.891 Other specified diseases and conditions complicating pregnancy (principal); R03.0 Elevated blood-pressure reading, without diagnosis of hypertension; Z3A.33 33 weeks gestation of pregnancy
CPT/HCPCS: 80053; 85027; 59025; 82565; 84156; 84550

== ENCOUNTER 2024-10-10 10:28 | Outpatient (CLI) | payer MEDICAID, SELFPAY ==
[2024-10-10 10:34] VITALS: BP 140/91; PULSE 76; TEMP 36.9
[2024-10-10 10:51] VITALS: BP 140/91; PULSE 76
[2024-10-10 11:08] VITALS: BP 130/91; PULSE 82
[2024-10-10 11:22] VITALS: BP 131/88; PULSE 80
[2024-10-10 12:25] VITALS: BP 135/90; PULSE 83
[2024-10-10 12:39] LABS: HCT 31.5 % (36.0-46.0); HGB 10.2 g/dL (11.2-15.7); MCH 31.3 pg (27.0-33.0); MCHC 32.4 % (32.0-36.0); MCV 97 fL (80-95); MPV 11.1 fL (8.0-11.0); Platelet Count 161 10^3/uL (130-400); RBC 3.26 10^6/uL (3.93-5.22); RDW 16.3 % (11.7-14.6); RDW-SD 58.4 fL; WBC 8.73 10^3/uL (4.4-10.8)
[2024-10-10 13:02] LABS: ALT 9 U/L (14-59); AST 19 U/L (15-37); Albumin 2.4 g/dL (3.4-5.0); Alkaline Phosphatase 180 U/L (46-116); Anion Gap 8.9 mmol/L (3-11); BUN 5 mg/dL (7-18); Bilirubin, Total 0.3 mg/dL (0.2-1.0); CO2 25.1 mmol/L (21.0-32.0); Calcium 8.3 mg/dL (8.5-10.1); Chloride 108 mmol/L (98-107); Estimated GFR 137.62 (mL/min/1.73m2); Glucose 82 mg/dL (74-106); Potassium 3.6 mmol/L (3.5-5.1); Sodium 142 mmol/L (136-145); Total Protein 5.8 g/dL (6.4-8.2)
[2024-10-10 13:11] LABS: PROTEIN 14.2 mg/dL; Prot/Crea Ur Ratio 0.40
--- NOTE | 2024-10-10 19:06 | W.OBNST ---
Date of service: 10/10/24 Time of Service: 19:06 NST Evaluation Reason for NST Reasons for Nonstress Test: GESTATIONAL HYPERTENSION Gestational Age Gestational Age in Weeks and Days: 37 Weeks and 3Days Test and Monitor Explained Test/Monitor Explained: Test Explained, Monitor Explained and Patient Verbalized Understanding Vital Signs Blood Pressure: 140/91 Pulse: 76 Temperature: 98.4 F Weight: 131 lb Urine Results Urine Protein: Negative Urine Ketones: Negative Urine Glucose: Negative Urine Blood: Negative NST Information Date on Monitor: 10/10/24 Time on Monitor: 10:30 Date off Monitor: 10/10/24 Time off Monitor: 10:55 Total Time on Monitor: 25 NST Interventions: PO Hydration NST Evaluation Patient States Movement: Present FHR Baseline: 135 Variability: Moderate 6-25 bpm Accelerations: 15x15 Decelerations: None NST Results: Reactive Note Ultrasound Done: N/A. NST Note Note: CMP, CBC nml, urine pr/cr ratio is pending cvx 1/70%, firm, posterior, vtx -3, intact membranes (garza score=3) mild range BP without severe features Plan for IOL, booked for 10/14 at 38 wks, earlier if presents with increasing BP, WAHL or RUQ pain NST Reviewed and Verified by: Ashley Castaneda
[2024-10-10 19:10] VITALS: BP 140/91; PULSE 76; TEMP 36.9
== END 2024-10-10 12:40 | disposition other institution (70) ==
LOC: BCD 10:31 → OBS 10:33
PROVIDERS: PCP Pediatrics; Visit Provider Advanced Practice Midwife
DX: O13.3 Gestational [pregnancy-induced] hypertension without significant proteinuria, third trimester (principal); Z3A.37 37 weeks gestation of pregnancy
CPT/HCPCS: 80053; 85027; 59025; 82565; 84156

== ENCOUNTER 2024-10-10 11:16 | Outpatient (REF) | payer MEDICAID, SELFPAY | END 2024-10-10 11:17 | disposition home or self-care (01) | LOC: LBN 11:16 | PROVIDERS: PCP Pediatrics; Visit Provider Advanced Practice Midwife | DX: Z34.93 Encounter for supervision of normal pregnancy, unspecified, third trimester (principal); Z3A.37 37 weeks gestation of pregnancy | CPT/HCPCS: 87081 ==

== ENCOUNTER 2024-10-11 16:02 | Inpatient (IN) | payer MEDICAID, SELFPAY ==
[2024-10-11] VITALS (14 sets, daily range): BP systolic 121–159; BP diastolic 77–104; PULSE 79–108; RESP 16; TEMP 36.8–37.1; O2SAT 98; BMI 21.8
[2024-10-11 16:19] LABS: HCT 31.4 % (36.0-46.0); HGB 10.3 g/dL (11.2-15.7); MCH 30.9 pg (27.0-33.0); MCHC 32.8 % (32.0-36.0); MCV 94 fL (80-95); MPV 11.3 fL (8.0-11.0); Platelet Count 178 10^3/uL (130-400); RBC 3.33 10^6/uL (3.93-5.22); RDW 16.3 % (11.7-14.6); RDW-SD 56.5 fL; WBC 10.97 10^3/uL (4.4-10.8)
[2024-10-11 16:38] LABS: ALT 14 U/L (14-59); AST 19 U/L (15-37); Albumin 2.7 g/dL (3.4-5.0); Alkaline Phosphatase 194 U/L (46-116); Anion Gap 10.5 mmol/L (3-11); BUN 6 mg/dL (7-18); Bilirubin, Total 0.3 mg/dL (0.2-1.0); CO2 23.5 mmol/L (21.0-32.0); Calcium 9.0 mg/dL (8.5-10.1); Chloride 108 mmol/L (98-107); Estimated GFR 137.62 (mL/min/1.73m2); Glucose 82 mg/dL (74-106); Potassium 3.4 mmol/L (3.5-5.1); Sodium 142 mmol/L (136-145); Total Protein 6.2 g/dL (6.4-8.2)
--- NOTE | 2024-10-11 17:09 | HPE_ITS ---
Date of service: 10/11/24 Time of Service: 17:09 Assessment and Plan Assessment and plan (1) Pre-eclampsia added to pre-existing hypertension: Status: Acute (2) 37 weeks gestation of : Status: Acute Assessment and plan: A: IUP at 37 weeks Chronic hypertension with newly superimposed pre-eclampsia (without severe features) Category I surveillance Unripe cervix P: - Admit for induction of labor, discussed indication for IOL with Deidra and her family who is in agreement with plan - PEC serologic labs repeated, PC already known to be elevated as of yesterday (0.4) - Cook catheter inserted (80 mL U, 60 mL V) using a speculum and stylet - Will plan to also use misoprostol vaginally while Cook is in place - Continuous monitoring - Will plan to repeat serologic PEC labs in 12 hours or sooner PRN - Vaginal G/C/T obtained - Dr. Mcdowell updated about pt status and plan of care OB-HPI Labor/Delivery History of Present Illness Reason for Visit: preeclampsia w/o severe features Chief Complaint: Other (Blood pressure evaluation). CASSIA Calculator Estimated Delivery Date Method Current WG Current Estimate 10/28/24 Ultrasound #1 37w 4d Other Estimates 10/17/24 LMP (Uncertain) 39w 1d Comments: Deidra is a 18 year old at 37 weeks 4 days gestation who returns to L&D for assessment of blood pressure as she was found yesterday to have elevated BPs with new development of proteinuria. Blood pressures remains elevated today. She denies focal complaints. History of Present Expected Delivery Route/Plan - CNM FOB - Tomás Garnica BG- [place] team: Tomás and step Mom Sylvia Desires epidural anesthesia GBS negative on 09/13, repeated 10/10 results pending Specific Issues/Plan 1. 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 20wk [place] [facility] normal, post placenta, 3VC, 1b. MFM consult: possible risk for flare , tylenol prn, FU with rheumatology if unrelenting fever/flare 2. Migraines, stopped Topamax with +UPT, relieved by tylenol and takes magnesium 500mg 3. Stage 1 HTN, no meds. Baseline CMP/CBC=nml, pr/cr 0.15, 3a. Consider 32wk growth US 3b. MFM consult: defer AP testing if BPs remain stage 1 HTN, delivery 40- 41wks 3c. NST at the Center and normal preeclampsia labs, P/C ratio- 0.25 4. BMI 17, discussed protein needs and recommended weight gain 35-45lbs 5. 5 P+, initial UDS negative, 28 wk UDS=negative 6. cfDNA low risk female, CF Neg, AFP- undecided. 7. Anemia - Hgb 10.8- Discussed. Taking gummies. Daily iron, recheck at 34 weeks:13.4 8. Seen in ED 08/17 & transferred to [facility] for sepsis, dx'ed pylonephritis 8a. Keflex 250 mg QD recommended for the remainder of the . 8b. Seen at the center for rule out labor, pos. 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 On IEP. 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 Pectus excavatum (Chronic 12/26/11) no interventions necessary per [facility] Surgery Frequent headaches (Chronic 09/10/14) Neurology at [facility] ADHD (attention deficit hyperactivity disorder), combined type (Chronic 09/07/14) diagnosed by Child Development at [facility]- started concerta Medical History Parosmia Insomnia (02/05/17) Allergic rhinitis Custody issue IN CUSTODY OF SINCE 2 MONTHS OF AGE- PARENTS NOT INVOLVED School problem IEP updated 05/11/20-05/10/21: Counseling services once a week 45 min; Math intervention 4 times a week; reading intervention twice a week; updated IEP in chart as of 07/21/20 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 Allergy to shellfish Social History Smoking/Tobacco Use Status: Never Second Hand Exposure: Yes (outside only, no indoor smoking, grandfather is only smoker in house) Smoking risk assessment performed?: Yes Alcohol Intake: former Drug use: Never Substance use type: does not use Adopted: Yes (in the custody of grandparents due to DCF involvement, parents not involved) Caregiver/Support person: No Foster care: No Household members: other Details: grandparents Housing: house Communication Needs: None and Corrective Lenses Pets and animals: Yes (2 dogs, 1 cat) Pets and animals: cat(s) and dog(s) Sexually active: No Do you think of yourself as: straight/heterosexual Current gender identity: male Do you feel safe at home: Yes Do you feel safe in your relationship?: Yes Additional Social history: GRANDMOTHER WITH CUSTODY SINCE 2 MONTHS OF AGE- PARENTS HOMELESS AND NEGLECT History History 1 Para 0 Hx # Term Pregnancies 0 Multiple births 0 Hx # Pregnancies 0 Ectopic pregnancies 0 AB induced 0 Hx Number of Living Children 0 AB spontaneous 0 Meds Allergies and Home Medications Allergies Allergy/AdvReac Type Severity Reaction Status Date / Time bee venom protein (honey bee) Allergy Severe PROBLEMS Verified 10/10/24 09:33 BREATHING/ HIVES honey Allergy Severe Skin Rash Verified 10/10/24 09:33 davis Allergy Mild Skin Rash Verified 10/10/24 09:33 cow dander Allergy Itching Verified 10/10/24 09:33 grass pollen Allergy Hives Verified 10/10/24 09:33 perfume AdvReac Mild watery Verified 10/10/24 09:33 eyes, runny nose, face gets blotchy pollen extracts AdvReac Mild watery Verified 10/10/24 09:33 eyes, runny nose, face gets blotchy cologne Allergy Mild Headache Uncoded 10/10/24 09:33 hay Allergy Mild Skin Rash Uncoded 10/10/24 09:33 Haile] Allergy Mild rash Uncoded 10/10/24 09:33 sun Allergy Mild skin Uncoded 10/10/24 09:33 blotches shellfish Allergy Unknown Unknown Uncoded 10/10/24 09:33 Halloween makeup AdvReac Skin Rash Uncoded 10/10/24 09:33 Home Medications ?Medication ?Instructions ?Recorded ?Confirmed ?Type inhalational spacing device (Space ##2 12/17/20 Rx Chamber Plus) chlorhexidine gluconate 0.12 % 15 ml mucous membrane B ID #118 mL 05/24/21 10/10/24 Rx mouthwash (Peridex) Symbicort 80 mcg-4.5 mcg/actuation See Rx Instructions .Route 09/19/23 10/10/24 Rx HFA aerosol inhaler .COMPLEX #10.2 grams (budesonide-formoterol) cetirizine 10 mg tablet 10 mg PO DAILY #90 tab-caps 09/19/23 10/10/24 Rx famotidine 10 mg tablet 10 mg PO BID #60 tabs 10/10/24 Rx albuterol sulfate 90 mcg/actuation 2 puff inhalation Q 6H 03/05/24 10/10/24 History aerosol inhaler canakinumab (PF) 150 mg/mL 150 mg subcut Q8W 04/16/24 10/03/24 History subcutaneous solution (Ilaris (PF)) Held on 08/16/24. Instructions: Changed by Provider vitamins no.180-ferrous 1 tab PO DAILY #90 ta bs 07/09/24 10/10/24 Rx fumarate 27 mg-folic acid 1 mg tablet ( Plus Vitamin-Mineral) epinephrine 0.3 mg/0.3 mL 0.3 mg (0.3 mL) IM ONCE ##1 07/11/24 10/10/24 Rx injection, auto-injector (EpiPen 2-Wellington) cephalexin 250 mg capsule 250 mg PO DAILY #30 caps 10/10/24 Rx ferrous sulfate 325 mg (65 mg 325 mg PO DAILY #30 tabs 09/02/24 10/10/24 Rx iron) tablet (Feosol) Exam Physical Exam Vital signs: Temp Pulse Resp BP Pulse Ox 98.8 F 90 16 136/91 H 98 10/11/24 16:49 10/11/24 16:49 10/11/24 16:49 10/11/24 16:49 10/11/24 16:49 Narrative: ROS: General: feels well Neuro: denies WAHL, denies scotoma CV: + edema of feet, partner thinks her face is also puffy GI: denies abdominal pain OB: good FM, no regular CTXs, no VB, lost mucous plug yesterday PE: Constitutional: well-nourished, well-developed, alert Respiratory: effort is unlabored, normal breath sounds bilaterally Cardiovascular: regular rate, normal rhythm, no murmurs, 1+ edema bilateral LEXT Gastrointestinal: non-tender to palpation, tone normal without rigidity or guarding, no masses Genitourinary: - external: no inflammation, no lesions - cervix:SVE: FT /50% / -1 - uterus: gravid, normal shape, director inpatient headache program regular contractions - perineum: within normal limits - pelvimetry: adequate for EFW Neurologic: DTRs +3 left patella / + right patella, 1 beat clonus right and left sides Skin and Subcutaneous Tissue: no rashes, no lesions, no areas of discoloration Fetus: - EFW: 3.2 kg - Presentation: vertex, confirmed by POCUS - 140s baseline, moderate variability, + accels, no decels Detailed Labor and Delivery Exam Dilation: 0.5 Effacement (%): 50 station: -1 Cervix position: posterior Consistency: soft Hayden Score: Cervical Points Exam 0 1 2 3 Dilation Closed 1-2cm 3-4 cm 5-6cm Effacement 0-30% 40-50% 60-70% 80% Consistency Firm Medium Soft Station -3 -2 -1,0 +1,+2 Position Posterior Mid Anterior HAYDEN Score(Cervical Ripeness Score): 5 Results Abnormal Lab Findings: Abnormal Labs 10/11/24 16:00 WBC 10.97 H RBC 3.33 L Hgb 10.3 L Hct 31.4 L RDW 16.3 H MPV 11.3 H Potassium 3.4 L Chloride 108 H BUN 6 L Creatinine 0.5 L Alkaline Phosphatase 194 H Total Protein 6.2 L Albumin 2.7 L Risk Assessment Risks Reviewed Risks Reviewed Upon Admission: Yes
[2024-10-11] MEDS: miSOPROStol 25 MCG TAB PO (19:22)
[2024-10-11] MEDS: Cephalexin 250 MG CAP PO (20:28)
[2024-10-11] MEDS: Normal Saline Flush 10 ML SYR IVP (20:33)
--- NOTE | 2024-10-11 20:36 | W.ANESPRE ---
General Info Date of Service Date Performed: 10/11/24 Height: 5 ft 4.96 in Weight: 59.421 kg Body Mass Index (BMI): 21.8 Meds Allergies and Home Medications Allergies Allergy/AdvReac Type Severity Reaction Status Date / Time bee venom protein (honey bee) Allergy Severe PROBLEMS Verified 10/10/24 09:33 BREATHING/ HIVES honey Allergy Severe Skin Rash Verified 10/10/24 09:33 davis Allergy Mild Skin Rash Verified 10/10/24 09:33 cow dander Allergy Itching Verified 10/10/24 09:33 grass pollen Allergy Hives Verified 10/10/24 09:33 perfume AdvReac Mild watery Verified 10/10/24 09:33 eyes, runny nose, face gets blotchy pollen extracts AdvReac Mild watery Verified 10/10/24 09:33 eyes, runny nose, face gets blotchy cologne Allergy Mild Headache Uncoded 10/10/24 09:33 hay Allergy Mild Skin Rash Uncoded 10/10/24 09:33 Haile] Allergy Mild rash Uncoded 10/10/24 09:33 sun Allergy Mild skin Uncoded 10/10/24 09:33 blotches shellfish Allergy Unknown Unknown Uncoded 10/10/24 09:33 Halloween makeup AdvReac Skin Rash Uncoded 10/10/24 09:33 Home Medication ?Medication ?Instructions ?Recorded inhalational spacing device (Space ##2 12/17/20 Chamber Plus) chlorhexidine gluconate 0.12 % 15 ml mucous membrane BID #118 mL 05/24/21 mouthwash (Peridex) Symbicort 80 mcg-4.5 mcg/actuation See Rx Instructions .Route 09/19/23 HFA aerosol inhaler .COMPLEX #10.2 grams (budesonide-formoterol) cetirizine 10 mg tablet 10 mg PO DAILY #90 tab-caps 09/19/23 famotidine 10 mg tablet 10 mg PO BID #60 tabs 10/31/23 albuterol sulfate 90 mcg/actuation 2 puff inhalation Q6H 03/05/24 aerosol inhaler canakinumab (PF) 150 mg/mL 150 mg subcut Q8W 04/16/24 subcutaneous solution (Ilaris (PF)) Held on 08/16/24. Instructions: Changed by Provider vitamins no.180-ferrous 1 tab PO DAILY #90 tabs 07/09/24 fumarate 27 mg-folic acid 1 mg tablet ( Plus Vitamin-Mineral) epinephrine 0.3 mg/0.3 mL 0.3 mg (0.3 mL) IM ONCE ##1 07/11/24 injection, auto-injector (EpiPen 2-Wellington) cephalexin 250 mg capsule 250 mg PO DAILY #30 caps 09/02/24 ferrous sulfate 325 mg (65 mg 325 mg PO DAILY #30 tabs 09/02/24 iron) tablet (Feosol) Current Visit Medications: Current Medications Generic Name Dose Route Start Last Admin Trade Name Freq PRN Reason Stop Dose Admin Cephalexin 250 mg 10/11/24 18:05 10/11/24 20:28 Cephalexin 250 Mg Cap PO 250 mg DAILY DENITA Administration Ringer's Solution 1,000 mls @ 200 mls/hr 10/11/24 18:15 IV INFUSION DENITA IV Miscellaneous Supplies 1 each 10/11/24 16:15 Iv Access IV DIRECTED DENITA IV Miscellaneous Supplies 1 each 10/11/24 16:15 Iv Access IV DIRECTED DENITA Misoprostol 25 mcg 10/11/24 19:00 10/11/24 19:22 Misoprostol 25 Mcg Tab PO 25 mcg Q4H DENITA Administration Sodium Chloride 0 ml 10/11/24 16:05 Normal Saline Flush 10 Ml Syr IVP PRN PRN Sodium Chloride 0 ml 10/11/24 20:00 10/11/24 20:33 Normal Saline Flush 10 Ml Syr IVP 10 ml BID DENITA Administration Sodium Chloride 0 ml 10/11/24 16:05 Normal Saline 10 Ml Vial IJ DIRECTED PRN Terbutaline Sulfate 0.25 mg 10/11/24 18:04 Terbutaline 1 Mg/Ml Vial SC PRN PRN PFSH Active Problems Active Problems: Problem Status Onset Code 37 weeks gestation of Acute Z3A.37 Pre-eclampsia added to pre-existing hypertension Acute O11.9 Proteinuria affecting in third trimester Acute O12.13 Pyelonephritis affecting in third trimester Acute O23.03 Anemia affecting Acute O99.019 Acute Z34.90 Chronic hypertension Acute I10 Migraine Chronic G43.909 Depression Chronic Asthma Chronic 05/24/12 J45.909 Familial cold autoinflammatory syndrome Chronic M04.2 Anxiety Chronic F41.9 Specific developmental learning difficulty Chronic 12/31/14 F81.9 Pectus excavatum Chronic 12/26/11 Q67.6 Frequent headaches Chronic 09/10/14 R51 ADHD (attention deficit hyperactivity disorder), combined type Chronic 09/07/14 F90.2 Medical History Medical History Parosmia Insomnia (02/05/17) Allergic rhinitis Custody issue IN CUSTODY OF GM SINCE 2 MONTHS OF AGE- PARENTS NOT INVOLVED School problem IEP updated 05/11/20-05/10/21: Counseling services once a week 45 min; Math intervention 4 times a week; reading intervention twice a week; updated IEP in chart as of 07/21/20 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 GERD (gastroesophageal reflux disease) Bee sting allergy anaphylaxis, carries EpiPen Speech delay Sleep difficulties Surgical History Surgical History Tonsillectomy Adenoidectomy Tobacco Smoking/Tobacco Use Status: Never Second hand exposure: Yes (outside only, no indoor smoking, grandfather is only smoker in house) Alcohol Alcohol Intake: former Substance Use Substance use: Never Substance use type: does not use Prental History History 1 Para 0 Hx # Term Pregnancies 0 Multiple births 0 Hx # Pregnancies 0 Ectopic pregnancies 0 AB induced 0 Hx Number of Living Children 0 AB spontaneous 0 Vital Signs and Lab Results Vital Signs Most Recent Vital Signs in EMR: Most Recent Vital Signs Temp Pulse Resp BP Pulse Ox 36.8 C 88 16 134/86 98 10/11/24 19:25 10/11/24 20:29 10/11/24 17:17 10/11/24 20:29 10/11/24 17:17 Lab Results 10/11/24 16:00 10/11/24 16:00 Blood Type / Crossmatch: Antibody Screen NEGATIVE Today Complete Blood Count: WBC, (4.4-10.8) 10.97 10^3/uL H Today, 16:00 RBC, (3.93-5.22) 3.33 10^6/uL L Today, 16:00 Hgb, (11.2-15.7) 10.3 g/dL L Today, 16:00 Hct, (36.0-46.0) 31.4 % L Today, 16:00 Plt Count, (130-400) 178 10^3/uL Today, 16:00 Complete Metabolic Panel: Sodium, (136-145) 142 mmol/L Today, 16:00 Potassium, (3.5-5.1) 3.4 mmol/L L Today, 16:00 Chloride, (98-107) 108 mmol/L H Today, 16:00 Carbon Dioxide, (21.0-32.0) 23.5 mmol/L Today, 16:00 BUN, (7-18) 6 mg/dL L Today, 16:00 Creatinine, (0.55-1.02) 0.5 mg/dL L Today, 16:00 Est GFR (CKD-EPI 2020), (mL/min/1.73m2) 137.62 Today, 16:00 Calcium, (8.5-10.1) 9.0 mg/dL Today, 16:00 Albumin, (3.4-5.0) 2.7 g/dL L Today, 16:00 Glucose, (74-106) 82 mg/dL Today, 16:00 Liver Function Panel: ALT, (14-59) 14 U/L Today, 16:00 AST, (15-37) 19 U/L Today, 16:00 Infectious Disease: N.gonorrhoeae DNA Probe, (Negative) Negative 09/15/24, 14:45 Anesthesia Assessment and Plan Anesthesia History Personal History: No History of Anesthesia Complications Family History: No Family History of Anesthesia Complications Exercise Tolerance Exercise Tolerance: Metabolic Equivalents>4 Pertinent Negatives Pertinent Negatives: No Symptoms of GERD Cardiac & Pulmonary Exam Cardiac Exam: Normal S1/S2 Heart Sounds Pulmonary Exam: Clear Bilateral Breath Sounds Implantable Cardiac Device Does patient have a Pacemaker or an ICD?: No Airway Exam Known Difficult Airway: No Mallampati Class: 2 Mouth Opening: Normal (> 3cm) Thyromental Distance: Greater than 3 cm Neck Range of Motion: Full ROM Neck Circumference: Normal Teeth Condition: Normal Dentition ASA Classification ASA Score: ASA 2 Emergency Case?: No NPO Status NPO Status: Unable to Assess Status Status: Positive HCG (full term) Anesthesia Plan Resuscitation Status: Full Code Anesthesia Technique: Labor Epidural Airway Planned: Natural Airway Pain Management: Epidural Monitors Used: Standard Monitors
[2024-10-11] MEDS: Acetaminophen 500 MG TAB 1000 MG PO (22:55)
[2024-10-12] VITALS (83 sets, daily range): BP systolic 116–194; BP diastolic 57–111; PULSE 70–139; RESP 14–20; TEMP 36.4–39; O2SAT 93–100
[2024-10-12] MEDS: Normal Saline Flush 10 ML SYR IVP ×2 (01:11→04:22)
--- NOTE | 2024-10-12 01:27 | PGE_ITS ---
Date of service: 10/12/24 Time of Service: 01:27 Assessment and Plan Assessment and plan (1) 37 weeks gestation of : Status: Acute (2) Pre-eclampsia added to pre-existing hypertension: Status: Acute Assessment and plan: A: IUP at 37 weeks 5 days cHTN with super-imposed PEC, currently stable blood pressures not requiring treatment, no severe features Category I surveillance Cervical ripening in progress, Cook catheter in place, S/P misoprostol x 1 P: - Continue use of Cook catheter until it expels or needs to be removed at 12 vesna rs post-insertion. Further misoprostol not indicated at this time given frequency of contractions. - Repeat CBC and CMP at 0500 - Will plan to initiate Pitocin once the Cook catheter expels - Discussed ways to promote sleep during cervical ripening, and the importance of rest in this phase. She declines medication assistance to help with sleep at this time. Objective Abnormal lab results 10/11/24 Range/Units 16:00 WBC 10.97 H (4.4-10.8) 10^3/uL RBC 3.33 L (3.93-5.22) 10^6/uL Hgb 10.3 L (11.2-15.7) g/dL Hct 31.4 L (36.0-46.0) % RDW 16.3 H (11.7-14.6) % MPV 11.3 H (8.0-11.0) fL Potassium 3.4 L (3.5-5.1) mmol/L Chloride 108 H (98-107) mmol/L BUN 6 L (7-18) mg/dL Creatinine 0.5 L (0.55-1.02) mg/dL Alkaline Phosphatase 194 H (46-116) U/L Total Protein 6.2 L (6.4-8.2) g/dL Albumin 2.7 L (3.4-5.0) g/dL Temp Pulse Resp BP Pulse Ox 97.9 F 85 16 116/57 L 98 10/12/24 01:13 10/12/24 00:29 10/11/24 17:17 10/12/24 00:29 10/11/24 17:17 Laboratory Results WBC 10.97 10^3/uL (4.4-10.8) H 10/11/24 16:00 RBC 3.33 10^6/uL (3.93-5.22) L 10/11/24 16:00 Hgb 10.3 g/dL (11.2-15.7) L 10/11/24 16:00 Hct 31.4 % (36.0-46.0) L 10/11/24 16:00 MCV 94 fL (80-95) 10/11/24 16:00 MCH 30.9 pg (27.0-33.0) 10/11/24 16:00 MCHC 32.8 % (32.0-36.0) 10/11/24 16:00 RDW 16.3 % (11.7-14.6) H 10/11/24 16:00 Plt Count 178 10^3/uL (130-400) 10/11/24 16:00 MPV 11.3 fL (8.0-11.0) H 10/11/24 16:00 Sodium 142 mmol/L (136-145) 10/11/24 16:00 Potassium 3.4 mmol/L (3.5-5.1) L 10/11/24 16:00 Chloride 108 mmol/L (98-107) H 10/11/24 16:00 Carbon Dioxide 23.5 mmol/L (21.0-32.0) 10/11/24 16:00 Anion Gap 10.5 mmol/L (3-11) 10/11/24 16:00 BUN 6 mg/dL (7-18) L 10/11/24 16:00 Creatinine 0.5 mg/dL (0.55-1.02) L 10/11/24 16:00 Est GFR (CKD-EPI 2020) 137.62 (mL/min/1.73m2) 10/11/24 16:00 Glucose 82 mg/dL (74-106) 10/11/24 16:00 Calcium 9.0 mg/dL (8.5-10.1) 10/11/24 16:00 Total Bilirubin 0.3 mg/dL (0.2-1.0) 10/11/24 16:00 AST 19 U/L (15-37) 10/11/24 16:00 ALT 14 U/L (14-59) 10/11/24 16:00 Alkaline Phosphatase 194 U/L (46-116) H 10/11/24 16:00 Total Protein 6.2 g/dL (6.4-8.2) L 10/11/24 16:00 Albumin 2.7 g/dL (3.4-5.0) L 10/11/24 16:00 Chlamydia DNA Probe Cancelled 10/11/24 21:40 Chlamydia/GC DNA Source Cancelled 10/11/24 21:40 N.gonorrhoeae DNA Probe Cancelled 10/11/24 21:40 ABO/Rh O Positive 10/11/24 16:00 Antibody Screen NEGATIVE 10/11/24 16:00 Objective Narrative Objective Narrative: General: found to be lightly sleeping, from which she aroused easily UCs: q 3-5 minutes, moderate to palaption FHTs: 140s, moderate variability, + accels, no decels SVE: Cook catheter was tugged on by this CNM and felt to descend, so the vaginal ballon was fully deflated and the cervix assessed to be 5 cm, which was still holding the uterine balloon in place. The vaginal balloon was then re-inflated with 60 mL I:Os balanced, net -275 mL since admission Subjective Interval history since last seen: Deidra has been able to sleep some, though also is finding contractions to be closer and stronger. She had a headache, which resolved with Tylenol. Her partner Tomás is sleeping at her side. ROS: General: feels well Neuro: denies WAHL currently, denies scotoma GI: denies upper abdominal pain OB: good FM Results Hemoglobin/Hematocrit: Hgb 10.3 g/dL (11.2-15.7) L 10/11/24 16:00 Hct 31.4 % (36.0-46.0) L 10/11/24 16:00 Abnormal Lab Findings: Abnormal Labs 10/11/24 16:00 WBC 10.97 H RBC 3.33 L Hgb 10.3 L Hct 31.4 L RDW 16.3 H MPV 11.3 H Potassium 3.4 L Chloride 108 H BUN 6 L Creatinine 0.5 L Alkaline Phosphatase 194 H Total Protein 6.2 L Albumin 2.7 L
[2024-10-12] MEDS: Lactated Ringers 1,000 ML 125 ML IV (04:22)
--- NOTE | 2024-10-12 04:24 | PGE_ITS ---
Date of service: 10/12/24 Time of Service: 04:27 Informed Consent Informed Consent: Regional Anesthesia Pelvic Exam Dilation: 5 Effacement (%): 70 station: 0 Cervix Position: mid Consistency: soft BISHOPS Score(Cervical Ripeness Score): 10 Vaginal Exam Presentation: Vertex Assessment and Plan Assessment and plan (1) 37 weeks gestation of : Status: Acute (2) Pre-eclampsia added to pre-existing hypertension: Status: Acute Assessment and plan: A: IUP at 37 weeks 4 days Category I surveillance Maternal request for regional anesthesia cHTN with superimposed PEC (no severe features) At the patient's request, pain management options in labor were discussed, including IV medications and regional anesthesia. After expressing interest in an epidural, she was counseled further on risks related to epidural administration, which include: inadequate analgesia; maternal hypotension; urina ry retention; heart rate changes (usually transient); anesthetic risks (very rare); and effects on length of labor. She was also counseled that regional anesthesia is not found to increase the risk of delivery. At this time, she would like to proceed with an epidural. P: - LR bolus started. ROOM SERVICE ATTENDANT notified of epidural request. - Cook catheter removed - Will plan to initiate Pitocin was the epidural is in place, and the consider amniotomy a few hours after more regular / intensifying contractions begin - CMP and CBC ordered Objective Abnormal lab results 10/11/24 Range/Units 16:00 WBC 10.97 H (4.4-10.8) 10^3/uL RBC 3.33 L (3.93-5.22) 10^6/uL Hgb 10.3 L (11.2-15.7) g/dL Hct 31.4 L (36.0-46.0) % RDW 16.3 H (11.7-14.6) % MPV 11.3 H (8.0-11.0) fL Potassium 3.4 L (3.5-5.1) mmol/L Chloride 108 H (98-107) mmol/L BUN 6 L (7-18) mg/dL Creatinine 0.5 L (0.55-1.02) mg/dL Alkaline Phosphatase 194 H (46-116) U/L Total Protein 6.2 L (6.4-8.2) g/dL Albumin 2.7 L (3.4-5.0) g/dL Temp Pulse Resp BP Pulse Ox 97.6 F 81 16 140/83 98 10/12/24 03:28 10/12/24 03:29 10/11/24 17:17 10/12/24 03:29 10/11/24 17:17 Laboratory Results WBC 10.97 10^3/uL (4.4-10.8) H 10/11/24 16:00 RBC 3.33 10^6/uL (3.93-5.22) L 10/11/24 16:00 Hgb 10.3 g/dL (11.2-15.7) L 10/11/24 16:00 Hct 31.4 % (36.0-46.0) L 10/11/24 16:00 MCV 94 fL (80-95) 10/11/24 16:00 MCH 30.9 pg (27.0-33.0) 10/11/24 16:00 MCHC 32.8 % (32.0-36.0) 10/11/24 16:00 RDW 16.3 % (11.7-14.6) H 10/11/24 16:00 Plt Count 178 10^3/uL (130-400) 10/11/24 16:00 MPV 11.3 fL (8.0-11.0) H 10/11/24 16:00 Sodium 142 mmol/L (136-145) 10/11/24 16:00 Potassium 3.4 mmol/L (3.5-5.1) L 10/11/24 16:00 Chloride 108 mmol/L (98-107) H 10/11/24 16:00 Carbon Dioxide 23.5 mmol/L (21.0-32.0) 10/11/24 16:00 Anion Gap 10.5 mmol/L (3-11) 10/11/24 16:00 BUN 6 mg/dL (7-18) L 10/11/24 16:00 Creatinine 0.5 mg/dL (0.55-1.02) L 10/11/24 16:00 Est GFR (CKD-EPI 2020) 137.62 (mL/min/1.73m2) 10/11/24 16:00 Glucose 82 mg/dL (74-106) 10/11/24 16:00 Calcium 9.0 mg/dL (8.5-10.1) 10/11/24 16:00 Total Bilirubin 0.3 mg/dL (0.2-1.0) 10/11/24 16:00 AST 19 U/L (15-37) 10/11/24 16:00 ALT 14 U/L (14-59) 10/11/24 16:00 Alkaline Phosphatase 194 U/L (46-116) H 10/11/24 16:00 Total Protein 6.2 g/dL (6.4-8.2) L 10/11/24 16:00 Albumin 2.7 g/dL (3.4-5.0) L 10/11/24 16:00 Chlamydia DNA Probe Cancelled 10/11/24 21:40 Chlamydia/GC DNA Source Cancelled 10/11/24 21:40 N.gonorrhoeae DNA Probe Cancelled 10/11/24 21:40 ABO/Rh O Positive 10/11/24 16:00 Antibody Screen NEGATIVE 10/11/24 16:00 Objective Narrative Objective Narrative: VS: blood pressures have been normal to mild range elevation UCs: q 2-3 minutes, mild- moderate to palpation FHTs: 135 baseline, moderate variability, + accels, no decels SVE: (done after Cook catheter was removed) 5 cm / 70% / 0 station / midposition / soft Subjective Interval history since last seen: Deidra has been able to sleep but about an hour ago, contractions became intolerable and she is now requesting an epidural. Results Hemoglobin/Hematocrit: Hgb 10.3 g/dL (11.2-15.7) L 10/11/24 16:00 Hct 31.4 % (36.0-46.0) L 10/11/24 16:00 Abnormal Lab Findings: Abnormal Labs 10/11/24 16:00 WBC 10.97 H RBC 3.33 L Hgb 10.3 L Hct 31.4 L RDW 16.3 H MPV 11.3 H Potassium 3.4 L Chloride 108 H BUN 6 L Creatinine 0.5 L Alkaline Phosphatase 194 H Total Protein 6.2 L Albumin 2.7 L
[2024-10-12 04:38] LABS: Abs Immature Grans 0.03 10^3/uL (0.0-0.06); HCT 29.8 % (36.0-46.0); HGB 9.7 g/dL (11.2-15.7); Immature Grans % 0.3 %; MCH 30.9 pg (27.0-33.0); MCHC 32.6 % (32.0-36.0); MCV 95 fL (80-95); MPV 11.3 fL (8.0-11.0); Platelet Count 163 10^3/uL (130-400); RBC 3.14 10^6/uL (3.93-5.22); RDW 16.1 % (11.7-14.6); RDW-SD 56.5 fL; WBC 11.03 10^3/uL (4.4-10.8)
[2024-10-12 04:56] LABS: ALT 11 U/L (14-59); AST 18 U/L (15-37); Albumin 2.4 g/dL (3.4-5.0); Alkaline Phosphatase 180 U/L (46-116); Anion Gap 10.2 mmol/L (3-11); BUN 7 mg/dL (7-18); Bilirubin, Total 0.3 mg/dL (0.2-1.0); CO2 23.8 mmol/L (21.0-32.0); Calcium 8.0 mg/dL (8.5-10.1); Chloride 108 mmol/L (98-107); Estimated GFR 131.70 (mL/min/1.73m2); Glucose 86 mg/dL (74-106); Potassium 3.4 mmol/L (3.5-5.1); Sodium 142 mmol/L (136-145); Total Protein 5.6 g/dL (6.4-8.2)
[2024-10-12] MEDS: FentaNYL/ROPIvacaine 2 mcg/ml and 0.1% 200 ML CADD Cassette EP (05:15)
--- NOTE | 2024-10-12 05:43 | W.ANESNEU ---
Epidural/Spinal Catheter Date Performed: 10/12/24 Procedure Start: 05:01 Procedure Stop: 05:34 Requesting Provider: Liliana London Procedure Location: Obstetrics Reason Performed: Labor Epidural Standard Monitors Applied: ECG, Blood Pressure, SpO2 and See EMR for corresponding vital signs Patient Position: Sitting Sedation Given (Indicate Dose Given): No Sedation given Patient Mental Status: Awake Sterility: Hand Hygiene, Surgical Cap, Surgical Mask, Sterile Gloves, Sterile Drape/Sheet and Chlorhexidine Procedure Location: L4-L5 Interspace Epidural Needle: Tuohy 18 Gauge Needle Length: 3.5 Inch Needle Approach: Midline Epidural Procedure: Skin Prepped, Sterile Drape Placed, 1% Lidocaine to skin and subcutaneous tissue with 25G needle, Tuohy Needle placed, INDER to Saline Used, Epidural Catheter Placed, Negative Heme, Negative CSF Flow and Tuohy Needle Removed Catheter Placed?: Catheter Placed Test Dose (Indicate Dose Given): 3ml 1.5% Lidocaine with 1:200K Epinephrine Given Loss of Resistance Depth (cm): 5 Catheter depth at skin (cm): 11 Dressing: Sorbaview Dressing Placed, Mastisol Used and Dressing reinforced with Tape Epidural Provider Bolus (Indicate Dose Given): Total bolus dose given in 3-5 ml divided doses and Total Ropivacaine 0.1% with Fentanyl 2mcg/ml Given from pump. (ml) Dose:: 7cc Additives (Indicate Dose Given ): None Infusion Medication: Medication Infusion Began Medication Infusion: Ropivacaine 0.1% with Fentanyl 2mcg/ml Maintenance Infusion Rate (ml/hour): 10 PCEA Bolus Dose (ml): 5 Post Procedure Pain score (0-10): 0 Block Level: T6 Paresthesia: None Ultrasound: Not Used Number of Attempts (See previous attempts in note section): 2 Procedure Tolerated: No Complications and Patient tolerated well Procedure Outcome: Successful Performed By: Alexander Puentes
[2024-10-12] MEDS: Oxytocin/Normal Saline 30 UNIT/500 ML BAG 2 UNITS IV (06:00)
[2024-10-12] MEDS: Cephalexin 250 MG CAP PO (08:37)
--- NOTE | 2024-10-12 08:56 | W.PM.OBNL1 ---
Date of service: 10/12/24 Time of Service: 08:56 Informed Consent Informed Consent: Regional Anesthesia Pelvic Exam Dilation: 6 Effacement (%): 80 station: 0 Assessment and Plan Assessment and plan (1) 37 weeks gestation of : Status: Acute (2) Pre-eclampsia added to pre-existing hypertension: Status: Acute (3) Iron deficiency anemia of mother during labor and delivery: Status: Acute Assessment and plan: A: IUP at 37 w 5d cHTN with super-imposed PEC (no severe features), stable Induction of labor, currently on Pitocin, s/p Cook and misoprostol Category I-II surveillance, overall reassuring Anemia P: - Will plan active management of third stage of labor and have 1 unit pRBCs crossmatched - Reassess in 2-3 hours or sooner PRN - Anticipate vaginal (4) Encounter for induction of labor: Status: Acute Objective Abnormal lab results 10/11/24 10/12/24 Range/Units 16:00 04:30 WBC 10.97 H 11.03 H (4.4-10.8) 10^3/uL RBC 3.33 L 3.14 L (3.93-5.22) 10^6/uL Hgb 10.3 L 9.7 L (11.2-15.7) g/dL Hct 31.4 L 29.8 L (36.0-46.0) % RDW 16.3 H 16.1 H (11.7-14.6) % MPV 11.3 H 11.3 H (8.0-11.0) fL Absolute Neutrophils 7.89 H (1.2-6.7) 10^3/uL Potassium 3.4 L 3.4 L (3.5-5.1) mmol/L Chloride 108 H 108 H (98-107) mmol/L BUN 6 L (7-18) mg/dL Creatinine 0.5 L (0.55-1.02) mg/dL Calcium 8.0 L (8.5-10.1) mg/dL ALT 11 L (14-59) U/L Alkaline Phosphatase 194 H 180 H (46-116) U/L Total Protein 6.2 L 5.6 L (6.4-8.2) g/dL Albumin 2.7 L 2.4 L (3.4-5.0) g/dL Temp Pulse Resp BP Pulse Ox 97.6 F 95 H 14 122/78 98 10/12/24 03:28 10/12/24 08:23 10/12/24 07:00 10/12/24 08:23 10/12/24 08:23 Laboratory Results WBC 11.03 10^3/uL (4.4-10.8) H 10/12/24 04:30 RBC 3.14 10^6/uL (3.93-5.22) L 10/12/24 04:30 Hgb 9.7 g/dL (11.2-15.7) L 10/12/24 04:30 Hct 29.8 % (36.0-46.0) L 10/12/24 04:30 MCV 95 fL (80-95) 10/12/24 04:30 MCH 30.9 pg (27.0-33.0) 10/12/24 04:30 MCHC 32.6 % (32.0-36.0) 10/12/24 04:30 RDW 16.1 % (11.7-14.6) H 10/12/24 04:30 Plt Count 163 10^3/uL (130-400) 10/12/24 04:30 MPV 11.3 fL (8.0-11.0) H 10/12/24 04:30 Immature Gran % 0.3 % 10/12/24 04:30 Neutrophils % 71.5 % 10/12/24 04:30 Lymphocytes % 20.5 % 10/12/24 04:30 Monocytes % 6.7 % 10/12/24 04:30 Eosinophils % 0.6 % 10/12/24 04:30 Basophils % 0.4 % 10/12/24 04:30 Nucleated RBC % 0.0 % (0.0-0.3) 10/12/24 04:30 Absolute Neutrophils 7.89 10^3/uL (1.2-6.7) H 10/12/24 04:30 Absolute Lymphocytes 2.26 10^3/uL (1.2-3.4) 10/12/24 04:30 Absolute Monocytes 0.74 10^3/uL (0.1-0.8) 10/12/24 04:30 Absolute Eosinophils 0.07 10^3/uL (0.0-0.7) 10/12/24 04:30 Absolute Basophils 0.04 10^3/uL (0.0-0.2) 10/12/24 04:30 Sodium 142 mmol/L (136-145) 10/12/24 04:30 Potassium 3.4 mmol/L (3.5-5.1) L 10/12/24 04:30 Chloride 108 mmol/L (98-107) H 10/12/24 04:30 Carbon Dioxide 23.8 mmol/L (21.0-32.0) 10/12/24 04:30 Anion Gap 10.2 mmol/L (3-11) 10/12/24 04:30 BUN 7 mg/dL (7-18) 10/12/24 04:30 Creatinine 0.6 mg/dL (0.55-1.02) 10/12/24 04:30 Est GFR (CKD-EPI 2020) 131.70 (mL/min/1.73m2) 10/12/24 04:30 Glucose 86 mg/dL (74-106) 10/12/24 04:30 Calcium 8.0 mg/dL (8.5-10.1) L 10/12/24 04:30 Total Bilirubin 0.3 mg/dL (0.2-1.0) 10/12/24 04:30 AST 18 U/L (15-37) 10/12/24 04:30 ALT 11 U/L (14-59) L 10/12/24 04:30 Alkaline Phosphatase 180 U/L (46-116) H 10/12/24 04:30 Total Protein 5.6 g/dL (6.4-8.2) L 10/12/24 04:30 Albumin 2.4 g/dL (3.4-5.0) L 10/12/24 04:30 Chlamydia DNA Probe Cancelled 10/11/24 21:40 Chlamydia/GC DNA Source Cancelled 10/11/24 21:40 N.gonorrhoeae DNA Probe Cancelled 10/11/24 21:40 ABO/Rh O Positive 10/11/24 16:00 Antibody Screen NEGATIVE 10/11/24 16:00 Objective Narrative Objective Narrative: VS: normotensive in the past 4 hours UCs: q 2-3 minutes, moderate to palpation FHTs: 140s, moderate variability, + accels 30 minutes ago, non-recurrent variable decel SVE: 6 / 80 / 0 / vertex Pitocin is at 7 mU / min Procedure: Amniotomy was discussed as a means to faciliate labor, including potential risks of infection with prolonged ROM and cord prolapse if the vertex is not well-applied to the cervix. At this time the potential benefits of amniotomy are thought to outweigh any risk. She consented to amniotomy, which was performed returning a moderate amount of clear fluid. heart tones were stable throughout. Subjective Interval history since last seen: Deidra has been able to rest well since placement of epidural. She is now awake and aware of contractions only mildly as tightenings. An indwelling schroeder catheter was just inserted. ROS: General: feels well Neuro: no WAHL, no scotoma Results Hemoglobin/Hematocrit: Hgb 9.7 g/dL (11.2-15.7) L 10/12/24 04:30 Hct 29.8 % (36.0-46.0) L 10/12/24 04:30 Abnormal Lab Findings: Abnormal Labs 10/11/24 10/12/24 16:00 04:30 WBC 10.97 H 11.03 H RBC 3.33 L 3.14 L Hgb 10.3 L 9.7 L Hct 31.4 L 29.8 L RDW 16.3 H 16.1 H MPV 11.3 H 11.3 H Absolute Neutrophils 7.89 H Potassium 3.4 L 3.4 L Chloride 108 H 108 H BUN 6 L Creatinine 0.5 L Calcium 8.0 L ALT 11 L Alkaline Phosphatase 194 H 180 H Total Protein 6.2 L 5.6 L Albumin 2.7 L 2.4 L
[2024-10-12] MEDS: miSOPROStol 200 MCG TAB 600 MCG SL (11:18)
--- NOTE | 2024-10-12 11:56 | W.OBDELIVERY ---
Date of service: 10/12/24 Time of Service: 11:56 OB Labor/ Delivery Information Baby A Delivery Delivery Method: Spontaneaous Presentation: Vertex Vertex Position: Left Occipital Anterior Cord Description-Baby A: 3 Vessels Amniotic Fluid: Clear Estimated Blood Loss: 800 mL Delivery Outcome: Liveborn Providers Nurse Childcare Administrator: Liliana London Nurse: Nicole Santamaria Labor/Delivery Information Number of Babies in Womb: 1 Steroids Given: None Reason Steroids Not Administered: N/A Group Beta Strep: Negative Maternal Complications: None Shoulder Dystocia: No Stages of Labor Complete Dilatation Date: 10/12/24 Complete Dilatation Time: 10:50 ROM Baby A: 10/12/24 ROM Baby A: 08:45 ROM Total Time- Baby A: [id number] Infant Delivery Date-Baby A: 10/12/24 Infant Delivery Time-Baby A: 11:05 Labor Stage 2 Duration: 15 minutes Placenta Delivery Date-Baby A: 10/12/24 Placenta Delivery Time-Baby A: 11:15 Labor-Stage 3 Duration: 10 minutes Placenta Cultured: No Placenta Status: Delivered Baby A Infant Gender: Female Gestational Status: Term (39-41.6 wks) Gestational Age in Weeks/Days: 37 Weeks and 5 Days Score-1 Minute Interval(Baby A) Heart Rate-1 minute: 100 BPM or Greater Respiratory Effort- 1 minute: Spontaneous/Strong Cry Muscle Tone-1 minute: Active Movement Reflex Response-1 minute: Prompt Response Color-1 minute: Bluish Hands or Feet Total Score-1 minute: 9 Score-5 Minute Interval(Baby A) Heart Rate- 5 minute: 100 BPM or Greater Respiratory Effort-5 minute: Spontaneous/Strong Cry Muscle Tone-5 minute: Active Movement Reflex Response-5 minute: Prompt Response Color-5 minute: Bluish Hands or Feet Total Score- 5 minute: 9 Note: Now Gestational age: 37 weeks 5 days 1st stage of labor: Induction of labor using for pre-eclampsia super-imposed on cHTN. She had a Cook catheter placed, received one dose of misoprostol vaginally, then started Pitocin followed by amniotomy. She used an epidural for pain relief. Progress through active labor was rapid after amniotomy. 2nd stage of labor: She was found to be complete, and she commenced pushing at +2 station. In a semi-reclining position, she had a NSVB of a viable female . The was born OA, and restituted to LOT. The shoulder and body delivered immediately. The infant was immediately vigorous, and was placed on the maternal abdomen where she continued to cry, and was dried. 3rd stage of labor: Dilute IV Pitocin was given for active management of the 3rd stage of labor. The cord was double clamped by this CNM and transected by the 's father. Cord blood was collected for routine analysis. After separation bleeding and cord lengthening were noted, the placenta expelled spontaneously, intact, 3-V cord, Mcmanus mechanism. The fundus was massaged and found to be somewhat boggy but firmed with massage. She was given 600 mcg of misoprostol bucally for the excessive bleeding noted. Small clots were expressed with vigorous massage. EBL 800 mL per graduated bag. The perineum was inspected and to have a 1st degree perineal and left vaginal side wall laceration, both of which were repaired with 4-0 Vicryl using 1% lidocaine local anesthetic. Mother and stable at the conclusion of this note. Intrapartum complications: pre-eclampsia superimposed on cHTN, obstetric laceration
[2024-10-12] MEDS: Acetaminophen 325 MG TAB 650 MG PO ×2 (13:30→19:09)
[2024-10-12] MEDS: Ibuprofen 600 MG TAB PO (13:30)
[2024-10-12] MEDS: Hamamelis Leaf/Glycerin 100 EACH BOX PR (13:30)
--- NOTE | 2024-10-12 13:56 | W.ANESPOSTOP ---
Postoperative Evaluation Date, Time and Location Date Performed: 10/12/24 Time Performed: 13:56 Patient Location: Obstetrics Vital Signs Most Recent Imported Vital Signs: Most Recent Vital Signs Temp Pulse Resp BP Pulse Ox 36.8 C 95 H 14 138/93 H 95 10/12/24 08:23 10/12/24 13:07 10/12/24 09:00 10/12/24 13:05 10/12/24 13:07 Pain Score Most Recent Pain Score: Most Recent Pain Score Pain Level 0 10/12/24 09:00 Assessment Mental Status: Awake (Alert & Oriented to Patient Baseline) Airway and Respiratory Function: Patent airway with normal (patient baseline) respiratory exam Cardiovascular Function: Hemodynamically Stable Hydration Status: Adequately Hydrated Nausea & Vomiting: No Nausea or Vomiting Pain: Pt. Denies Any Pain Peripheral Nerve Block: Patient did not receive a nerve block Postoperative Comments:: Epidural cath removed by OB automobile radio repairer. Cath intact. Pt has no current pain. Does stte her back is sore. Mi Puentes, COMPLAINT INVESTIGATIONS OFFICER
[2024-10-13 00:22] VITALS: BP 125/88; PULSE 79; RESP 18; TEMP 36.7
[2024-10-13 07:02] LABS: HCT 28.1 % (36.0-46.0); HGB 9.3 g/dL (11.2-15.7); MCH 31.6 pg (27.0-33.0); MCHC 33.1 % (32.0-36.0); MCV 96 fL (80-95); MPV 11.6 fL (8.0-11.0); Platelet Count 159 10^3/uL (130-400); RBC 2.94 10^6/uL (3.93-5.22); RDW 15.8 % (11.7-14.6); RDW-SD 55.4 fL; WBC 10.50 10^3/uL (4.4-10.8)
[2024-10-13 09:00] VITALS: BP 137/90; PULSE 75; RESP 12; TEMP 36.6; O2SAT 98
[2024-10-13] MEDS: Ibuprofen 600 MG TAB PO ×2 (09:14→22:06)
[2024-10-13] MEDS: Cephalexin 250 MG CAP PO (09:14)
[2024-10-13 12:10] LABS: Chlamydia Result Negative (Negative); GC Result Negative (Negative)
[2024-10-13 13:00] VITALS: BP 146/96; PULSE 83; RESP 12; TEMP 36.7; O2SAT 98
--- NOTE | 2024-10-13 15:04 | W.PM.OBPNV1 ---
Date of service: 10/13/24 Time of Service: 15:04 Assessment and Plan Assessment and plan (1) Iron deficiency anemia of mother during labor and delivery: Status: Acute (2) Pre-eclampsia added to pre-existing hypertension: Status: Acute (3) Term delivered: Status: Acute Assessment and plan: A: PPD#1, mild range intermittently, no severe features Pt opts to formula feed P: Reviewed BP readings with MD Will repeat labs in the morning Plan for discharge tomorrow if stable Consider iron infusion for anemia Subjective Subjective Patient comments: No complaints, Pain well controlled, Tolerating diet and Flatus present Patient's Mood: tired baby status: Doing well, Bottle feeding well, Rooming in and Strong Bonding Observed [place] feeding status: Exclusively formula feeding Exam Physical Exam Vital signs: Temp Pulse Resp BP Pulse Ox 97.9 F 75 12 137/90 98 10/13/24 09:00 10/13/24 09:00 10/13/24 09:00 10/13/24 09:00 10/13/24 09:00 Vital Signs Reviewed: Yes Narrative: reviewed blood pressures with MD Constitutional Constitutional: no acute distress, average body habitus and cooperative HEENT Exam HEENT Exam: Normal Neck Exam Neck Exam: Normal Breast Exam Bilateral: Breast Exam: Normal and Soft Nipple Exam: Normal and Uninjured Respiratory Exam Respiratory Exam: Normal Cardiovascular Exam Cardiovascular Exam: Normal Abdominal Exam Abdomen: Other (soft, nontender) Fundal Exam Fundus: Below Umbilicus and Firm Rectal Exam Rectal Exam: Normal Exam Perineum: Repair Intact Extremities Exam Extremity Exam: Normal, Full ROM and Warm to Touch Back/Spine/Pelvis Exam Back Exam: Normal Skin Exam Skin Exam: Normal Neurological Exam Neurological Exam: Normal Psychiatric Exam Psychiatric Exam: Normal Results Hemoglobin/Hematocrit: Hgb 9.3 g/dL (11.2-15.7) L 10/13/24 06:00 Hct 28.1 % (36.0-46.0) L 10/13/24 06:00 Abnormal Lab Findings: Abnormal Labs 10/11/24 10/12/24 10/13/24 16:00 04:30 06:00 WBC 10.97 H 11.03 H RBC 3.33 L 3.14 L 2.94 L Hgb 10.3 L 9.7 L 9.3 L Hct 31.4 L 29.8 L 28.1 L MCV 96 H RDW 16.3 H 16.1 H 15.8 H MPV 11.3 H 11.3 H 11.6 H Absolute Neutrophils 7.89 H Potassium 3.4 L 3.4 L Chloride 108 H 108 H BUN 6 L Creatinine 0.5 L Calcium 8.0 L ALT 11 L Alkaline Phosphatase 194 H 180 H Total Protein 6.2 L 5.6 L Albumin 2.7 L 2.4 L
[2024-10-13 17:00] VITALS: BP 142/90; PULSE 71; RESP 12; TEMP 36.6
[2024-10-13 20:00] VITALS: BP 145/96; PULSE 70; RESP 18; TEMP 36.6
[2024-10-14 02:00] VITALS: BP 149/94; PULSE 78; RESP 18
[2024-10-14 05:35] LABS: HCT 30.7 % (36.0-46.0); HGB 9.9 g/dL (11.2-15.7); MCH 31.0 pg (27.0-33.0); MCHC 32.2 % (32.0-36.0); MCV 96 fL (80-95); MPV 11.0 fL (8.0-11.0); Platelet Count 193 10^3/uL (130-400); RBC 3.19 10^6/uL (3.93-5.22); RDW 15.9 % (11.7-14.6); RDW-SD 56.1 fL; WBC 11.55 10^3/uL (4.4-10.8)
[2024-10-14 05:52] LABS: ALT 14 U/L (14-59); AST 33 U/L (15-37); Albumin 2.4 g/dL (3.4-5.0); Alkaline Phosphatase 166 U/L (46-116); Anion Gap 9.6 mmol/L (3-11); BUN 7 mg/dL (7-18); Bilirubin, Total 0.3 mg/dL (0.2-1.0); CO2 26.4 mmol/L (21.0-32.0); Calcium 8.3 mg/dL (8.5-10.1); Chloride 108 mmol/L (98-107); Estimated GFR 137.62 (mL/min/1.73m2); Glucose 77 mg/dL (74-106); Potassium 3.6 mmol/L (3.5-5.1); Sodium 144 mmol/L (136-145); Total Protein 6.0 g/dL (6.4-8.2)
--- NOTE | 2024-10-14 08:13 | W.PM.OBPNV1 ---
Date of service: 10/14/24 Time of Service: 08:13 Assessment and Plan Assessment and plan (1) Iron deficiency anemia of mother during labor and delivery: Status: Acute Assessment and plan: Pt declines IV iron infusion, agrees to oral iron supplementation Denies dizziness when ambulating, denies SOB Maternal pulse <90 (2) Pre-eclampsia added to pre-existing hypertension: Status: Acute Assessment and plan: Labs nml this morning, Reviewed mild range pressures with MD Will start labetalol 200 mg PO BID If discharged today have return in 24 hrs for BP check (3) Term delivered: Status: Acute Assessment and plan: A: PPD#2, mild range BP persists, no severe features Desires discharge today, labs this morning nml P: Reviewed BP readings with MD Start labetalol 200 mg PO BID Discharge today, f/up in 24 hrs for BP check Pt agrees to iron supplementation orally Written instructions reviewed and given to pt In addition to BP check in 24 hrs, RTO 1 wk, 2 wks and 6 wks PP Subjective Subjective Patient comments: No complaints, Pain well controlled, Tolerating diet and Flatus present Patient's Mood: happy baby status: Doing well, Bottle feeding well, Rooming in and Strong Bonding Observed feeding status: Pumping and bottle feeding (mostly formula) Exam Physical Exam Vital signs: Temp Pulse Resp BP Pulse Ox 98 F 78 18 149/94 H 98 10/13/24 20:00 10/14/24 02:00 10/14/24 02:00 10/14/24 02:00 10/13/24 13:00 Vital Signs Reviewed: Yes Narrative: Reviewed BP's with Dr. Mcdowell Constitutional Constitutional: no acute distress, average body habitus and cooperative HEENT Exam HEENT Exam: Normal Neck Exam Neck Exam: Normal Breast Exam Bilateral: Breast Exam: Normal and Soft Respiratory Exam Respiratory Exam: Normal Cardiovascular Exam Cardiovascular Exam: Normal Abdominal Exam Abdomen: Other (soft, nontender) Fundal Exam Fundus: Below Umbilicus and Firm Rectal Exam Rectal Exam: Normal Exam Perineum: Repair Intact Extremities Exam Extremity Exam: Normal, Full ROM and Warm to Touch Back/Spine/Pelvis Exam Back Exam: Normal Skin Exam Skin Exam: Normal Neurological Exam Neurological Exam: Normal Psychiatric Exam Psychiatric Exam: Normal Results Hemoglobin/Hematocrit: Hgb 9.9 g/dL (11.2-15.7) L 10/14/24 05:15 Hct 30.7 % (36.0-46.0) L 10/14/24 05:15 Abnormal Lab Findings: Abnormal Labs 10/11/24 10/12/24 10/13/24 16:00 04:30 06:00 WBC 10.97 H 11.03 H RBC 3.33 L 3.14 L 2.94 L Hgb 10.3 L 9.7 L 9.3 L Hct 31.4 L 29.8 L 28.1 L MCV 96 H RDW 16.3 H 16.1 H 15.8 H MPV 11.3 H 11.3 H 11.6 H Absolute Neutrophils 7.89 H Potassium 3.4 L 3.4 L Chloride 108 H 108 H BUN 6 L Creatinine 0.5 L Calcium 8.0 L ALT 11 L Alkaline Phosphatase 194 H 180 H Total Protein 6.2 L 5.6 L Albumin 2.7 L 2.4 L 10/14/24 05:15 WBC 11.55 H RBC 3.19 L Hgb 9.9 L Hct 30.7 L MCV 96 H RDW 15.9 H MPV Absolute Neutrophils Potassium Chloride 108 H BUN Creatinine 0.5 L Calcium 8.3 L ALT Alkaline Phosphatase 166 H Total Protein 6.0 L Albumin 2.4 L Hemorrrhage Note IV Site Left Forearm: IV Catheter Gauge: 18
[2024-10-14 09:00] VITALS: BP 152/95; PULSE 83; RESP 18; TEMP 36.8; O2SAT 99
[2024-10-14] MEDS: Cephalexin 250 MG CAP PO (09:36)
[2024-10-14] MEDS: Labetalol 100 MG TAB 200 MG PO (09:36)
[2024-10-14 10:30] VITALS: BP 149/89
[2024-10-14 11:30] VITALS: BP 137/88
--- NOTE | 2024-10-14 12:43 | W.PM.OBDISCH ---
Date of service: 10/14/24 Time of Service: 12:44 DS: Diagnosis Discharge Diagnosis (1) Iron deficiency anemia of mother during labor and delivery: Status: Acute (2) Pre-eclampsia added to pre-existing hypertension: Status: Acute (3) Term delivered: Status: Acute Discharge Plan Disposition Patient Disposition: Home Condition: Improving Discharge Details Reason For Visit: Preeclampsia w/o Severe Features Admit Date/Time: 10/11/24 16:02 Admit Provider: Liliana London Attending Provider: Liliana London Primary Care Provider: Mukesh Keating Hospital Course Hospital Course: Admitted for induction of labor due to pre-eclampsia, on HD#2, nml course though mild range BP has persisted with labwork WNL, started on labetalol 200 mg pO BID, discharged to home on PPD#2, f/up for BP check in 24 hrs. Pt has chosen to formula feed and also pump breastmilk. Home Meds and New Rx's Prescriptions: No Action albuterol sulfate 90 mcg/actuation HFA aerosol inhaler 2 puff inhalation Q6H Ilaris (PF) 150 mg/mL solution 150 mg subcut Q8W Rx Instructions: On Hold Plus Vitamin-Mineral 27 mg iron- 1 mg tablet 1 tab PO DAILY Qty: 90 6RF ferrous sulfate [Feosol] 325 mg (65 mg iron) tablet 325 mg PO DAILY Qty: 30 5RF (DME) Space Chamber Plus Spacer 1 ea Miscellaneous Q4H PRN Qty: 2 0RF Rx Instructions: use with inhaler every 4 hours as needed chlorhexidine gluconate [Peridex] 0.12 % mouthwash 15 ml mucous membrane BID Qty: 118 2RF Rx Instructions: rinse mouth 30 seconds and spit out twice a day cetirizine 10 mg tablet 10 mg PO DAILY Qty: 90 3RF budesonide-formoterol [Symbicort] 80-4.5 mcg/actuation HFA aerosol inhaler See Rx Instructions .ROUTE .COMPLEX Qty: 10.2 2RF Dose Instruction: INHALE 2 PUFFS BY MOUTH TWICE DAILY. MAY ALSO USE 1-2 PUFFS EVERY 4 HOURS NEEDED Rx Instructions: INHALE 2 PUFFS BY MOUTH TWICE DAILY. MAY ALSO USE 1-2 PUFFS EVERY 4 HOURS NEEDED epinephrine [EpiPen 2-[place]] 0.3 mg/0.3 mL auto-injector 0.3 mg IM ONCE Qty: 1 2RF labetalol 200 mg tablet 200 mg PO BID 30 Days Qty: 60 4RF Discharge Instructions Additional Instructions: Please keep f/up BP check appt tomorrow, and at 1 wk, 2 wks, and 6 wks . Start labetalol medication as prescribed twice per day and take a daily iron supplement. Call for any and all concerns. Stand Alone Forms: BC Post Vaginal Deliver Activity:: Activity as Tolerated Equipment/Supplies:: No Equipment Needed Diet:: Normal Diet OB:DS Summary Summary Vaginal Delivery Method: Spontaneaous Episiotomy Description: None Laceration Description: Perineal and Other Laceration Extension: First Degree Contraception Discussed Contraception Discussed: Yes Contraceptive Plan: Levonorgestrel Implant, [place] Gender-Baby A: Female weight: 7 lb 13.575 oz Status at Discharge Functional status at discharge: independent ambulation Overall status at discharge: patient is progressing back to baseline Mental Status: mental status grossly normal Speech and Movement: speech and movement normal and speech clear Mood: congruent mood Affect: normal affect Exam Physical Exam Vital signs: Temp Pulse Resp BP Pulse Ox 98.2 F 83 18 137/88 99 10/14/24 09:00 10/14/24 09:00 10/14/24 09:00 10/14/24 11:30 10/14/24 09:00 Constitutional Constitutional: no acute distress, average body habitus and cooperative HEENT Exam HEENT Exam: Normal Neck Exam Neck Exam: Normal Breast Exam Bilateral: Breast Exam: Normal and Soft Respiratory Exam Respiratory Exam: Normal Cardiovascular Exam Cardiovascular Exam: Normal Abdominal Exam Abdomen: Other (soft, nontender) Fundal Exam Fundus: Below Umbilicus and Firm Rectal Exam Rectal Exam: Normal Exam Perineum: Repair Intact Extremities Exam Extremity Exam: Normal, Full ROM and Warm to Touch Back/Spine/Pelvis Exam Back Exam: Normal Skin Exam Skin Exam: Normal Neurological Exam Neurological Exam: Normal Psychiatric Exam Psychiatric Exam: Normal PFSH All Active Problems (Updated 10/13/24 @ 15:07 by Ashley Castaneda) Term delivered (Acute) Iron deficiency anemia of mother during labor and delivery (Acute) Pre-eclampsia added to pre-existing hypertension (Acute) Chronic hypertension (Acute) Migraine (Chronic) Stopped Topomax with +UPT Depression (Chronic) Asthma (Chronic 05/24/12) 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 On IEP. 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 Pectus excavatum (Chronic 12/26/11) no interventions [place] [facility] [place] Frequent headaches (Chronic 09/10/14) [place]rology [place] [facility] ADHD (attention deficit hyperactivity disorder), combined type (Chronic 09/07/14) diagnosed by Child Development [place] [facility] started concerta Medical History (Updated 10/13/24 @ 15:07 by Ashley Castaneda) Anemia affecting Pyelonephritis affecting in third trimester Proteinuria affecting in third trimester 37 weeks gestation of Encounter for induction of labor Parosmia Insomnia (02/05/17) Allergic rhinitis Custody issue IN CUSTODY OF GM SINCE 2 MONTHS OF AGE- PARENTS NOT INVOLVED School problem IEP updated 05/11/20-05/10/21: Counseling services once a week 45 min; Math intervention 4 times a week; reading intervention twice a week; updated IEP in chart as of 07/21/20 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 Allergy to shellfish Social History Smoking/Tobacco Use Status: Never Second Hand Exposure: Yes (outside only, no indoor smoking, grandfather is only smoker in house) Smoking risk assessment performed?: Yes Alcohol Intake: former Drug use: Never Substance use type: does not use Adopted: Yes (in the custody of grandparents due to DCF involvement, parents not involved) Caregiver/Support person: No Foster care: No Household members: other Details: grandparents Housing: house Communication Needs: None and Corrective Lenses Pets and animals: Yes (2 dogs, 1 cat) Pets and animals: cat(s) and dog(s) Sexually active: No Do you think of yourself as: straight/heterosexual Current gender identity: male Do you feel safe at home: Yes Do you feel safe in your relationship?: Yes Additional Social history: GRANDMOTHER WITH CUSTODY SINCE 2 MONTHS OF AGE- PARENTS HOMELESS AND NEGLECT History History 1 Para 0 Hx # Term Pregnancies 0 Multiple births 0 Hx # Pregnancies 0 Ectopic pregnancies 0 AB induced 0 Hx Number of Living Children 0 AB spontaneous 0 DS: Data Vitals/I&O Vitals and I&O: Vital Signs Temperature 98.2 F 10/14/24 09:00 Temperature Source Oral 10/14/24 09:00 Pulse 83 10/14/24 09:00 Pulse Rhythm Regular 10/14/24 09:00 Respiratory Rate 18 10/14/24 09:00 Respiratory Depth Normal 10/14/24 09:00 Blood Pressure 137/88 10/14/24 11:30 Blood Pressure Mean 104 10/14/24 11:30 Pulse Oximetry 99 10/14/24 09:00 Oxygen Delivery Method Room Air 10/11/24 17:17 Oxygen Flow Rate 0 10/11/24 17:17 Pain Level 4 10/13/24 22:06 Comment Pt reports that due to her autoimmune condition her temps often run around 101-102 F. Provider aware of temp 10/12/24 13:05 Intake & Output 10/13/24 10/14/24 10/14/24 23:59 11:59 23:59 Other: Urine Color Pale Pale Data Completed and Pending Labs on day of discharge: Labs from last 24 hours 10/14/24 10/11/24 05:15 20:30 WBC 11.55 H RBC 3.19 L Hgb 9.9 L Hct 30.7 L MCV 96 H MCH 31.0 MCHC 32.2 RDW 15.9 H Plt Count 193 MPV 11.0 Sodium 144 Potassium 3.6 Chloride 108 H Carbon Dioxide 26.4 Anion Gap 9.6 BUN 7 Creatinine 0.5 L Est GFR (CKD-EPI 2020) 137.62 Glucose 77 Calcium 8.3 L Total Bilirubin 0.3 AST 33 ALT 14 Alkaline Phosphatase 166 H Total Protein 6.0 L Albumin 2.4 L Chlamydia DNA Probe Negative Chlamydia/GC DNA Source Not Applicable N.gonorrhoeae DNA Probe Negative
== END 2024-10-14 15:15 | disposition home or self-care (01) | DRG 806 ==
LOC: BCD 16:07 → OBS 16:09
PROVIDERS: Advanced Practice Midwife; Admitting Provider Advanced Practice Midwife; PCP Pediatrics; Visit Provider Advanced Practice Midwife
DX: O11.4 Pre-existing hypertension with pre-eclampsia, complicating childbirth (principal); O99.12 Other diseases of the blood and blood-forming organs and certain disorders involving the immune mechanism complicating childbirth; Z37.0 Single live birth; O99.354 Diseases of the nervous system complicating childbirth; Z3A.37 37 weeks gestation of pregnancy; O99.02 Anemia complicating childbirth; D50.9 Iron deficiency anemia, unspecified; O99.344 Other mental disorders complicating childbirth; F41.8 Other specified anxiety disorders; O99.62 Diseases of the digestive system complicating childbirth; K21.9 Gastro-esophageal reflux disease without esophagitis; G43.909 Migraine, unspecified, not intractable, without status migrainosus; F90.9 Attention-deficit hyperactivity disorder, unspecified type; G47.00 Insomnia, unspecified; F81.2 Mathematics disorder; F81.0 Specific reading disorder; D89.89 Other specified disorders involving the immune mechanism, not elsewhere classified; O70.0 First degree perineal laceration during delivery
CPT/HCPCS: 59200; 36415; 80053; 85027; 86850; 86900; 86901; 87491; 87591; 59025; 85025; J3490

== ENCOUNTER 2024-10-15 07:22 | Outpatient (CLI) | payer MEDICAID, SELFPAY ==
[2024-10-15 12:35] VITALS: BP 148/87
[2024-10-15 12:52] VITALS: BP 144/89; PULSE 74
--- NOTE | 2024-10-15 13:27 | NUR.NOTE ---
Pt seen by VIOLA Gamez. Pt reports prescription not available until 15:00 today, CNM ordered one PO dose of 200 mg labetalol to be given now. Pt denies any symptoms following dose of labetalol she rec'd prior to d/c to home yesterday. Per VIOLA, pt to d/c to home, take BP at home later this evening and report results to Center RN. Pt agreeable to taking prescription as ordered this evening as well as tomorrow and calling with repeat BP tomorrow. Following this anticipate pt will be seen on Sunday. Pt verbally agreeable to plan, presents with no questions or concerns. Nursing Note:
[2024-10-15] MEDS: Labetalol 100 MG TAB 200 MG PO (13:30)
== END 2024-10-15 07:23 | disposition home or self-care (01) ==
PROVIDERS: PCP Pediatrics; Visit Provider Advanced Practice Midwife
DX: O11.5 Pre-existing hypertension with pre-eclampsia, complicating the puerperium (principal)

== ENCOUNTER 2024-10-17 07:14 | Outpatient (CLI) | payer MEDICAID, SELFPAY ==
[2024-10-17 12:40] VITALS: BP 129/83
== END 2024-10-17 07:15 | disposition home or self-care (01) ==
LOC: BCD 07:14
PROVIDERS: PCP Pediatrics; Visit Provider Advanced Practice Midwife
DX: O13.5 Gestational [pregnancy-induced] hypertension without significant proteinuria, complicating the puerperium (principal)
CPT/HCPCS: 99211

== ENCOUNTER 2024-10-22 11:53 | Outpatient (CLI) | payer MEDICAID, SELFPAY ==
[2024-10-22 12:05] LABS: HCT 35.5 % (36.0-46.0); HGB 11.0 g/dL (11.2-15.7); MCH 29.4 pg (27.0-33.0); MCHC 31.0 % (32.0-36.0); MCV 95 fL (80-95); MPV 8.9 fL (8.0-11.0); Platelet Count 390 10^3/uL (130-400); RBC 3.74 10^6/uL (3.93-5.22); RDW 15.0 % (11.7-14.6); RDW-SD 52.9 fL; WBC 7.01 10^3/uL (4.4-10.8)
[2024-10-22 12:39] LABS: ALT 29 U/L (14-59); AST 22 U/L (15-37); Albumin 3.4 g/dL (3.4-5.0); Alkaline Phosphatase 165 U/L (46-116); Anion Gap 5.6 mmol/L (3-11); BUN 9 mg/dL (7-18); Bilirubin, Total 0.3 mg/dL (0.2-1.0); CO2 29.4 mmol/L (21.0-32.0); Calcium 9.1 mg/dL (8.5-10.1); Chloride 106 mmol/L (98-107); Estimated GFR 131.70 (mL/min/1.73m2); Glucose 91 mg/dL (74-106); Potassium 4.0 mmol/L (3.5-5.1); Sodium 141 mmol/L (136-145); Total Protein 7.2 g/dL (6.4-8.2); Uric Acid 5.1 mg/dL (2.6-6.0)
== END 2024-10-22 11:54 | disposition home or self-care (01) ==
LOC: LBO 11:53
PROVIDERS: PCP Pediatrics; Visit Provider Advanced Practice Midwife
DX: Z34.91 Encounter for supervision of normal pregnancy, unspecified, first trimester (principal); O11.1 Pre-existing hypertension with pre-eclampsia, first trimester; O80 Encounter for full-term uncomplicated delivery
CPT/HCPCS: 36415; 80053; 85027; 84550

== ENCOUNTER 2025-01-26 19:26 | Outpatient (REF) | payer MEDICAID, SELFPAY ==
[2025-01-28 11:19] LABS: Chlamydia Result Negative (Negative); GC Result Negative (Negative)
== END 2025-01-26 19:27 | disposition home or self-care (01) ==
LOC: LBN 19:26
PROVIDERS: Visit Provider Advanced Practice Midwife
DX: O72.1 Other immediate postpartum hemorrhage (principal); R58 Hemorrhage, not elsewhere classified
CPT/HCPCS: 87491; 87591; 87480; 87510; 87660